=== PATIENT | female | born 2000 | race African-American/Black ===

== ENCOUNTER 2024-11-12 05:19 | Emergency (ER) | payer MEDICAID, SELFPAY ==
[2024-11-12 05:21] VITALS: BMI 46.4
[2024-11-12 05:38] VITALS: BP 119/74; PULSE 98; RESP 16; TEMP 37.2; O2SAT 100
--- NOTE | 2024-11-12 06:01 | PD.EDURI ---
Upper Respiratory Inf. RME/HPI General Chief Complaint: Flu Like Symptoms Stated Complaint: CONGESTION, SOB, MIGRAINE H/A Time Seen by Provider: 11/12/24 05:53 Source: patient Arrival date/time: 11/12/24 05:19 23-year-old obese female presents emergency department complaining of nasal congestion, headache, cough, and generalized bodyaches for 2 days. Mode of arrival: ambulatory Limitations: no limitations Related Data Previous Rx's ?Medication ?Instructions ?Recorded acetaminophen 500 mg capsule 500 mg PO Q6H PRN pain #30 caps 11/12/24 Allergies Allergy/AdvReac Type Severity Reaction Status Date / Time No Known Allergies Allergy Verified 03/01/24 20:34 Review of Systems Review of Systems Systems Reviewed: All systems reviewed, normal except as documented Constitutional Constitutional: Reports system reviewed and no additional complaints, except as documented, Reports body ache(s), Denies chills, Denies fever(s) and Reports headache(s) Eyes Eyes: Reports system reviewed and no additional complaints, except as documented and Denies change in vision ENT Ears, Nose, Mouth, and Throat: Reports system reviewed and no additional complaints, except as documented, Denies disequilibrium, Denies dizziness, Reports headache(s), Reports nasal congestion, Denies sore throat and Denies vertigo Cardiovascular Cardiovascular: Reports system reviewed and no additional complaints, except as documented, Denies chest pain and Denies dyspnea Respiratory Respiratory: Reports system reviewed and no additional complaints, except as documented, Denies chest congestion, Reports cough and Denies dyspnea Gastrointestinal Gastrointestinal: Reports system reviewed and no additional complaints, except as documented, Denies abdominal pain, Denies nausea and Denies vomiting Musculoskeletal Musculoskeletal: Reports system reviewed and no additional complaints, except as documented, Denies abnormal gait and Denies arthralgias Integumentary/Breasts Skin/Breast: Reports system reviewed and no additional complaints, except as documented, Denies erythema, Denies rash and Denies wounds Neurologic Neurologic: Reports system reviewed and no additional complaints, except as documented, Denies abnormal gait, Denies disequilibrium, Denies dizziness, Reports headache(s) and Denies vertigo Past Medical History Social History SMOKING STATUS: Never smoker ED Exam General Limitations: Present no limitations General appearance: Present alert and in no apparent distress Head Head exam: Present atraumatic Eye Eye exam: Present normal appearance, PERRL and EOMI ENT ENT exam: Present normal exam, normal oropharynx and mucous membranes moist Neck Neck exam: Present normal inspection, full ROM and trachea midline Chest Chest inspection: Present normal inspection and symmetric chest wall rise Respiratory Respiratory exam: Present normal lung sounds bilaterally Cardiovascular Cardiovascular exam: Present regular rate, normal rhythm and normal heart sounds Abdominal Exam Abdominal exam: Present soft and normal bowel sounds Extremities Exam Extremities exam: Present normal inspection and full ROM Back Exam Back exam: Present normal inspection and full ROM Neurological Exam Neurological exam: Present alert, oriented X3 and CN II-XII intact Psychiatric Psychiatric exam: Present normal affect and normal mood Skin Skin exam: Present warm, dry, intact and normal color Course Quality Measures none Orders Category Date Time Status Bedside COVID-19 Antigen Test NOW Care 11/12/24 06:01 Active Bedside Influenza A&B Antigen Test NOW Care 11/12/24 06:01 Completed Strep A Rapid Stat Lab 11/12/24 06:20 Completed Acetaminophen Tab [Tylenol ES Tab] Med 11/12/24 06:05 Discontinued 1,000 mg PO X1 ONE Vital Signs Vital signs: Vital Signs Temperature 98.9 F 11/12/24 05:38 Pulse Rate 98 11/12/24 05:38 Respiratory Rate 16 11/12/24 05:38 Blood Pressure 119/74 11/12/24 05:38 Pulse Oximetry (%) 100 11/12/24 05:38 Oxygen Delivery Method Room Air 11/12/24 05:38 100% room air within normal limits Upper Respiratory Infection MDM Narrative MDM Narrative:: 31-year-old female presents emergency department complaining of cough, headache, and right facial pain that is been ongoing for 2 weeks. Patient data External records reviewed:: [facility] previous records Clinical information provided by:: patient Social determinants that could affect healthcare access:: none Patient has the following chronic illnesses:: None How is presenting disease/condition affected by chronic disease/condition?: no chronic disease Evaluation data The following diagnostics were reviewed and interpreted by me:: lab results Lab and/or radiology exams considered but not ordered:: Ordered Interpretation Summary: Interpreted by me Medications / Prescriptions Medications or Prescriptions considered but not ordered:: ordered Medication administrations:: Medication Administration History Discontinued Medications Acetaminophen (Acetaminophen 500 Mg Tablet) 1,000 mg PO X1 ONE Stop: 11/12/24 06:06 Last Admin: 11/12/24 06:21 Dose: 1,000 mg Documented By: RC given Consultations Consultation(s) initiated? (list below): No Diagnosis Upper Respiratory Differential Diagnosis: upper respiratory infection, viral infection, bronchitis, influenza and pharyngitis Most likely diagnosis given after review of the tests above:: viral infection Admission Indicated Admission indicated?: not indicated Admission Request Was there a request for admission?: No Disposition Plan Disposition Plan: Discharge Discharge Attestation Discharge Attestation: The patient and all family members were given an opportunity to ask questions and understood the discharge instructions. Discharge instructions specifically effects, indications for sooner follow up or return to the emergency department, and the expected course of current diagnosis. Patient condition: Stable Discharge Plan Plan Patient Disposition: HOME (Self Care) Disposition Comment: stable Prescriptions/Referrals Prescriptions/Med Rec: New acetaminophen 500 mg capsule 500 mg PO Q6H PRN (Reason: pain) Qty: 30 0RF Referrals: Paul Lou MD [Primary Care Provider] - In 1 week Problem List Clinical Impression: Viral infection Patient/Caregiver Discharge Instructions Discharge Activity: activity as tolerated Education Materials: ED Viral Syndrome (Adult) Additional Instructions: take tylenol as needed for pain. Drink plenty of fluids. Follow up with primary doctor in 2-3 days. Return to ER for any worsening symptoms or as needed. Print Language: Upper Sorbian Stand Alone Forms: Tiffanie Award Info., Patient Portal Info Letter DON/SEBASTIAN Supervising Physician DON/SEBASTIAN Supervising Physician: Dr. Ayala
[2024-11-12] MEDS: ACETAMINOPHEN 500 MG TABLET 1000 MG PO (06:21)
[2024-11-12 07:01] LABS: Strep A Rapid Negative (Negative)
== END 2024-11-12 08:14 | disposition home or self-care (01) ==
PROVIDERS: Emergency Provider Emergency Medicine; PCP Family Medicine
DX: B34.9 Viral infection, unspecified (principal)
CPT/HCPCS: 87400; 87651; 87811; 99283; A9270

== ENCOUNTER 2024-11-14 03:35 | Emergency (ER) | payer MEDICAID, SELFPAY ==
[2024-11-14 03:35] VITALS: BMI 45.7
[2024-11-14 03:41] VITALS: BP 159/94; PULSE 85; RESP 18; TEMP 36.7; O2SAT 99
--- NOTE | 2024-11-14 03:52 | EDNOTE_ITS ---
ED Female Urogenital RME/HPI General Chief complaint: Urogenital-Female Stated complaint: BURNING WITH URINATION 2MONTHS PREG Time Seen by Provider: 11/14/24 03:42 Source: patient Arrival date/time: 11/14/24 03:35 23-year-old female G1 approximately 8 weeks presents emergency dep artment complaining of dysuria that started today. Patient Nu[place] any vaginal bleeding or abdominal cramping. Mode of arrival: ambulatory Limitations: no limitations Related Data Previous Rx's ?Medication ?Instructions ?Recorded acetaminophen 500 mg capsule 500 mg PO Q6H PRN pain #30 caps 11/12/24 cephalexin 500 mg capsule 500 mg PO QID 7 days #28 caps 11/14/24 Allergies Allergy/AdvReac Type Severity Reaction Status Date / Time No Known Allergies Allergy Verified 03/01/24 20:34 Review of Systems Review of Systems Systems Reviewed: All systems reviewed, normal except as documented Constitutional Constitutional: Reports system reviewed and no additional complaints, except as documented, Denies body ache(s), Denies chills and Denies fever(s) Eyes Eyes: Reports system reviewed and no additional complaints, except as documented and Denies change in vision ENT Ears, Nose, Mouth, and Throat: Reports system reviewed and no additional complaints, except as documented, Denies disequilibrium, Denies dizziness, Denies sore throat and Denies vertigo Cardiovascular Cardiovascular: Reports system reviewed and no additional complaints, except as documented, Denies chest pain and Denies dyspnea Respiratory Respiratory: Reports system reviewed and no additional complaints, except as documented, Denies chest congestion, Denies cough and Denies dyspnea Gastrointestinal Gastrointestinal: Reports system reviewed and no additional complaints, except as documented, Denies abdominal pain, Denies nausea and Denies vomiting Genitourinary Genitourinary: Reports dysuria Musculoskeletal Musculoskeletal: Reports system reviewed and no additional complaints, except as documented, Denies abnormal gait and Denies arthralgias Integumentary/Breasts Skin/Breast: Reports system reviewed and no additional complaints, except as documented, Denies erythema, Denies rash and Denies wounds Neurologic Neurologic: Reports system reviewed and no additional complaints, except as documented, Denies abnormal gait, Denies disequilibrium, Denies dizziness and Denies vertigo Past Medical History Social History SMOKING STATUS: Never smoker ED Exam General Limitations: Present no limitations General appearance: Present alert and in no apparent distress Head Head exam: Present atraumatic Eye Eye exam: Present normal appearance, PERRL and EOMI ENT ENT exam: Present normal exam, normal oropharynx and mucous membranes moist Neck Neck exam: Present normal inspection, full ROM and trachea midline Chest Chest inspection: Present normal inspection and symmetric chest wall rise Respiratory Respiratory exam: Present normal lung sounds bilaterally Cardiovascular Cardiovascular exam: Present regular rate, normal rhythm and normal heart sounds Abdominal Exam Abdominal exam: Present soft and normal bowel sounds Extremities Exam Extremities exam: Present normal inspection and full ROM Back Exam Back exam: Present normal inspection and full ROM Neurological Exam Neurological exam: Present alert, oriented X3 and CN II-XII intact Psychiatric Psychiatric exam: Present normal affect and normal mood Skin Skin exam: Present warm, dry, intact and normal color Course Quality Measures none Orders Category Date Time Status Urinalysis, C/S if Indicated Stat Lab 11/14/24 03:54 Completed Urine Culture Stat Lab 11/14/24 03:54 Received Ondansetron Odt [Zofran Odt] Med 11/14/24 04:18 Discontinued 4 mg PO X1 ONE cefTRIAXone [Rocephin] 1,000 mg Med 11/14/24 04:18 Discontinued Lidocaine 1% 20 ml [Xylocaine 1% 20 ML] 2.1 ml IM X1 Vital Signs Vital signs: Vital Signs Temperature 98.0 F 11/14/24 03:41 Pulse Rate 85 11/14/24 03:41 Respiratory Rate 18 11/14/24 03:41 Blood Pressure 159/94 H 11/14/24 03:41 Pulse Oximetry (%) 99 11/14/24 03:41 Oxygen Delivery Method Room Air 11/14/24 03:41 99% room air within normal limits Urogenital - Female MDM Narrative MDM Narrative:: 23-year-old female G1 approximately 8 weeks presents emergency department complaining of dysuria that started today. Patient denies any vaginal bleeding or abdominal cramping, fever, chills, nausea vomiting, or any other associated symptom. Urinalysis consistent with acute urinary tract infection. Patient given IM Rocephin and discharged on oral antibiotic. Instructed patient to follow-up with primary care provider and [employer]ED [employer]ASSEMBLER upon discharge and return to emergency department for any worsening symptoms or as needed. Patient data External records reviewed:: [facility] previous records Clinical information provided by:: patient Social determinants that could affect healthcare access:: none Patient has the following chronic illnesses:: N/A How is presenting disease/condition affected by chronic disease/condition?: no chronic disease Evaluation data The following diagnostics were reviewed and interpreted by me:: lab results Lab and/or radiology exams considered but not ordered:: Ordered Interpretation Summary: Interpreted by me Medications / Prescriptions Medications or Prescriptions considered but not ordered:: Ordered Medication administrations:: Medication Administration History Discontinued Medications Ceftriaxone Sodium 1,000 mg/ (Lidocaine HCl 2.1 ml) 0 mg IM X1 ONE Stop: 11/14/24 04:19 Ondansetron HCl (Ondansetron Odt 4 Mg Tabrap) 4 mg PO X1 ONE; Protocol Stop: 11/14/24 04:19 Given Consultations Consultation(s) initiated? (list below): No Diagnosis Urogenital Female Differential Diagnosis: urinary tract infection, trichomoniasis, cervicitis, vaginitis and cystitis Most likely diagnosis given after review of the tests above:: Urinary tract infection during Admission Indicated Admission indicated?: not indicated Admission Request Was there a request for admission?: No Disposition Plan Disposition Plan: Discharge Discharge Attestation Discharge Attestation: The patient and all family members were given an opportunity to ask questions and understood the discharge instructions. Discharge instructions specifically effects, indications for sooner follow up or return to the emergency department, and the expected course of current diagnosis. Patient condition: Stable Discharge Plan Plan Patient Disposition: HOME (Self Care) Disposition Comment: Stable Prescriptions/Referrals Prescriptions/Med Rec: New cephalexin 500 mg capsule 500 mg PO QID 7 Days Qty: 28 0RF No Action acetaminophen 500 mg capsule 500 mg PO Q6H PRN (Reason: pain) Qty: 30 0RF Referrals: Temporary Provider,ED [Primary Care Provider] - In 1 week Problem List Clinical Impression: Urinary tract infection during Patient/Caregiver Discharge Instructions Education Materials: ED CYSTITIS Female Adult Additional Instructions: Drink plenty of fluids and stay hydrated. Pelvic rest for 2 weeks. Take antibiotics as prescribed. Follow-up with [employer]ASSEMBLER and primary care provider in 2 to 3 days. Return immediately to emergency department for any worsening symptoms or as needed. Print Language: South Sudanese Stand Alone Forms: Tiffanie Award Info., Patient Portal Info Letter PA/SEBASTIAN Supervising Physician PA/MERCHANDISE PLANNING MANAGER Supervising Physician: Dr. Mora
[2024-11-14 04:03] LABS: Collection Type, Urine Clean Catch
[2024-11-14 04:08] LABS: Bilirubin,Urine Negative (Negative); Blood,Urine 3+ (Negative); Budding Yeast,Urine Present; Color,Urine Yellow (Lt Yel-Yel); Glucose, Urine Negative (Negative); Ketones,Urine Negative (Negative); Leukocyte Esterase,Urine Positive (Negative); Nitrite,Urine Negative (Negative); Protein,Urine 1+ (Neg - Trace); RBC,Urine 389 /hpf (0-3); Specific Gravity,Urine 1.019 (1.001-1.035); Squamous Epithelial Cell,Urine 5 /hpf (0-5); Urobilinogen,Urine Negative mg/dL (0.0-1.0); WBC,Urine 1272 /hpf (0-5)
[2024-11-14 04:09] LABS: Clarity,Urine Turbid (Clear/Hazy); Culture Indicated,Urine Yes
[2024-11-14] MEDS: ONDANSETRON ODT 4 MG TABRAP PO (04:25)
[2024-11-14] MEDS: cefTRIAXone 1,000 MG, LIDOCAINE 1% 20 ML 2.1 ML IM (04:25)
== END 2024-11-14 04:28 | disposition home or self-care (01) ==
LOC: SERX 05:11
PROVIDERS: Emergency Provider Emergency Medicine; PCP Family Medicine
DX: O23.41 Unspecified infection of urinary tract in pregnancy, first trimester (principal); N39.0 Urinary tract infection, site not specified; Z3A.08 8 weeks gestation of pregnancy
CPT/HCPCS: 81001; 87077; 87086; 87186; 96372; 99283; J0696; J3490; Q0162

== ENCOUNTER 2024-11-15 01:42 | Emergency (ER) | payer MEDICAID, SELFPAY ==
[2024-11-15 01:43] VITALS: PULSE 95; RESP 18; O2SAT 99; BMI 45.1
--- NOTE | 2024-11-15 01:45 | EKG_ITS ---
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
[2024-11-15 01:47] VITALS: BP 137/77; PULSE 97; RESP 18; TEMP 36.7; O2SAT 100
--- NOTE | 2024-11-15 02:12 | EDNOTE_ITS ---
ED Arrhythmia Palp. 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 Patient no longer has those symptoms, but just wanted to be evaluated. Patient is currently and was treated yesterday for a UTI. Patient admits she has been stressed [place] [employer], but denies alcohol/drugs. Limitations: no limitations Related Data Previous Rx's ?Medication ?Instructions ?Recorded acetaminophen 500 mg capsule 500 mg PO Q6H PRN pain #30 caps 11/12/24 cephalexin 500 mg capsule 500 mg PO QID 7 days #28 caps 11/14/24 Allergies Allergy/AdvReac Type Severity Reaction Status Date / Time No Known Allergies Allergy Verified 03/01/24 20:34 Review of Systems Review of Systems Systems Reviewed: All systems reviewed, normal except as documented Constitutional Constitutional: Reports system reviewed and no additional complaints, except as documented, Denies fever(s) and Denies headache(s) ENT Ears, Nose, Mouth, and Throat: Denies disequilibrium and Denies headache(s) Cardiovascular Cardiovascular: Reports system reviewed and no additional complaints, except as documented, Reports as per HPI, Denies chest pain, Denies dyspnea and Reports palpitations Respiratory Respiratory: Reports system reviewed and no additional complaints, except as documented, Denies cough and Denies dyspnea Gastrointestinal Gastrointestinal: Reports system reviewed and no additional complaints, except as documented, Denies abdominal pain, Denies nausea and Denies vomiting Neurologic Neurologic: Reports system reviewed and no additional complaints, except as documented, Denies confusion, Denies disequilibrium and Denies headache(s) Psychiatric Psychiatric: Denies confusion Endocrine Endocrine: Reports palpitations Past Medical History Past Medical History CARDIAC: Negative Congestive Heart Failure RESPIRATORY: Negative Chronic Obstructive Pulmonary Disease (COPD) GENITOURINARY: Negative Renal Disease ENDOCRINE: Negative Diabetes Mellitus Type 1 or Diabetes Mellitus Type 2 Social History SMOKING STATUS: Never smoker ED Exam General Limitations: Present no limitations General appearance: Present alert and in no apparent distress Head Head exam: Present atraumatic Eye Eye exam: Present normal appearance, PERRL and EOMI ENT ENT exam: Present normal exam, normal oropharynx and mucous membranes moist Neck Neck exam: Present normal inspection, full ROM and trachea midline Chest Chest inspection: Present normal inspection and symmetric chest wall rise Respiratory Respiratory exam: Present normal lung sounds bilaterally Cardiovascular Cardiovascular exam: Present regular rate, normal rhythm and normal heart sounds Abdominal Exam Abdominal exam: Present soft and normal bowel sounds Extremities Exam Extremities exam: Present normal inspection and full ROM Back Exam Back exam: Present normal inspection and full ROM Neurological Exam Neurological exam: Present alert, oriented X3 and CN II-XII intact Psychiatric Psychiatric exam: Present normal affect and normal mood Skin Skin exam: Present warm, dry, intact and normal color Course Quality Measures none Orders Category Date Time Status EKG (ED ONLY) *Do not use* NOW Care 11/15/24 01:45 Completed EKG (ED Only) Stat Exams 11/15/24 01:45 Draft Vital Signs Vital signs: Vital Signs Temperature 98.0 F 11/15/24 01:47 Pulse Rate 97 11/15/24 01:47 Respiratory Rate 18 11/15/24 01:47 Blood Pressure 137/77 H 11/15/24 01:47 Pulse Oximetry (%) 100 11/15/24 01:47 Oxygen Delivery Method Room Air 11/15/24 01:47 Arrhythmia/Palpitations MDM Narrative MDM Narrative:: 23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 Patient no longer has those symptoms, but just wanted to be evaluated. Patient is currently and was treated yesterday for a UTI. Patient admits she has been stressed at [place] today [place] [employer], but denies alcohol/drugs. Physical exam reveals clear ENT and lungs. Normal pupil response and EOM. ENT clear. RRR. Patient is afebrile, calm, and alert. EKG is NSR. Patient has pending cardiology referral for Holter monitor. Patient data External records reviewed:: [facility] previous records Clinical information provided by:: patient Social determinants that could affect healthcare access:: none Patient has the following chronic illnesses:: unknown neurological disorder How is presenting disease/condition affected by chronic disease/condition?: exacerbated by Evaluation data The following diagnostics were reviewed and interpreted by me:: EKG tracing(s) Lab and/or radiology exams considered but not ordered:: ordered Interpretation Summary: above Medications / Prescriptions Medications or Prescriptions considered but not ordered:: not ordered Medication administrations:: n/a Consultations Consultation(s) initiated? (list below): No Diagnosis Differential diagnosis arrhythmia/palpitations: palpitations, anxiety, sinus tachycardia, artial fibrillation, artial flutter, ventricular premature beats, supraventricular tachycardia, ventricular tachycardia and WPW Most likely diagnosis given after review of the tests above:: palps Admission Indicated Admission indicated?: not indicated Admission Request Was there a request for admission?: No Disposition Plan Disposition Plan: Discharge Discharge Attestation Discharge Attestation: The patient and all family members were given an opportunity to ask questions and understood the discharge instructions. Discharge instructions specifically effects, indications for sooner follow up or return to the emergency department, and the expected course of current diagnosis. Patient condition: Stable Discharge Plan Plan Patient Disposition: HOME (Self Care) Disposition Comment: Stable Prescriptions/Referrals Prescriptions/Med Rec: No Action cephalexin 500 mg capsule 500 mg PO QID 7 Days Qty: 28 0RF acetaminophen 500 mg capsule 500 mg PO Q6H PRN (Reason: pain) Qty: 30 0RF Referrals: Paul Lou MD [Primary Care Provider] - In 1 week Problem List Clinical Impression: Palpitations Patient/Caregiver Discharge Instructions Education Materials: ED Palpitations Additional Instructions: Please follow-up with PCP within 24-48 hours and return immediately if symptoms worsen. Good luck with green marketing specialist appt! Print Language: Italian Stand Alone Forms: Patient Portal Info Letter DON/SEBASTIAN Supervising Physician ANDRES Supervising Physician: Dr. Mora
== END 2024-11-15 02:24 | disposition home or self-care (01) ==
PROVIDERS: Emergency Provider Emergency Medicine; PCP Family Medicine
DX: O99.411 Diseases of the circulatory system complicating pregnancy, first trimester (principal); R00.2 Palpitations; Z3A.08 8 weeks gestation of pregnancy
CPT/HCPCS: 93005; 99283

== ENCOUNTER 2024-11-16 13:03 | Emergency (ER) | payer MEDICAID, SELFPAY ==
[2024-11-16 14:13] VITALS: BP 136/87; PULSE 98; RESP 18; TEMP 37.2; O2SAT 100; BMI 46.6
--- NOTE | 2024-11-16 14:34 | EDNOTE_ITS ---
ED OB Contraction Preg RMI/HPI General Stated complaint: SPOTTING/DIFF BREATHING x 4 DAYS, + PREB Time Seen by Provider: 11/16/24 14:20 Arrival date/time: 11/16/24 13:03 RME / HPI RME / HPI Narrative: DR. BOWEN MAIN ED EVALUATION: 23-year-old female, patient G1, P0 at 7 weeks 4 days by LMP on 09/23/2024, presents to the Emergency Department with complaint of pelvic cramping and vaginal bleeding. Symptoms are moderate. Related Data Previous Rx's ?Medication ?Instructions ?Recorded acetaminophen 500 mg capsule 500 mg PO Q6H PRN pain #30 caps 11/12/24 cephalexin 500 mg capsule 500 mg PO QID 7 days #28 caps 11/14/24 Allergies Allergy/AdvReac Type Severity Reaction Status Date / Time No Known Allergies Allergy Verified 11/16/24 13:06 Review of Systems Review of Systems Systems Reviewed: All systems reviewed, normal except as documented Narrative Review of Systems: GEN: No fever, no chills, no weight loss EYES: No discharge, no visual changes, no pain HEENT: No ear pain, no congestion, no sore throat PULM: No shortness of breath, no cough, no congestion CV: No chest pain, no dyspnea on exertion, no palpitations GI: No nausea, no vomiting, no diarrhea, + pelvic cramping, no constipation : No frequency, no urgency and no dysuria + vaginal bleeding MUSC/SKEL: No joint pain, no back pain SKIN: No rash PSYCH: No hallucinations, no depression HEME/LYMPH: No easy bleeding or bruising tendencies NEURO: No weakness, no headache Past Medical History Past Medical History CARDIAC: Negative Congestive Heart Failure RESPIRATORY: Negative Chronic Obstructive Pulmonary Disease (COPD) GENITOURINARY: Negative Renal Disease ENDOCRINE: Negative Diabetes Mellitus Type 1 or Diabetes Mellitus Type 2 Social History SMOKING STATUS: Never smoker SUBSTANCE USE: does not use ALCOHOL: Never ED Exam Narrative Physical exam: GENERAL APPEARANCE: alert and oriented x 4, well-developed, well-nourished, no acute distress VITALS: All vitals were reviewed and the pulse ox is 100% on room air, which is normal according to my interpretation. HEENT: Normocephalic, atraumatic; pupils equal, round, reactive to light; EOMI; mucous membranes pink, moist; oropharynx clear NECK: Supple LUNGS: CTABL; no wheezes, no rales, no rhonchi HEART: Regular rate, regular rhythm; normal S1, S2; no murmurs ABDOMEN: non distended; normal BS; soft, no tenderness, no guarding, no rebound; no masses, no organomegaly, no hernia BACK: no CVA tenderness EXTREMITIES: atraumatic; no edema NEUROLOGIC: awake; alert and oriented x4; cranial nerves II-XII grossly intact; no focal sensory or motor deficits PSYCHIATRIC: appropriate mood and affect SKIN: warm, dry, normal color; no rashes Course Quality Measures none Orders Category Date Time Status US OB <= 14 weeks fetus Stat Exams 11/16/24 14:35 Completed US OB transvaginal Stat Exams 11/16/24 14:35 Completed Beta HCG,Quantitative Stat Lab 11/16/24 15:06 Results CBC Stat Lab 11/16/24 15:06 Completed CMP [Comprehensive Metabolic Panel] Stat Lab 11/16/24 15:06 Results Type and Screen Stat Lab 11/16/24 15:06 Results UA, C/S IF [Urinalysis, C/S if Indicated] Stat Lab 11/16/24 14:50 Completed Urine Culture Stat Lab 11/16/24 14:50 Received Reevaluation(s) Reevaluation #1: Patient remains clinically stable throughout the emergency department visit. Re- assessment at the time of disposition demonstrates that the patient is in no acute distress. We reviewed all the results, analysis, and treatment plans. Patient is amenable to discharge. Strict return precautions were outlined. Patient was discharged in stable condition. Time: 16:15 Vital Signs Vital signs: Vital Signs Temperature 99.0 F 11/16/24 14:13 Pulse Rate 98 11/16/24 14:13 Respiratory Rate 18 11/16/24 14:13 Blood Pressure 136/87 H 11/16/24 14:13 Pulse Oximetry (%) 100 11/16/24 14:13 Oxygen Delivery Method Room Air 11/16/24 14:13 Vaginal Bleeding Patient data External records reviewed:: [facility] previous records (Reviewed last ED visit dated 11/15/24, discharged with the following: Palpitations.) Clinical information provided by:: patient Social determinants that could affect healthcare access:: none Patient has the following chronic illnesses:: Denies any PMHx, surgeries, daily medications, or known allergies. G1, P0 at 7 weeks 4 days by LMP on 09/23/2024. How is presenting disease/condition affected by chronic disease/condition?: no chronic disease Evaluation data The following diagnostics were reviewed and interpreted by me:: lab results and radiology exam(s) Lab and/or radiology exams considered but not ordered:: none Interpretation Summary: Procedure(s): US OB transvaginal Accession Number(s): [id number] cc: Paul Lou MD; Galen Burk MD; Mindi Bowen MD~ ADDENDUM ADDENDUM #1 Addendum: Impression should read Viable intrauterine gestation 6 weeks 4 days ORIGINAL REPORT Examination: OB Transvaginal ultrasound of the pelvis, complete Technique: Transvaginal sonographic images pelvis performed using victoria scale imaging Exam date and time: November 16, 2024 1522 hours INDICATIONS: Vaginal bleeding beginning 4 days ago FINDINGS: Uterus 10.0 x 5.3 x 5.7 cm pole 0.7 cm correspondences 6 weeks 4 days gestational age Cardiac motion 125 BPM Ovaries obscured by bowel gas IMPRESSION: Viable intrauterine gestation 8 weeks 4 days Negative for subchorionic hemorrhage. Addendum Dictated By: Galen Burk MD Addendum Signed By: <Electronically signed by Galen Burk MD in OV> 11/16/241602 Addendum Cosigned By: DD/ /09/1603 TD/TT: 11/16/2401/09/1603 Examination: OB Transvaginal ultrasound of the pelvis, complete Technique: Transvaginal sonographic images pelvis performed using victoria scale imaging Exam date and time: November 16, 2024 1522 hours INDICATIONS: Vaginal bleeding beginning 4 days ago FINDINGS: Uterus 10.0 x 5.3 x 5.7 cm pole 0.7 cm correspondences 6 weeks 4 days gestational age Cardiac motion 125 BPM Ovaries obscured by bowel gas IMPRESSION: Viable intrauterine gestation 8 weeks 4 days Negative for subchorionic hemorrhage. Dictated By: Galen Burk MD Procedure(s): US OB <= 14 weeks fetus Accession Number(s): [id number] cc: Paul Lou MD; Galen Burk MD; Mindi Bowen MD~ Examination: Complete OB ultrasound, less than 14 weeks, transabdominal Date and time of exam: November 16, 2024 1513 hours INDICATIONS: Pelvic pain and vaginal bleeding beginning 4 days ago Technique: Obstetrical ultrasound images less than 14 weeks performed via transabdominal imaging Findings: A normal shaped single intrauterine gestation is present in the uterus. pole 0.8 cm corresponds to 6 week 6 day gestational age Cardiac motion 121 BPM Ultrasonographic survey of visible and placental structures unremarkable. Amniotic fluid volume appears appropriate for this estimated gestational age. Right ovary 4.5 x 2.7 x 3.4 cm arterial flow 23 x 22 mm cyst Left ovary obscured by bowel gas IMPRESSION: Viable intrauterine gestation 6 weeks 6 days. Dictated By: Galen Burk MD Medications / Prescriptions Medications or Prescriptions considered but not ordered:: none Medication administrations:: none Consultations Consultation(s) initiated? (list below): No Diagnosis Vaginal Bleeding Differential Diagnosis: missed , threatened , ectopic without intrauterine , vaginal bleeding and other (Vaginal bleeding affecting early ) Most likely diagnosis given after review of the tests above:: Vaginal bleeding affecting early Admission Indicated Admission indicated?: not indicated Admission Request Was there a request for admission?: No Disposition Plan Disposition Plan: Discharge Discharge Attestation Discharge Attestation: The patient and all family members were given an opportunity to ask questions and understood the discharge instructions. Discharge instructions specifically effects, indications for sooner follow up or return to the emergency department, and the expected course of current diagnosis. Patient condition: Stable Discharge Plan Plan Patient Disposition: HOME (Self Care) Prescriptions/Referrals Prescriptions/Med Rec: No Action cephalexin 500 mg capsule 500 mg PO QID 7 Days Qty: 28 0RF acetaminophen 500 mg capsule 500 mg PO Q6H PRN (Reason: pain) Qty: 30 0RF Referrals: Paul Lou MD [Primary Care Provider] - In 1 week Problem List Clinical Impression: Vaginal bleeding affecting early Patient/Caregiver Discharge Instructions Education Materials: Bleeding During Early Print Language: Thai Stand Alone Forms: Tiffanie Award Info., Patient Portal Info Letter
[2024-11-16 15:15] LABS: Collection Type, Urine Clean Catch
[2024-11-16 15:24] LABS: Bilirubin,Urine Negative (Negative); Blood,Urine Negative (Negative); Clarity,Urine Clear (Clear/Hazy); Color,Urine Lt-Yellow (Lt Yel-Yel); Glucose, Urine Negative (Negative); Ketones,Urine Negative (Negative); Leukocyte Esterase,Urine Negative (Negative); Nitrite,Urine Negative (Negative); Protein,Urine Negative (Neg - Trace); RBC,Urine 4 /hpf (0-3); Specific Gravity,Urine 1.018 (1.001-1.035); Squamous Epithelial Cell,Urine 4 /hpf (0-5); Urobilinogen,Urine Negative mg/dL (0.0-1.0); WBC,Urine 12 /hpf (0-5)
[2024-11-16 15:25] LABS: Basophils % (Auto) 0 % (0-2.5); Eosinophils # (Auto) 0.1 Thou/mm3 (0.0-0.5); Eosinophils % (Auto) 1 % (0-10); Hematocrit 36.5 % (36.0-46.0); Hemoglobin 12.2 g/dL (12.0-16.0); Immature Granulocytes % (Auto) 0 % (0-0); Immature Granulocytes Auto 0.03 Thou/mm3 (0.00-0.00); Lymphocytes # (Auto) 2.9 Thou/mm3 (1.0-4.8); Lymphocytes % (Auto) 30 % (10-50); Mean Corpuscular HGB Conc 33.4 g/dl (31.0-37.0); Mean Corpuscular Hemoglobin 26.3 pg (25.0-35.0); Mean Corpuscular Volume 79 fL (80-100); Monocytes # (Auto) 0.4 Thou/mm3 (0.0-0.8); Monocytes % (Auto) 5 % (0-12); Neutrophils % (Auto) 63 % (37-80); Nucleated Red Blood Cell % 0 /100 WBC (0); Platelet Count 283 Thou/mm3 (140-440); RDW Standard Deviation 39.4 fL (36.4-46.3); Red Blood Count 4.64 Miln/mm3 (4.00-5.20); White Blood Count 9.5 Thou/mm3 (3.6-11.0)
[2024-11-16 15:31] LABS: Culture Indicated,Urine Yes
[2024-11-16 15:41] LABS: Alanine Aminotransferase 13 U/L (10-49); Albumin, Serum 4.3 gm/dL (3.5-5.0); Albumin/Globulin Ratio 1.4 (1.2-2.2); Alkaline Phosphatase 72 U/L (46-116); Anion Gap 10 (7-16); Aspartate Amino Transferase 10 U/L (0-34); BUN/Creatinine Ratio 11 Ratio (12-20); Bilirubin,Total 0.5 mg/dL (0.3-1.2); Blood Urea Nitrogen 8 mg/dL (9-23); Calcium 9.2 mg/dL (8.3-10.6); Calcium (Corrected) 9.2 mg/dL (8.5-10.1); Carbon Dioxide 23.9 mMol/L (20.0-31.0); Chloride 103 mMol/L (98-107); Creatinine (Component) 0.7 mg/dL (0.6-1.3); Estimated Creatinine Clearance 150.6 mL/min (>60); Globulin 3.1 gm/dL (2.3-3.5); Glucose 80 mg/dL (74-106); Osmolality,Calculated 271 (275-295); Potassium 3.4 mMol/L (3.4-5.1); Sodium 137 mMol/L (136-145); Total Protein 7.4 gm/dL (5.7-8.2); eGFR > 60 See Note
[2024-11-16 16:21] LABS: Beta HCG,Quantitative 38065 mIU/mL (<5.0)
== END 2024-11-16 16:28 | disposition home or self-care (01) ==
PROVIDERS: Emergency Provider Emergency Medicine; PCP Family Medicine
DX: O20.9 Hemorrhage in early pregnancy, unspecified (principal); Z3A.01 Less than 8 weeks gestation of pregnancy
CPT/HCPCS: 36415; 76801; 76817; 80053; 81001; 84702; 85025; 86850; 86900; 86901; 87086; 99284

== ENCOUNTER 2024-12-16 09:40 | Emergency (ER) | payer MEDICAID, SELFPAY ==
[2024-12-16 09:41] VITALS: BMI 45.7
[2024-12-16 09:48] VITALS: BP 116/77; PULSE 102; RESP 18; TEMP 37.2; O2SAT 98; BMI 45.7
--- NOTE | 2024-12-16 09:55 | XR_ITS ---
Examination: Complete OB ultrasound, less than 14 weeks, transabdominal Date and time of exam: December 16, 2024 1033 hrs. Indications: Vaginal bleeding and pelvic pain onset today Technique: Obstetrical ultrasound images less than 14 weeks performed via transabdominal imaging Findings: A normal shaped single intrauterine gestation is present in the uterus. pole 4.5 cm corresponds to 11 weeks 2 days gestational age Cardiac motion 167 BPM Ultrasonographic survey of visible and placental structures unremarkable. Amniotic fluid volume appears appropriate for this estimated gestational age. Right ovary 4.0 x 3.5 cm arterial flow 20 mm cyst Left ovary 2.8 x 2.9 cm arterial flow Impression: Viable intrauterine gestation 11 weeks 2 days.
--- NOTE | 2024-12-16 10:01 | EDNOTE_ITS ---
ED OB Contraction Preg RMI/HPI General Chief complaint: Vaginal Bleeding Stated complaint: 11 WKS BLEEDING Time Seen by Provider: 12/16/24 09:47 Arrival date/time: 12/16/24 09:40 23-year-old female approximately 11 weeks presents to the emergency department today with complaints of vaginal bleeding/spotting and cramping Limitations: no limitations Related Data Previous Rx's ?Medication ?Instructions ?Recorded acetaminophen 500 mg capsule 500 mg PO Q6H PRN pain #3 0 caps 11/12/24 Allergies Allergy/AdvReac Type Severity Reaction Status Date / Time No Known Allergies Allergy Verified 12/16/24 09:44 Review of Systems Review of Systems Systems Reviewed: All systems reviewed, normal except as documented Constitutional Constitutional: Reports system reviewed and no additional complaints, except as documented, Denies fever(s) and Denies headache(s) Eyes Eyes: Reports system reviewed and no additional complaints, except as documented and Denies blurry vision ENT Ears, Nose, Mouth, and Throat: Reports system reviewed and no additional complaints, except as documented, Denies headache(s), Denies nasal congestion and Denies nasal discharge Cardiovascular Cardiovascular: Reports system reviewed and no additional complaints, except as documented, Denies chest pain and Denies dyspnea Respiratory Respiratory: Reports system reviewed and no additional complaints, except as documented, Denies chest congestion, Denies cough and Denies dyspnea Gastrointestinal Gastrointestinal: Reports system reviewed and no additional complaints, except as documented and Denies abdominal pain Genitourinary Genitourinary: Reports system reviewed and no additional complaints, except as documented and Reports abnormal vaginal bleeding Integumentary/Breasts Skin/Breast: Reports system reviewed and no additional complaints, except as documented and Denies rash Neurologic Neurologic: Reports system reviewed and no additional complaints, except as documented, Reports as per HPI and Denies headache(s) Past Medical History Past Medical History NEUROLOGIC: Negative Neurological Disorders CARDIAC: Negative Cardiac Disorders ED Exam General Limitations: Present no limitations General appearance: Present alert and in no apparent distress Head Head exam: Present atraumatic, normocephalic and normal inspection Eye Eye exam: Present normal appearance, PERRL and EOMI ENT ENT exam: Present normal exam, normal oropharynx and mucous membranes moist Neck Neck exam: Present normal inspection, full ROM and trachea midline Chest Chest inspection: Present normal inspection and symmetric chest wall rise Respiratory Respiratory exam: Present normal lung sounds bilaterally; Absent respiratory distress, wheezes, stridor, accessory muscle use or prolonged expiratory phase Cardiovascular Cardiovascular exam: Present regular rate, normal rhythm and normal heart sounds Abdominal Exam Abdominal exam: Present soft and normal bowel sounds; Absent distention, tenderness, guarding, rebound or rigidity Extremities Exam Extremities exam: Present normal inspection and full ROM Back Exam Back exam: Present normal inspection and full ROM Neurological Exam Neurological exam: Present alert, oriented X3, CN II-XII intact, normal gait and reflexes normal; Absent motor sensory deficit Psychiatric Psychiatric exam: Present normal affect and normal mood Skin Skin exam: Present warm, dry, intact and normal color; Absent rash Course Quality Measures none Orders Category Date Time Status US OB <= 14 weeks fetus Stat Exams 12/16/24 09:55 Completed ABO/RH Type Stat Lab 12/16/24 10:14 Completed Beta HCG,Quantitative Stat Lab 12/16/24 10:14 Completed CBC Stat Lab 12/16/24 10:14 Completed Comprehensive Metabolic Panel Stat Lab 12/16/24 10:14 Completed UA, C/S IF [Urinalysis, C/S if Indicated] Stat Lab 12/16/24 10:25 Completed Vital Signs Vital signs: Vital Signs Temperature 98.9 F 12/16/24 09:48 Pulse Rate 102 H 12/16/24 09:48 Respiratory Rate 18 12/16/24 09:48 Blood Pressure 116/77 12/16/24 09:48 Pulse Oximetry (%) 98 12/16/24 09:48 Oxygen Delivery Method Room Air 12/16/24 09:48 O2 saturation 98% room air within normal limits Vaginal Bleeding MDM Narrative MDM Narrative: 23-year-old female approximately 11 weeks presents to the emergency department today with complaints of vaginal bleeding/spotting and cramping On exam patient does not appear ill or toxic in no acute distress Lab work and ultrasound obtained No acute emergent findings noted Patient appears to have viable at this time Patient instructed to follow-up with TRANSLATIONAL SPECIALIST soon as possible for worsening symptoms return immediately Patient data External records reviewed:: [facility] previous records Clinical information provided by:: patient Social determinants that could affect healthcare access:: none Patient has the following chronic illnesses:: None How is presenting disease/condition affected by chronic disease/condition?: no chronic disease Evaluation data The following diagnostics were reviewed and interpreted by me:: lab results and radiology exam(s) Lab and/or radiology exams considered but not ordered:: Labs and radiology obtained Interpretation Summary: Reviewed by me Medications / Prescriptions Medications or Prescriptions considered but not ordered:: Given no meds Medication administrations:: Given no meds Consultations Consultation(s) initiated? (list below): No Diagnosis Vaginal Bleeding Differential Diagnosis: missed and threatened Most likely diagnosis given after review of the tests above:: Threatened Admission Indicated Admission indicated?: not indicated Admission Request Was there a request for admission?: No Disposition Plan Disposition Plan: Discharge Discharge Attestation Discharge Attestation: The patient and all family members were given an opportunity to ask questions and understood the discharge instructions. Discharge instructions specifically effects, indications for sooner follow up or return to the emergency department, and the expected course of current diagnosis. Patient condition: Stable Discharge Plan Plan Patient Disposition: HOME (Self Care) Disposition Comment: Stable Prescriptions/Referrals Prescriptions/Med Rec: No Action acetaminophen 500 mg capsule 500 mg PO Q6H PRN (Reason: pain) Qty: 30 0RF Referrals: Paul Lou MD [Primary Care Provider] - In 1 week Problem List Clinical Impression: Vaginal bleeding affecting early Patient/Caregiver Discharge Instructions Education Materials: Bleeding During Early Additional Instructions: Please follow up with your TRANSLATIONAL SPECIALIST in the next 24-48hrs for any worsening symptoms return here immediately Print Language: [place]erratian Stand Alone Forms: Tiffanie Award Info., Patient Portal Info Letter DON/SEBASTIAN Supervising Physician DON/SEBASTIAN Supervising Physician: Dr. Ayala
[2024-12-16 10:25] LABS: Basophils % (Auto) 0 % (0-2.5); Eosinophils # (Auto) 0.1 Thou/mm3 (0.0-0.5); Eosinophils % (Auto) 1 % (0-10); Hemoglobin 12.7 g/dL (12.0-16.0); Immature Granulocytes % (Auto) 0 % (0-0); Immature Granulocytes Auto 0.01 Thou/mm3 (0.00-0.00); Lymphocytes # (Auto) 2.4 Thou/mm3 (1.0-4.8); Lymphocytes % (Auto) 27 % (10-50); Mean Corpuscular HGB Conc 34.3 g/dl (31.0-37.0); Mean Corpuscular Volume 79 fL (80-100); Monocytes # (Auto) 0.4 Thou/mm3 (0.0-0.8); Monocytes % (Auto) 4 % (0-12); Neutrophils % (Auto) 68 % (37-80); Nucleated Red Blood Cell % 0 /100 WBC (0); Platelet Count 293 Thou/mm3 (140-440); RDW Standard Deviation 38.6 fL (36.4-46.3); White Blood Count 8.8 Thou/mm3 (3.6-11.0)
[2024-12-16 10:48] LABS: Collection Type, Urine Clean Catch
[2024-12-16 10:50] LABS: Alanine Aminotransferase 11 U/L (10-49); Albumin, Serum 4.1 gm/dL (3.5-5.0); Albumin/Globulin Ratio 1.2 (1.2-2.2); Alkaline Phosphatase 64 U/L (46-116); Anion Gap 10 (7-16); Aspartate Amino Transferase 11 U/L (0-34); BUN/Creatinine Ratio 8 Ratio (12-20); Bilirubin,Total 0.4 mg/dL (0.3-1.2); Blood Urea Nitrogen 5 mg/dL (9-23); Calcium 9.6 mg/dL (8.3-10.6); Calcium (Corrected) 9.6 mg/dL (8.5-10.1); Carbon Dioxide 21.6 mMol/L (20.0-31.0); Chloride 104 mMol/L (98-107); Creatinine (Component) 0.6 mg/dL (0.6-1.3); Estimated Creatinine Clearance 180.1 mL/min (>60); Globulin 3.3 gm/dL (2.3-3.5); Glucose 93 mg/dL (74-106); Osmolality,Calculated 269 (275-295); Potassium 3.8 mMol/L (3.4-5.1); Sodium 136 mMol/L (136-145); Total Protein 7.4 gm/dL (5.7-8.2); eGFR > 60 See Note
[2024-12-16 11:10] LABS: Bacteria,Urine Rare; Bilirubin,Urine Negative (Negative); Blood,Urine 3+ (Negative); Clarity,Urine Turbid (Clear/Hazy); Color,Urine Yellow (Lt Yel-Yel); Culture Indicated,Urine Not Indicated; Glucose, Urine Negative (Negative); Ketones,Urine Negative (Negative); Leukocyte Esterase,Urine Negative (Negative); Nitrite,Urine Negative (Negative); PH,Urine 7.5 (5.0-7.0); Protein,Urine Trace (Neg - Trace); RBC,Urine 1 /hpf (0-3); Specific Gravity,Urine 1.015 (1.001-1.035); Squamous Epithelial Cell,Urine 50 /hpf (0-5); Urobilinogen,Urine Negative mg/dL (0.0-1.0); WBC,Urine 2 /hpf (0-5)
[2024-12-16 11:21] LABS: Beta HCG,Quantitative 62859 mIU/mL (<5.0)
[2024-12-16 12:29] VITALS: BP 131/83; PULSE 94; RESP 18; TEMP 36.7; O2SAT 97
== END 2024-12-16 12:33 | disposition home or self-care (01) ==
PROVIDERS: Nurse Practitioner Primary Care; Emergency Provider Emergency Medicine; PCP Family Medicine
DX: O20.9 Hemorrhage in early pregnancy, unspecified (principal); Z3A.11 11 weeks gestation of pregnancy
CPT/HCPCS: 36415; 76801; 80053; 81001; 84702; 85025; 86900; 86901; 99284

== ENCOUNTER 2025-01-16 16:40 | Emergency (ER) | payer MEDICAID, SELFPAY ==
--- NOTE | 2025-01-16 17:21 | XR_ITS ---
Examination: Complete OB ultrasound greater than 14 weeks Exam date and time: January 16, 2025 1748 hrs. Indications: Pelvic pain and vaginal cramping beginning 3 days ago Findings: Viable intrauterine single fetus with single amniotic sac presentation cephalic Cardiac motion 152 BPM Placenta anterior fundal grade 1 Umbilical cord insertion seen Amniotic fluid index adequate spine maternal right Cervix 4.0 cm Right ovary 4.0 cm arterial flow Left ovary 3.2 cm arterial flow, 18 mm follicular cyst. Composite estimated gestational age based on BPD, head circumference, abdominal circumference, femur length is 15 weeks 6 days Estimated weight 132 g. Survey of intracranial anatomy, spinal anatomy, abdominal anatomy, four-chamber heart performed with no abnormalities identified. Impression: Viable intrauterine gestation 15 weeks 6 days.
--- NOTE | 2025-01-16 17:22 | EDRME_ITS ---
Rapid Medical Screening Exam RME Arrival date/time: 01/16/25 16:40 24-year-old female with no known medical history presents to the emergency room with a chief complaint of bilateral pelvic cramping, patient spoke to her [employer]ACH[employer] SEWER over the phone and was instructed to come to the emergency room for further workup. Patient denies any dysuria or vaginal bleeding. I have greeted and performed a focused initial assessment of this patient. A comprehensive ED assessment and evaluation of the patient, analysis of all test results, and completion of the medical decision making process will be conducted by additional ED providers. Chief Complaint: OB/Uterine Contractions Time Seen by Provider: 01/16/25 16:50 Vital signs reviewed by provider: Yes
[2025-01-16 17:23] VITALS: BP 122/72; PULSE 102; RESP 20; TEMP 37.1; O2SAT 98; BMI 47.7
[2025-01-16 17:43] LABS: Basophils % (Auto) 0 % (0-2.5); Eosinophils # (Auto) 0.1 Thou/mm3 (0.0-0.5); Eosinophils % (Auto) 1 % (0-10); Hematocrit 34.1 % (36.0-46.0); Hemoglobin 11.7 g/dL (12.0-16.0); Immature Granulocytes % (Auto) 0 % (0-0); Immature Granulocytes Auto 0.03 Thou/mm3 (0.00-0.00); Lymphocytes % (Auto) 28 % (10-50); Mean Corpuscular HGB Conc 34.3 g/dl (31.0-37.0); Mean Corpuscular Hemoglobin 26.9 pg (25.0-35.0); Mean Corpuscular Volume 78 fL (80-100); Monocytes # (Auto) 0.5 Thou/mm3 (0.0-0.8); Monocytes % (Auto) 5 % (0-12); Neutrophils # (Auto) 6.9 Thou/mm3 (1.8-7.7); Neutrophils % (Auto) 66 % (37-80); Nucleated Red Blood Cell % 0 /100 WBC (0); Platelet Count 257 Thou/mm3 (140-440); RDW Standard Deviation 39.5 fL (36.4-46.3); Red Blood Count 4.35 Miln/mm3 (4.00-5.20); White Blood Count 10.5 Thou/mm3 (3.6-11.0)
[2025-01-16 18:09] LABS: Alanine Aminotransferase 23 U/L (10-49); Albumin, Serum 3.9 gm/dL (3.5-5.0); Albumin/Globulin Ratio 1.3 (1.2-2.2); Alkaline Phosphatase 57 U/L (46-116); Anion Gap 10 (7-16); Aspartate Amino Transferase 19 U/L (0-34); BUN/Creatinine Ratio 10 Ratio (12-20); Bilirubin,Total 0.4 mg/dL (0.3-1.2); Blood Urea Nitrogen 6 mg/dL (9-23); Calcium 9.4 mg/dL (8.3-10.6); Calcium (Corrected) 9.5 mg/dL (8.5-10.1); Carbon Dioxide 23.4 mMol/L (20.0-31.0); Chloride 106 mMol/L (98-107); Creatinine (Component) 0.6 mg/dL (0.6-1.3); Estimated Creatinine Clearance 170.2 mL/min (>60); Globulin 2.9 gm/dL (2.3-3.5); Glucose 72 mg/dL (74-106); Osmolality,Calculated 274 (275-295); Potassium 3.6 mMol/L (3.4-5.1); Sodium 139 mMol/L (136-145); Total Protein 6.8 gm/dL (5.7-8.2); eGFR > 60 See Note
[2025-01-16 18:39] LABS: Collection Type, Urine Clean Catch
[2025-01-16 18:50] LABS: Bilirubin,Urine Negative (Negative); Blood,Urine Negative (Negative); Clarity,Urine Clear (Clear/Hazy); Color,Urine Lt-Yellow (Lt Yel-Yel); Glucose, Urine Negative (Negative); Ketones,Urine Negative (Negative); Leukocyte Esterase,Urine Negative (Negative); Nitrite,Urine Negative (Negative); PH,Urine 6.5 (5.0-7.0); Protein,Urine Negative (Neg - Trace); RBC,Urine 1 /hpf (0-3); Specific Gravity,Urine 1.017 (1.001-1.035); Squamous Epithelial Cell,Urine 10 /hpf (0-5); Urobilinogen,Urine Negative mg/dL (0.0-1.0); WBC,Urine 1 /hpf (0-5)
[2025-01-16 18:56] LABS: Beta HCG,Quantitative 18771 mIU/mL (<5.0)
--- NOTE | 2025-01-16 20:42 | PD.EDPREG ---
ED OB Contraction Preg RMI/HPI General Chief complaint: OB/Uterine Contractions Stated complaint: 15WKS , CRAMPING & DISCOMFORT X 2-3 DAYS Time Seen by Provider: 01/16/25 16:50 Arrival date/time: 01/16/25 16:40 RME / HPI RME / HPI Narrative: 24-year-old female with no known medical history presents to the emergency room with a chief complaint of bilateral pelvic cramping, patient spoke to her ELECTRONIC PUBLISHER over the phone and was instructed to come to the emergency room for further workup. Patient denies any dysuria or vaginal bleeding. Related Data Previous Rx's ?Medication ?Instructions ?Recorded acetaminophen 500 mg capsule 500 mg PO Q6H PRN pain #30 caps 11/12/24 Allergies Allergy/AdvReac Type Severity Reaction Status Date / Time No Known Allergies Allergy Verified 01/16/25 16:44 Review of Systems Review of Systems Systems Reviewed: All systems reviewed, normal except as documented Past Medical History Past Medical History NEUROLOGIC: Negative Neurological Disorders CARDIAC: Negative Cardiac Disorders ED Exam Narrative Physical exam: Constitutional: no acute distress, age appropriate, non-toxic Eyes: PERRL, conjunctivae w/o pallor, EOMI HENT: normocephalic, atraumatic. Oral mucosa moist Respiratory Effort: no stridor, effort normal, no retractions Breath sounds: Clear bilaterally; No rales, No rhonchi, No wheezing Cardiovascular: regular rhythm, S1 and S2 normal, no murmur Abdominal: soft; non-distended, non-tender Musculoskeletal: no deformities, no swelling, no LE edema Skin: warm, dry; No rash Neurology: alert, oriented X 4. Normal gait. Moves all extremities spontaneously. Psychology: cooperative, normal mood Course Quality Measures none Orders Category Date Time Status US OB >= 14 weeks Fetus Stat Exams 01/16/25 17:21 Completed ABO/RH Type Stat Lab 01/16/25 17:36 Completed Beta HCG,Quantitative Stat Lab 01/16/25 17:36 Completed CBC Stat Lab 01/16/25 17:36 Completed CMP [Comprehensive Metabolic Panel] Stat Lab 01/16/25 17:36 Completed UA [Urinalysis] Stat Lab 01/16/25 18:00 Completed Vital Signs Vital signs: Vital Signs Temperature 98.8 F 01/16/25 17:23 Pulse Rate 102 H 01/16/25 17:23 Respiratory Rate 20 03/04/25 17:23 Blood Pressure 122/72 01/16/25 17:23 Pulse Oximetry (%) 98 01/16/25 17:23 Oxygen Delivery Method Room Air 01/16/25 17:23 OB/Uterine Contractions MDM Narrative MDM Narrative:: Patient with history as above presented with pelvic pain during . History obtained from patient. Patient was nontoxic, stable. Ambulatory. Exam as above. Blood pressure was not elevated. Labs reviewed. Hemoglobin stable. Rh positive. Reviewed external records. Differential diagnosis considered. Overall presentation is consistent with round ligament pain. Low suspicion for septic , ovarian torsion, ectopic . Consideration was given for admission, but the patient was stable for outpatient management. Disposition: Discussed need to follow up diagnostics, including incidental findings. Discharged with instructions to obtain outpatient OB follow up of patient?s symptoms and findings, with strict return precautions if patient develops new or worsening symptoms. Patient data External records reviewed:: [facility] previous records Clinical information provided by:: patient Social determinants that could affect healthcare access:: none Patient has the following chronic illnesses:: N/A How is presenting disease/condition affected by chronic disease/condition?: no chronic disease Evaluation data The following diagnostics were reviewed and interpreted by me:: lab results and radiology exam(s) Lab and/or radiology exams considered but not ordered:: None Interpretation Summary: Examination: Complete OB ultrasound greater than 14 weeks Exam date and time: January 16, 2025 1748 hrs. Indications: Pelvic pain and vaginal cramping beginning 3 days ago Findings: Viable intrauterine single fetus with single amniotic sac presentation cephalic Cardiac motion 152 BPM Placenta anterior fundal grade 1 Umbilical cord insertion seen Amniotic fluid index adequate spine maternal right Cervix 4.0 cm Right ovary 4.0 cm arterial flow Left ovary 3.2 cm arterial flow, 18 mm follicular cyst. Composite estimated gestational age based on BPD, head circumference, abdominal circumference, femur length is 15 weeks 6 days Estimated weight 132 g. Survey of intracranial anatomy, spinal anatomy, abdominal anatomy, four-chamber heart performed with no abnormalities identified. Impression: Viable intrauterine gestation 15 weeks 6 days. Medications / Prescriptions Medications or Prescriptions considered but not ordered:: N/A Medication administrations:: N/A Consultations Consultation(s) initiated? (list below): No Diagnosis OB Contractions Differential Diagnosis: other (See MDM) Most likely diagnosis given after review of the tests above:: Round ligament pain Admission Indicated Admission indicated?: not indicated Explain why admission is indicated or not indicated:: Stable for outpatient management Admission Request Was there a request for admission?: No Disposition Plan Disposition Plan: Discharge Discharge Attestation Discharge Attestation: The patient and all family members were given an opportunity to ask questions and understood the discharge instructions. Discharge instructions specifically effects, indications for sooner follow up or return to the emergency department, and the expected course of current diagnosis. Patient condition: Stable Discharge Plan Plan Patient Disposition: HOME (Self Care) Prescriptions/Referrals Prescriptions/Med Rec: No Action acetaminophen 500 mg capsule 500 mg PO Q6H PRN (Reason: pain) Qty: 30 0RF Referrals: Paul Lou MD [Primary Care Provider] - In 1 week Problem List Clinical Impression: Pain of round ligament Patient/Caregiver Discharge Instructions Education Materials: ED Abdominal Pain, Early Additional Instructions: Follow-up with your ELECTRONIC PUBLISHER. Return to the ED for any new or worsening symptoms. Print Language: Citizen Of [place] Stand Alone Forms: Tiffanie Award Info., Patient Portal Info Letter
== END 2025-01-16 20:55 | disposition home or self-care (01) ==
PROVIDERS: Nurse Practitioner Family; Emergency Provider Emergency Medicine; PCP Family Medicine
DX: O26.892 Other specified pregnancy related conditions, second trimester (principal); R10.2 Pelvic and perineal pain; Z3A.15 15 weeks gestation of pregnancy
CPT/HCPCS: 36415; 76805; 80053; 81001; 84702; 85025; 86900; 86901; 99284

== ENCOUNTER 2025-04-15 06:00 | Observation (INO) | payer MEDICAID, SELFPAY ==
[2025-04-15] VITALS (56 sets, daily range): BP systolic 113–160; BP diastolic 58–91; PULSE 100–124; RESP 24–99; TEMP 36.8; O2SAT 90–100; BMI 49.8
--- NOTE | 2025-04-15 06:50 | XR_ITS ---
Examination: Complete OB ultrasound greater than 14 weeks Date and time of exam: April 15, 2025 0755 hours INDICATIONS: Labor evaluation with onset of vaginal bleeding today Findings: Viable intrauterine single fetus with single amniotic sac presentation Vertex, variable Cardiac motion 162 BPM Placenta anterior fundal grade 2 Umbilical cord insertion seen Amniotic fluid index 6.9 cm Cervix ovaries obscured by the fetus and bowel gas. Composite estimated gestational age based on BPD, head circumference, abdominal circumference, femur length is 29 weeks 0 days Estimated weight 1291 g. Survey of intracranial anatomy, spinal anatomy, abdominal anatomy, four-chamber heart performed with no abnormalities identified. Impression: Viable intrauterine gestation vertex presentation No placental abruption.
[2025-04-15 08:48] LABS: Collection Type, Urine Clean Catch
[2025-04-15 08:56] LABS: Basophils % (Auto) 0 % (0-2.5); Eosinophils # (Auto) 0.1 Thou/mm3 (0.0-0.5); Eosinophils % (Auto) 1 % (0-10); Hematocrit 31.8 % (36.0-46.0); Hemoglobin 11.2 g/dL (12.0-16.0); Immature Granulocytes % (Auto) 1 % (0-0); Immature Granulocytes Auto 0.06 Thou/mm3 (0.00-0.00); Lymphocytes # (Auto) 2.4 Thou/mm3 (1.0-4.8); Lymphocytes % (Auto) 20 % (10-50); Mean Corpuscular HGB Conc 35.2 g/dl (31.0-37.0); Mean Corpuscular Hemoglobin 28.3 pg (25.0-35.0); Mean Corpuscular Volume 80 fL (80-100); Monocytes # (Auto) 0.5 Thou/mm3 (0.0-0.8); Monocytes % (Auto) 4 % (0-12); Neutrophils # (Auto) 8.9 Thou/mm3 (1.8-7.7); Neutrophils % (Auto) 74 % (37-80); Nucleated Red Blood Cell % 0 /100 WBC (0); Platelet Count 241 Thou/mm3 (140-440); RDW Standard Deviation 41.1 fL (36.4-46.3); Red Blood Count 3.96 Miln/mm3 (4.00-5.20)
[2025-04-15 09:08] LABS: Alanine Aminotransferase 11 U/L (10-49); Albumin, Serum 3.8 gm/dL (3.5-5.0); Albumin/Globulin Ratio 1.4 (1.2-2.2); Alkaline Phosphatase 95 U/L (46-116); Anion Gap 13 (7-16); Aspartate Amino Transferase 15 U/L (0-34); BUN/Creatinine Ratio 10 Ratio (12-20); Bilirubin,Total 0.6 mg/dL (0.3-1.2); Blood Urea Nitrogen < 5 mg/dL (9-23); Calcium 8.8 mg/dL (8.3-10.6); Carbon Dioxide 22.3 mMol/L (20.0-31.0); Chloride 106 mMol/L (98-107); Creatinine (Component) 0.5 mg/dL (0.6-1.3); Estimated Creatinine Clearance 217.7 mL/min (>60); Globulin 2.7 gm/dL (2.3-3.5); Glucose 95 mg/dL (74-106); Osmolality,Calculated 278 (275-295); Potassium 3.7 mMol/L (3.4-5.1); Sodium 141 mMol/L (136-145); Total Protein 6.5 gm/dL (5.7-8.2); Uric Acid 4.2 mg/dL (3.1-7.8); eGFR > 60 See Note
[2025-04-15 09:08] LABS: Creatinine,Random Urine 99 mg/dL (30-125); Protein Total, Random Urine 19 mg/dL (1-14)
[2025-04-15 09:09] LABS: Fibrinogen 383 mg/dL (175-375); INR 0.9 (0.9-1.3); Partial Thromboplastin Time 24.2 Seconds (22.0-36.0); Prothrombin Time 10.3 Seconds (9.0-12.2)
[2025-04-15 09:58] LABS: Bacteria,Urine Rare; Bilirubin,Urine Negative (Negative); Blood,Urine 2+ (Negative); Color,Urine Lt-Yellow (Lt Yel-Yel); Glucose, Urine Negative (Negative); Ketones,Urine Negative (Negative); Leukocyte Esterase,Urine Positive (Negative); Nitrite,Urine Negative (Negative); Protein,Urine Negative (Neg - Trace); RBC,Urine 5 /hpf (0-3); Specific Gravity,Urine 1.013 (1.001-1.035); Squamous Epithelial Cell,Urine 27 /hpf (0-5); Urobilinogen,Urine Negative mg/dL (0.0-1.0); WBC,Urine 12 /hpf (0-5)
[2025-04-15 09:59] LABS: Clarity,Urine Hazy (Clear/Hazy); Sperm,Urine Present
== END 2025-04-15 09:50 | disposition home or self-care (01) ==
PROVIDERS: Admitting Provider Obstetrics & Gynecology; Visit Provider Obstetrics & Gynecology
DX: O36.8130 Decreased fetal movements, third trimester, not applicable or unspecified (principal); O46.93 Antepartum hemorrhage, unspecified, third trimester; O26.893 Other specified pregnancy related conditions, third trimester; R10.30 Lower abdominal pain, unspecified; Z3A.29 29 weeks gestation of pregnancy
CPT/HCPCS: 36415; 59899; 76805; 80053; 81001; 82570; 84156; 84550; 85025; 85384; 85610; 85730

== ENCOUNTER 2025-05-06 14:18 | Observation (INO) | payer MEDICAID, SELFPAY ==
[2025-05-06] VITALS (31 sets, daily range): BP systolic 121–122; BP diastolic 59–67; PULSE 104–145; RESP 18–98; TEMP 36.7; O2SAT 91–100; BMI 50.7
--- NOTE | 2025-05-06 16:31 | ESPR_ITS ---
Documentation for date of: 05/06/25 OB Labor Progress Note Pelvic Exam Amniotic membrane status: Intact Contractions Monitor mode: External Contraction frequency: None Status status: Category l Assessment and Plan Comments: Triage Note Rosmery is a 24yo with SIUP at 30&6wk presenting to L&D for concern regarding an area on her abdomen. She notes that sometimes it is softer, sometimes firmer. No redness or lesion. She asked her CNM regarding the finding and didn't get a specific answer, so felt even more concern regarding it. Hasn't been bothering her in particular today. Just concerned. No ctx, lof, no vaginal bleeding. Normal movement. Current : complicated by current BMI 50, anemia (taking iron as best she can since it causes her constipation), she has had regular OB care with NICA Burgess ROS negative other than what was described above. Normotensive, mild tachycardia, afebrile General: well developed, well nourished, no acute distress, conversant Cardiac: normal heart rate Lungs: breathing without distress Abdomen: soft, gravid, non-tender, no rebound or guarding. Area of concern has no color change, no focal lesion. Slight firmness consistent with physiologic e caitlyn of pannus. NST: Reactive, +accels, no decels, mod digna [place]: irregular ctx Labs: Hgb: 10.7 Assessment: Rosmery is a 24yo with SIUP at 30&6wk with no concerning skin findings of abdomen- area of patient's concern is consistent with physiologic edema of pannus. Normotensive, but mild tachycardia. CBC ordered to rule out worsening anemia: Hgb is 10.7 (from 11.2 on 04/15). Benign exam. Reassuring status. Plan: -Discussed findings and diagnosis with patient and support person, provided reassurance, answered all questions to their apparent satisfaction -Continue routine follow up with NICA Burgess as scheduled -Encouraged to take iron every day and eat iron rich foods. Drink plenty of water and eat sufficient fiber as well. Rx iron and colace to her pharmacy on file. -Discussed return precautions -Safe for discharge home at this time Heather Casas MD
[2025-05-06 16:45] LABS: Basophils % (Auto) 0 % (0-2.5); Eosinophils # (Auto) 0.1 Thou/mm3 (0.0-0.5); Eosinophils % (Auto) 1 % (0-10); Hematocrit 30.3 % (36.0-46.0); Hemoglobin 10.7 g/dL (12.0-16.0); Immature Granulocytes % (Auto) 1 % (0-0); Immature Granulocytes Auto 0.07 Thou/mm3 (0.00-0.00); Lymphocytes # (Auto) 2.3 Thou/mm3 (1.0-4.8); Lymphocytes % (Auto) 22 % (10-50); Mean Corpuscular HGB Conc 35.3 g/dl (31.0-37.0); Mean Corpuscular Hemoglobin 28.3 pg (25.0-35.0); Mean Corpuscular Volume 80 fL (80-100); Monocytes # (Auto) 0.6 Thou/mm3 (0.0-0.8); Monocytes % (Auto) 6 % (0-12); Neutrophils # (Auto) 7.6 Thou/mm3 (1.8-7.7); Neutrophils % (Auto) 71 % (37-80); Nucleated Red Blood Cell % 0 /100 WBC (0); Platelet Count 197 Thou/mm3 (140-440); RDW Standard Deviation 42.1 fL (36.4-46.3); Red Blood Count 3.78 Miln/mm3 (4.00-5.20); White Blood Count 10.6 Thou/mm3 (3.6-11.0)
== END 2025-05-06 17:09 | disposition home or self-care (01) ==
PROVIDERS: Admitting Provider Obstetrics & Gynecology; Visit Provider Obstetrics & Gynecology
DX: O99.891 Other specified diseases and conditions complicating pregnancy (principal); O99.013 Anemia complicating pregnancy, third trimester; D64.9 Anemia, unspecified; R00.0 Tachycardia, unspecified; Z3A.30 30 weeks gestation of pregnancy
CPT/HCPCS: 36415; 59899; 85025

== ENCOUNTER 2025-05-25 23:47 | Observation (INO) | payer MEDICAID, SELFPAY ==
[2025-05-25 23:51] VITALS: BMI 51.0
[2025-05-26] VITALS (19 sets, daily range): BP systolic 93–121; BP diastolic 55–94; PULSE 110–129; RESP 19–98; TEMP 37.1; O2SAT 96–99
--- NOTE | 2025-05-26 01:14 | XR_ITS ---
Examination: Complete OB ultrasound greater than 14 weeks Date and time of exam: May 26, 2025, 0157 hours INDICATIONS: Pelvic pressure and pain today, labor evaluation Findings: Viable intrauterine single fetus with single amniotic sac presentation cephalic Cardiac motion 140 BPM Placenta anterior grade 3 Umbilical cord insertion seen Amniotic fluid index 11.5 cm spine anterior Cervix ovaries obscured by the fetus and bowel gas. Composite estimated gestational age based on BPD, head circumference, abdominal circumference, femur length is 36 weeks 5 days Estimated weight 2963.5 g. Survey of intracranial anatomy, spinal anatomy, abdominal anatomy, four-chamber heart performed with no abnormalities identified. Impression: Viable intrauterine gestation cephalic presentation.
--- NOTE | 2025-05-26 01:15 | XR_ITS ---
Examination: Biophysical profile, ultrasound Date and time of exam: May 26, 2025, 0151 hours INDICATIONS: Back and pelvic pressure beginning several hours ago, labor evaluation Technique: Multiple transabdominal sonographic images of the pelvis abdomen obtained. Attention is directed to the breathing movement, gross body movement, amniotic fluid volume and tone. Findings: Amniotic fluid index 11.5 cm Total biophysical profile is 8 of 8. breathing movement is 2. Gross body movement is 2. tone is 2. Qualitative amniotic fluid volume is 2 Impression: Biophysical profile is 8 of 8.
[2025-05-26 01:42] LABS: Collection Type, Urine Clean Catch
[2025-05-26 01:48] LABS: Bilirubin,Urine Negative (Negative); Blood,Urine 1+ (Negative); Clarity,Urine Clear (Clear/Hazy); Color,Urine Lt-Yellow (Lt Yel-Yel); Glucose, Urine Negative (Negative); Ketones,Urine Negative (Negative); Leukocyte Esterase,Urine Negative (Negative); Nitrite,Urine Negative (Negative); PH,Urine 6.5 (5.0-7.0); Protein,Urine Negative (Neg - Trace); RBC,Urine 2 /hpf (0-3); Specific Gravity,Urine 1.014 (1.001-1.035); Squamous Epithelial Cell,Urine 3 /hpf (0-5); Urobilinogen,Urine Negative mg/dL (0.0-1.0); WBC,Urine 4 /hpf (0-5)
[2025-05-26 01:54] LABS: Basophils # (Auto) 0.0 Thou/mm3 (0.0-0.2); Basophils % (Auto) 0 % (0-2.5); Eosinophils # (Auto) 0.1 Thou/mm3 (0.0-0.5); Eosinophils % (Auto) 1 % (0-10); Hematocrit 29.6 % (36.0-46.0); Hemoglobin 10.5 g/dL (12.0-16.0); Immature Granulocytes Auto 0.09 Thou/mm3 (0.00-0.00); Lymphocytes # (Auto) 2.9 Thou/mm3 (1.0-4.8); Lymphocytes % (Auto) 27 % (10-50); Mean Corpuscular HGB Conc 35.5 g/dl (31.0-37.0); Mean Corpuscular Hemoglobin 28.5 pg (25.0-35.0); Mean Corpuscular Volume 80 fL (80-100); Monocytes # (Auto) 0.7 Thou/mm3 (0.0-0.8); Monocytes % (Auto) 6 % (0-12); Neutrophils # (Auto) 6.9 Thou/mm3 (1.8-7.7); Neutrophils % (Auto) 65 % (37-80); Nucleated Red Blood Cell # 0.00 Thou/mm3 (0.00-0.00); Nucleated Red Blood Cell % 0 /100 WBC (0); Platelet Count 200 Thou/mm3 (140-440); RDW Standard Deviation 42.8 fL (36.4-46.3); Red Blood Count 3.68 Miln/mm3 (4.00-5.20); White Blood Count 10.7 Thou/mm3 (3.6-11.0)
[2025-05-26 02:35] LABS: Alanine Aminotransferase 8 U/L (10-49); Albumin, Serum 3.6 gm/dL (3.5-5.0); Albumin/Globulin Ratio 1.3 (1.2-2.2); Alkaline Phosphatase 128 U/L (46-116); Anion Gap 10 (7-16); Aspartate Amino Transferase 12 U/L (0-34); BUN/Creatinine Ratio 8 Ratio (12-20); Bilirubin,Total 0.7 mg/dL (0.3-1.2); Blood Urea Nitrogen < 5 mg/dL (9-23); Calcium 9.5 mg/dL (8.3-10.6); Calcium (Corrected) 9.8 mg/dL (8.5-10.1); Carbon Dioxide 24.5 mMol/L (20.0-31.0); Chloride 105 mMol/L (98-107); Creatinine (Component) 0.6 mg/dL (0.6-1.3); Estimated Creatinine Clearance 184.1 mL/min (>60); Globulin 2.7 gm/dL (2.3-3.5); Glucose 127 mg/dL (74-106); Osmolality,Calculated 276 (275-295); Potassium 3.8 mMol/L (3.4-5.1); Sodium 139 mMol/L (136-145); Total Protein 6.3 gm/dL (5.7-8.2); eGFR > 60 See Note
--- NOTE | 2025-05-26 03:11 | PRELIM_ITS ---
Obstetric ultrasound. May 26, 2025 0157 hours Clinical history: ABDOMINAL/LOW BACK PAIN, DETERMINE CERVICALL LENGTH Findings: There is a gravid uterus with a live fetus in cephalicpresentation of mean gestational age 36weeks and 5 days (by biometry). cardiac activity is present at a heart rate of 140beats per minute. The placenta is anteriorin location, maturity grade 3. There is no evidence of placenta previa or retroplacental hemorrhage. Amniotic fluid is adequate (EDUARDO = 11.5cm). Estimated weight is 2963.5grams+/- 439grams. Estimated due date by ultrasound is 06/18/2025. Cervical length obscured by head. umbilical cord, bladder, kidneys, stomach, spine are seen. Bilateral ovaries are obscured by bowel gas. Impression: Gravid uterus with a single live fetus in cephalicpresentation of mean gestational age 36weeks 5days. Cervical length obscured by head. Report Electronically Signed By: Markus Bernabe 05/26/2025 3:10:23 AM [EST]
--- NOTE | 2025-05-26 03:11 | PRELIM_ITS ---
Obstetric ultrasound (limited). May 26, 2025 0151 hours Clinical history: ABDOMINAL/LOW BACK PAIN Findings: cardiac activity is present at a heart rate of 145beats per minute. Amniotic fluid is adequate (EDUARDO = 11.5cm). Please refer to the report on the OB US submitted separately. Biophysical Profile: Breathing : 2 Tone : 2 Amniotic fluid : 2 Movement : 2 BPP Score : 8/8 Impression: Normal biophysical profile as recorded by the space technologist. Report Electronically Signed By: Markus Bernabe 05/26/2025 3:10:44 AM [EST]
== END 2025-05-26 04:54 | disposition home or self-care (01) ==
PROVIDERS: Admitting Provider Student in an Organized Health Care Education/Training Program; Visit Provider Student in an Organized Health Care Education/Training Program
DX: O26.893 Other specified pregnancy related conditions, third trimester (principal); Z3A.36 36 weeks gestation of pregnancy; M54.50 Low back pain, unspecified; R10.2 Pelvic and perineal pain
CPT/HCPCS: 36415; 59025; 59899; 76805; 76819; 80053; 81001; 85025

== ENCOUNTER 2025-06-01 08:39 | Outpatient (CLI) | payer MEDICAID, SELFPAY ==
[2025-06-01 08:50] VITALS: BP 119/54; PULSE 122; PULSE 124; O2SAT 98
[2025-06-01 08:54] VITALS: BMI 51.7
[2025-06-01 08:55] VITALS: BP 119/54; PULSE 120; PULSE 128; RESP 18; RESP 98; TEMP 36.8; O2SAT 98
[2025-06-01 09:00] VITALS: PULSE 123; O2SAT 99
[2025-06-01 09:05] VITALS: PULSE 120; O2SAT 99
--- NOTE | 2025-06-01 09:05 | PC.NURSE ---
858 dr heller in dept sbar pt presented to ob triage for repeat nst and maximilian, per pt states was told fluid was low on nst and told to return today for repeat. pt states had appt with MFM yest 05/31/2025 and told maximilian was 13.3 all normal. 34.4wsk, orders rec to only do nst and dc home once reactive no maximilian today
[2025-06-01 09:10] VITALS: PULSE 127; O2SAT 99
[2025-06-01 09:15] VITALS: PULSE 124; O2SAT 98
--- NOTE | 2025-06-01 09:22 | PC.NURSE ---
0922 discharge instructions reviewed labor precautions, kick counts, copies given, pt agrees/understands.
== END 2025-06-01 09:25 | disposition home or self-care (01) ==
LOC: S4S1 08:41 → S4SX 08:42
PROVIDERS: Referring Provider Obstetrics & Gynecology; Visit Provider Obstetrics & Gynecology
DX: Z34.03 Encounter for supervision of normal first pregnancy, third trimester (principal); Z36.9 Encounter for antenatal screening, unspecified; Z3A.34 34 weeks gestation of pregnancy
CPT/HCPCS: 59025

== ENCOUNTER 2025-06-16 12:09 | Emergency (ER) | payer MEDICAID, SELFPAY ==
[2025-06-16 12:26] VITALS: BP 139/85; PULSE 117; RESP 19; TEMP 36.7; O2SAT 98; BMI 42.6
--- NOTE | 2025-06-16 12:30 | EKG_ITS ---
[facility] Test Date: 2025-06-16 Pat Name: VITALY HENRIQUEZ Department: Room: - Gender: Female Line Locator: : [id number] Requested By: Ashvin Mac (KALEIGH) Order Number: [id number] Reading MD: sAhvin Mac (MATERIALS AND CORROSION ENGINEER) Measurements Intervals [place]oval Rate: 112 P: 49 MT: 148 QRS: 27 QRSD: 73 T: 5 QT: 301 QTc: 412 Interpretive Statements SINUS TACHYCARDIA POSSIBLE LEFT ATRIAL ENLARGEMENT [-0.1mV P-WAVE IN V1/V2] ABNORMAL RHYTHM ECG Compared to ECG 11/15/2024 01:53:32 Sinus rhythm no longer present /store/S0/[id number]/[id number].pdf
--- NOTE | 2025-06-16 12:30 | XR_ITS ---
Examination: Complete OB ultrasound greater than 14 weeks Date and time of exam: June 16, 2025 1259 hours INDICATIONS: Chest pain beginning yesterday Findings: Viable intrauterine single fetus with single amniotic sac Viable intrauterine gestation cephalic presentation spine posterior Cardiac motion 150 BPM Placenta anterior grade 3 Umbilical cord insertion seen Amniotic fluid index 11.9 cm spine posterior Ovaries obscured by bowel gas . Composite estimated gestational age based on BPD, head circumference, abdominal circumference, femur length is 35 degrees 5 days Estimated weight 2656 g. Survey of intracranial anatomy, spinal anatomy, abdominal anatomy, four-chamber heart performed with no abnormalities identified. Impression: Viable intrauterine gestation cephalic presentation.
--- NOTE | 2025-06-16 12:31 | PD.EDRME ---
Rapid Medical Screening Exam RME Arrival date/time: 06/16/25 12:09 24-year-old female presents to the emergency department today stating she is approximate 36 weeks presents with complaints of shortness of breath and chest pain Chief Complaint: Chest Pain Vital signs: Vital Signs Temperature 98.0 F 06/16/25 12:26 Pulse Rate 117 H 06/16/25 12:26 Respiratory Rate 19 06/16/25 12:26 Blood Pressure 139/85 H 06/16/25 12:26 Pulse Oximetry (%) 98 06/16/25 12:26 Oxygen Delivery Method Room Air 06/16/25 12:26
--- NOTE | 2025-06-16 13:15 | PD.EDCHEST ---
ED Chest Pain RME/HPI General Chief Complaint: Chest Pain Stated Complaint: CP & SOB 36WKS PREG Time Seen by Provider: 06/16/25 13:15 Arrival date/time: 06/16/25 12:09 RME / HPI RME / HPI narrative: 24-year-old female patient with history of acid reflux in the past, 1 para 0 about 36 weeks , came in for evaluation regarding bilateral chest pain. Described as burning-like sensation severity moderate. Severity moderate. Onset of symptoms since last night. Patient was taking Prilosec. Denies any vaginal bleeding denies any abdominal pain denies any other complaints. Related Data Home Medications ?Medication ?Instructions ?Recorded ?Confirmed aspirin 81 mg chewable tablet 1 tab PO BID 04/15/25 05/26/25 folic acid 1 mg tablet 1 mg PO DAILY 04/15/25 05/26/25 vits no.130-ferrous fum 1 tab PO DAILY 04/15/25 05/26/25 27 mg iron-folic acid 800 mcg tablet ( Vitamin) Previous Rx's ?Medication ?Instructions ?Recorded ferrous sulfate 325 mg (65 mg 325 mg PO QDAY #60 tabs 05/06/25 iron) tablet Allergies Allergy/AdvReac Type Severity Reaction Status Date / Time No Known Allergies Allergy Verified 06/16/25 12:13 Review of Systems Review of Systems Narrative Review of Systems: Review of system reviewed and within normal limits except mentioned in HPI ED Exam Narrative Physical exam: VITAL SIGNS: Reviewed. GENERAL APPEARANCE: Alert and interactive, follows commands, no acute distress, HEAD AND FACE: Non-traumatic. ENT: PERRL, pink conjunctivitis, eyelid no trauma, Mucous membrane moist. NECK: Supple, nontender, no nuchal rigidity. CHEST: No tenderness, no crepitus, no paradoxical movement, no retractions. LUNGS: Clear, well ventilated, symmetric, no rales, no wheezing, no ronchi, no stridor, good breath sounds bilaterally. HEART: Regular rate, regular rhythm, no murmur, no gallops. ABDOMEN: Soft, positive bowel sounds, gravid abdomen, nontender,, no rebound, no masses, RECTAL: Deferred. GENITAL: Deferred. NEUROLOGICAL: Gross motor function intact sensory function intact, Appropriate for age. MUSCULOSKELETAL: low back nontender, full range of motion. EXTREMITIES: Nontender, full range of motion. SKIN: Color pink, dry, no rash, no lacerations, no abrasions, no contusions. LYMPHATICS: Deferred. Course Quality Measures none Orders Category Date Time Status EKG (ED ONLY) *Do not use* NOW Care 06/16/25 12:30 Completed EKG (ED Only) Stat Exams 06/16/25 12:30 Draft US OB >= 14 weeks Fetus Stat Exams 06/16/25 12:30 Completed B-Type Natriuretic Peptide Stat Lab 06/16/25 12:58 Completed Beta HCG,Quantitative Stat Lab 06/16/25 12:58 Completed CBC Stat Lab 06/16/25 12:58 Completed Comprehensive Metabolic Panel Stat Lab 06/16/25 12:58 Completed Mag [Magnesium] Stat Lab 06/16/25 12:58 Completed Troponin I Stat Lab 06/16/25 12:58 Completed Type and Screen Stat Lab 06/16/25 12:58 Completed UA, C/S IF [Urinalysis, C/S if Indicated] Stat Lab 06/16/25 15:34 Completed Vital Signs Vital signs: Vital Signs Temperature 98.0 F 06/16/25 12:26 Pulse Rate 117 H 06/16/25 12:26 Respiratory Rate 19 06/16/25 12:26 Blood Pressure 139/85 H 06/16/25 12:26 Pulse Oximetry (%) 98 06/16/25 12:26 Oxygen Delivery Method Room Air 06/16/25 12:26 Chest Pain MDM Narrative MDM Narrative:: 24-year-old female patient with history of acid reflux in the past, 1 para 0 about 36 weeks , came in for evaluation regarding bilateral chest pain. Described as burning-like sensation severity moderate. Severity moderate. Onset of symptoms since last night. Patient was taking Prilosec. Denies any vaginal bleeding denies any abdominal pain denies any other complaints. EKG showed sinus tachycardia, ventricular to 112 bpm, No ST segment elevation depression noted. Patient's cardiac workup today all came back unremarkable urinalysis no UTI. Ultrasound of the showed single live into uterine gestation about 36 weeks. Prior to discharge patient told me that her epigastric pain is totally gone. Patient is cleared in the emergency room, and need to go to labor and delivery also for OB clearance also. Prior to discharge home Patient data External records reviewed:: None Clinical information provided by:: patient and family Social determinants that could affect healthcare access:: none Patient has the following chronic illnesses:: None How is presenting disease/condition affected by chronic disease/condition?: no chronic disease Evaluation data The following diagnostics were reviewed and interpreted by me:: lab results, radiology exam(s) and EKG tracing(s) Lab and/or radiology exams considered but not ordered:: None Interpretation Summary: See results MDM Medications / Prescriptions Medications or Prescriptions considered but not ordered:: None Medication administrations:: None Consultations Consultation(s) initiated? (list below): No Diagnosis Chest Pain Differential Diagnosis: chest pain and other Most likely diagnosis given after review of the tests above:: Epigastric abdominal pain, , 36 weeks Admission Indicated Admission indicated?: not indicated Admission Request Was there a request for admission?: No Disposition Plan Disposition Plan: Discharge Discharge Attestation Discharge Attestation: The patient and all family members were given an opportunity to ask questions and understood the discharge instructions. Discharge instructions specifically effects, indications for sooner follow up or return to the emergency department, and the expected course of current diagnosis. Patient condition: Stable Discharge Plan Plan Patient Disposition: HOME (Self Care) Discharge Disposition comment: Stable Prescriptions/Referrals Prescriptions/Med Rec: No Action aspirin 81 mg tablet,chewable 1 tab PO BID Patient Comments: CHEW AND SWALLOW 1 TABLET BY MOUTH TWICE DAILY folic acid 1 mg tablet 1 mg PO DAILY Patient Comments: TAKE 1 TABLET BY MOUTH ONCE DAILY Vitamin 27 mg iron- 800 mcg tablet 1 tab PO DAILY Patient Comments: TAKE 1 TABLET BY MOUTH ONCE DAILY ferrous sulfate 325 mg (65 mg iron) tablet 325 mg PO QDAY Qty: 60 0RF Referrals: Paul Lou MD [Primary Care Provider] - In 1 week Problem List Clinical Impression: Epigastric abdominal pain during Patient/Caregiver Discharge Instructions Discharge Activity: activity as tolerated Education Materials: ED Epigastric Pain (Uncertain Cause) Additional Instructions: Thank you for the opportunity for serving you today. You are stable for discharged . You are advised to: Follow-up with your PCP in 1 to 2 days Return to ED for worsening of symptoms Print Language: Georgian Stand Alone Forms: Tiffanie Award Info., Work/School Release, Patient Portal Info Letter DON/SEBASTIAN Supervising Physician DON/SEBASTIAN Supervising Physician: MD Courtney
[2025-06-16 13:27] LABS: Basophils # (Auto) 0.0 Thou/mm3 (0.0-0.2); Basophils % (Auto) 0 % (0-2.5); Eosinophils # (Auto) 0.1 Thou/mm3 (0.0-0.5); Eosinophils % (Auto) 1 % (0-10); Hematocrit 34.9 % (36.0-46.0); Hemoglobin 11.6 g/dL (12.0-16.0); Immature Granulocytes Auto 0.03 Thou/mm3 (0.00-0.00); Lymphocytes # (Auto) 2.0 Thou/mm3 (1.0-4.8); Lymphocytes % (Auto) 25 % (10-50); Mean Corpuscular HGB Conc 33.2 g/dl (31.0-37.0); Mean Corpuscular Hemoglobin 28.4 pg (25.0-35.0); Mean Corpuscular Volume 86 fL (80-100); Monocytes # (Auto) 0.5 Thou/mm3 (0.0-0.8); Monocytes % (Auto) 6 % (0-12); Neutrophils # (Auto) 5.5 Thou/mm3 (1.8-7.7); Neutrophils % (Auto) 68 % (37-80); Nucleated Red Blood Cell # 0.00 Thou/mm3 (0.00-0.00); Nucleated Red Blood Cell % 0 /100 WBC (0); Platelet Count 189 Thou/mm3 (140-440); RDW Standard Deviation 45.2 fL (36.4-46.3); Red Blood Count 4.08 Miln/mm3 (4.00-5.20); White Blood Count 8.0 Thou/mm3 (3.6-11.0)
[2025-06-16 13:28] LABS: B-Type Natriuretic Peptide < 20 pg/mL (0-100)
[2025-06-16 13:40] LABS: Alanine Aminotransferase < 7 U/L (10-49); Albumin, Serum 3.7 gm/dL (3.5-5.0); Albumin/Globulin Ratio 1.4 (1.2-2.2); Alkaline Phosphatase 150 U/L (46-116); Anion Gap 11 (7-16); Aspartate Amino Transferase 13 U/L (0-34); BUN/Creatinine Ratio 8 Ratio (12-20); Beta HCG,Quantitative > 1000 mIU/mL (<5.0); Bilirubin,Total 1.0 mg/dL (0.3-1.2); Blood Urea Nitrogen < 5 mg/dL (9-23); Calcium 9.3 mg/dL (8.3-10.6); Calcium (Corrected) 9.5 mg/dL (8.5-10.1); Carbon Dioxide 20.9 mMol/L (20.0-31.0); Chloride 107 mMol/L (98-107); Creatinine (Component) 0.6 mg/dL (0.6-1.3); Estimated Creatinine Clearance 197.1 mL/min (>60); Globulin 2.6 gm/dL (2.3-3.5); Glucose 134 mg/dL (74-106); Magnesium 1.2 mg/dL (1.6-2.6); Osmolality,Calculated 276 (275-295); Potassium 4.1 mMol/L (3.4-5.1); Sodium 139 mMol/L (136-145); Total Protein 6.3 gm/dL (5.7-8.2); Troponin I < 0.020 ng/mL (0.0-0.045); eGFR > 60 See Note
[2025-06-16 15:52] LABS: Collection Type, Urine Clean Catch; RBC,Urine 0 /hpf (0-3)
[2025-06-16 16:01] VITALS: BP 134/78; PULSE 105; RESP 18; TEMP 36.9; O2SAT 97
[2025-06-16 16:16] LABS: Bacteria,Urine Rare; Bilirubin,Urine Negative (Negative); Blood,Urine Negative (Negative); Clarity,Urine Turbid (Clear/Hazy); Color,Urine Lt-Yellow (Lt Yel-Yel); Culture Indicated,Urine Not Indicated; Glucose, Urine Negative (Negative); Ketones,Urine Negative (Negative); Leukocyte Esterase,Urine Negative (Negative); Nitrite,Urine Negative (Negative); PH,Urine 8.0 (5.0-7.0); Protein,Urine Negative (Neg - Trace); Specific Gravity,Urine 1.014 (1.001-1.035); Squamous Epithelial Cell,Urine 39 /hpf (0-5); Transitional Epi Cells,Urine 1 /hpf (0-5); Urobilinogen,Urine Negative mg/dL (0.0-1.0); WBC,Urine 4 /hpf (0-5)
[2025-06-16 17:04] VITALS: PULSE 99; RESP 20; TEMP 37.1
== END 2025-06-16 17:11 | disposition home or self-care (01) ==
PROVIDERS: Nurse Practitioner Family; Nurse Practitioner Primary Care; Emergency Provider Family Medicine; PCP Family Medicine
DX: O99.891 Other specified diseases and conditions complicating pregnancy (principal); R07.9 Chest pain, unspecified; R10.13 Epigastric pain; R00.0 Tachycardia, unspecified; Z3A.36 36 weeks gestation of pregnancy
CPT/HCPCS: 36415; 76805; 80053; 81001; 83735; 83880; 84484; 84702; 85025; 86850; 86900; 86901; 93005; 99283

== ENCOUNTER 2025-06-16 17:05 | Observation (INO) | payer SELFPAY ==
[2025-06-16] VITALS (8 sets, daily range): BP systolic 119–123; BP diastolic 64–71; PULSE 107–120; RESP 18–98; TEMP 36.8; O2SAT 98–99; BMI 51.5
== END 2025-06-16 17:50 | disposition home or self-care (01) ==
PROVIDERS: Admitting Provider Obstetrics & Gynecology; Visit Provider Obstetrics & Gynecology
DX: O26.893 Other specified pregnancy related conditions, third trimester (principal); R07.9 Chest pain, unspecified; Z3A.36 36 weeks gestation of pregnancy
CPT/HCPCS: 59899

== ENCOUNTER 2025-06-18 15:45 | Observation (INO) | payer MEDICAID, SELFPAY ==
[2025-06-18] VITALS (34 sets, daily range): BP systolic 122; BP diastolic 58; PULSE 98–128; RESP 20–99; TEMP 36.6–36.7; O2SAT 93–100; BMI 50.8
[2025-06-18] MEDS: ACETAMINOPHEN 500 MG TABLET 1000 MG PO (17:10)
== END 2025-06-18 21:10 | disposition home or self-care (01) ==
PROVIDERS: Admitting Provider Specialist; Visit Provider Specialist
DX: O26.893 Other specified pregnancy related conditions, third trimester (principal); Z3A.37 37 weeks gestation of pregnancy; R10.30 Lower abdominal pain, unspecified
CPT/HCPCS: 59025; 59899; A9270

== ENCOUNTER 2025-06-27 08:14 | Outpatient (RCR) | payer MEDICAID, SELFPAY ==
--- NOTE | 2025-05-16 08:07 | XR_ITS ---
Examination: Biophysical profile, ultrasound Date and time of exam: May 16, 2025 0819 hours INDICATIONS: Diagnosis maternal obesity complicating Technique: Multiple transabdominal sonographic images of the pelvis abdomen obtained. Attention is directed to the breathing movement, gross body movement, amniotic fluid volume and tone. Findings: Amniotic fluid index 18.1 cm Total biophysical profile is 8 of 8. breathing movement is 2. Gross body movement is 2. tone is 2. Qualitative amniotic fluid volume is 2 Impression: Biophysical profile is 8 of 8.
[2025-05-16 09:00] VITALS: BP 118/75; PULSE 99; RESP 16; TEMP 36.8
--- NOTE | 2025-05-23 08:05 | XR_ITS ---
Examination: Biophysical profile, ultrasound Date and time of exam: May 23, 2025 0810 hours INDICATIONS: Maternal obesity complicating Technique: Multiple transabdominal sonographic images of the pelvis abdomen obtained. Attention is directed to the breathing movement, gross body movement, amniotic fluid volume and tone. Findings: Amniotic fluid index 14.6 cm Total biophysical profile is 8 of 8. breathing movement is 2. Gross body movement is 2. tone is 2. Qualitative amniotic fluid volume is 2 Impression: Biophysical profile is 8 of 8.
[2025-05-23 08:31] VITALS: BP 94/56; PULSE 98; RESP 16; TEMP 36.7
--- NOTE | 2025-05-30 08:10 | XR_ITS ---
Examination: Biophysical profile, ultrasound Date and time of exam: May 30, 2025 0820 hours INDICATIONS: Maternal obesity complicating Technique: Multiple transabdominal sonographic images of the pelvis abdomen obtained. Attention is directed to the breathing movement, gross body movement, amniotic fluid volume and tone. Findings: Amniotic fluid index 7.8 cm Total biophysical profile is 8 of 8. breathing movement is 2. Gross body movement is 2. tone is 2. Qualitative amniotic fluid volume is 2 Impression: Biophysical profile is 8 of 8.
[2025-05-30 09:06] VITALS: BP 108/62; PULSE 111; RESP 16; TEMP 36.8
--- NOTE | 2025-06-01 08:15 | XR_ITS ---
Examination: Biophysical profile, ultrasound Date and time of exam: June 01, 2025 0824 hours INDICATIONS: Maternal obesity complicating Technique: Multiple transabdominal sonographic images of the pelvis abdomen obtained. Attention is directed to the breathing movement, gross body movement, amniotic fluid volume and tone. Findings: Amniotic fluid index 19.1 cm Total biophysical profile is 8 of 8. breathing movement is 2. Gross body movement is 2. tone is 2. Qualitative amniotic fluid volume is 2 Impression: Biophysical profile is 8 of 8.
--- NOTE | 2025-06-13 08:23 | XR_ITS ---
Examination: Biophysical profile, ultrasound Date and time of exam: June 13, 2025 0827 hours INDICATIONS: Diagnosis maternal obesity Technique: Multiple transabdominal sonographic images of the pelvis abdomen obtained. Attention is directed to the breathing movement, gross body movement, amniotic fluid volume and tone. Findings: Amniotic fluid index 13.4 cm Total biophysical profile is 8 of 8. breathing movement is 2. Gross body movement is 2. tone is 2. Qualitative amniotic fluid volume is 2 Impression: Biophysical profile is 8 of 8.
[2025-06-13 08:59] VITALS: BP 107/51; PULSE 114; RESP 20; TEMP 36.7
--- NOTE | 2025-06-27 08:33 | XR_ITS ---
Examination: Biophysical profile, ultrasound Date and time of exam: June 27, 2025 0842 hours INDICATIONS: Diagnosis maternal obesity Technique: Multiple transabdominal sonographic images of the pelvis abdomen obtained. Attention is directed to the breathing movement, gross body movement, amniotic fluid volume and tone. Findings: Amniotic fluid index 7.7 cm Total biophysical profile is 8 of 8. breathing movement is 2. Gross body movement is 2. tone is 2. Qualitative amniotic fluid volume is 2 Impression: Biophysical profile is 8 of 8.
[2025-06-27 09:02] VITALS: BP 119/59; PULSE 116; RESP 16; TEMP 36.8
== END 2025-06-27 23:59 | disposition home or self-care (01) ==
LOC: S4S1 08:14
PROVIDERS: Referring Provider Nurse Practitioner Women's Health; Visit Provider Nurse Practitioner Women's Health
DX: O99.213 Obesity complicating pregnancy, third trimester (principal); E66.9 Obesity, unspecified; Z3A.38 38 weeks gestation of pregnancy
CPT/HCPCS: 59025; 76819

== ENCOUNTER 2025-06-29 03:36 | Observation (INO) | payer MEDICAID, SELFPAY ==
[2025-06-29] VITALS (12 sets, daily range): BP systolic 124; BP diastolic 70; PULSE 105–117; RESP 16–96; TEMP 36.9; O2SAT 96–99; BMI 51.9
== END 2025-06-29 04:45 | disposition home or self-care (01) ==
PROVIDERS: Admitting Provider Obstetrics & Gynecology; Visit Provider Obstetrics & Gynecology
DX: O36.8130 Decreased fetal movements, third trimester, not applicable or unspecified (principal); Z3A.38 38 weeks gestation of pregnancy
CPT/HCPCS: 59025; 59899

== ENCOUNTER 2025-07-02 07:45 | Inpatient (IN) | payer MEDICAID, SELFPAY ==
[2025-07-02] VITALS (60 sets, daily range): BP systolic 121–198; BP diastolic 66–101; PULSE 22–122; RESP 18–20; TEMP 36.8–37.1; O2SAT 89–100; BMI 52.3
[2025-07-02 10:07] LABS: Basophils # (Auto) 0.0 Thou/mm3 (0.0-0.2); Basophils % (Auto) 0 % (0-2.5); Eosinophils # (Auto) 0.1 Thou/mm3 (0.0-0.5); Eosinophils % (Auto) 1 % (0-10); Hematocrit 33.0 % (36.0-46.0); Hemoglobin 11.3 g/dL (12.0-16.0); Immature Granulocytes Auto 0.05 Thou/mm3 (0.00-0.00); Lymphocytes # (Auto) 2.2 Thou/mm3 (1.0-4.8); Lymphocytes % (Auto) 24 % (10-50); Mean Corpuscular HGB Conc 34.2 g/dl (31.0-37.0); Mean Corpuscular Hemoglobin 29.5 pg (25.0-35.0); Mean Corpuscular Volume 86 fL (80-100); Monocytes # (Auto) 0.4 Thou/mm3 (0.0-0.8); Monocytes % (Auto) 5 % (0-12); Neutrophils # (Auto) 6.2 Thou/mm3 (1.8-7.7); Neutrophils % (Auto) 69 % (37-80); Nucleated Red Blood Cell # 0.00 Thou/mm3 (0.00-0.00); Nucleated Red Blood Cell % 0 /100 WBC (0); Platelet Count 196 Thou/mm3 (140-440); RDW Standard Deviation 44.1 fL (36.4-46.3); Red Blood Count 3.83 Miln/mm3 (4.00-5.20); White Blood Count 9.0 Thou/mm3 (3.6-11.0)
[2025-07-02 11:01] LABS: Syphilis Nonreactive (Nonreactive)
--- NOTE | 2025-07-02 11:36 | PD.LDHP ---
Documentation for date of: 07/02/25 OB Labor/Induct. HPI History of Present Illness Chief complaint: scheduled IOL : 1 Para: 0 Term pregnancies: 0 pregnancies: 0 Living children: 0 History of Abortions: Spontaneous and Elective: 0 History of Vaginal deliveries: 0 History of sections: No History of : No Date of last menstrual period: 10/02/24 SHA: 07/09/25 Gestational Age (weeks): 39 Gestational Age (days): 0 Gestational age based on last menstrual period: 39 Indication for induction: medical complication (obesity, current BMI 52.3) History of present illness: Patient presents for scheduled induction of labor. Indication: BMI 52.3. No regular/painful ctx. No LOF. No vaginal bleeding. Normal movement. History of Present Dating criteria: LMP confirmed by 1st trimester US Adequate Care: Yes Abnormal ultrasound findings: Growth scan 05/31 with [facility]: 91%ile 6lb6oz (AC 99%ile) Growth scan 06/16 at [facility]: 2656g (21%ile) Dilated bowel noted on ultrasound, but anal dimple seen so no further follow up recommended Normal echo Narrative: [facility] with [facility] Current BMI 52.3. ASA 81mg QD. HgbA1c 5.2, normal glucola. Palpitations- unable to complete holter monitor 2/2 adhesive reaction. Patient states she hasn't been able to establish with cardiology since coming to [place] from [place]. Family hx of VSD, normal echo Rubella non-immune GBS positive Labs Maternal Blood Type: B Pos Labs: Positive: Group Beta Strep and Negative: RPR, Hepatitis B, Rubella Titre, HIV, Chlamydia and Gonorrhea Review of Systems Review of Systems Narrative Review of Systems: Review of Systems Systems Reviewed: All systems reviewed, normal except as documented Constitutional Constitutional: Denies body ache(s), Denies chills, Denies fever(s) and Denies headache(s) ENT Ears, Nose, Mouth, and Throat: Denies headache(s) and Denies vertigo Cardiovascular Cardiovascular: Denies chest pain, Denies palpitations, Denies dyspnea and Denies syncope Respiratory Respiratory: Denies cough, Denies dyspnea Gastrointestinal Gastrointestinal: Denies nausea and Denies vomiting Neurologic Neurologic: Denies convulsions, Denies headache(s), Denies other visual disturbances, Denies syncope and Denies vertigo Past Medical History Family History OTHER FAMILY HX: Hx of VSD Surgical History SURGICAL: Negative Section Social History SOCIAL: No tobacco/ETOH/illicit drug use. Supportive partner. Past Medical History Comments PMH COMMENT: Current BMI 52.3 Palpitations- unable to complete holter monitor 2/2 adhesive reaction Meds Home Medications and Allergies Home Medications ?Medication ?Instructions ?Recorded ?Confirmed ?Type aspirin 81 mg chewable tablet 1 tab PO BID 04/15/25 06/18/25 History folic acid 1 mg tablet 1 mg PO DAILY 04/15/25 06/18/25 History vits no.130-ferrous fum 1 tab PO DAILY 04/15/25 06/18/25 History 27 mg iron-folic acid 800 mcg tablet ( Vitamin) Allergies Allergy/AdvReac Type Severity Reaction Status Date / Time No Known Allergies Allergy Verified 06/18/25 16:06 OB Exam Physical Exam Vital signs: Temp Pulse Resp BP Pulse Ox O2 Del Method 98.6 F 114 H 20 129/70 99 Room Air 07/02/25 08:24 07/02/25 08:24 07/02/25 08:24 07/02/25 08:24 07/02/25 11:33 07/02/25 08:24 Narrative: General: well developed, well nourished, no acute distress, conversant Cardiac: normal heart rate Lungs: breathing without distress Abdomen: soft, gravid, obese, non-tender, no rebound or guarding Extremities: trace edema BLE Detailed Labor and Delivery Exam Dilation (cm): closed Effacement (%): thick Cervix position: posterior station: -4 Consistency: firm Membranes: intact monitor accelerations: 15x15 monitor decelerations: None terminal computer operator variability: Moderate (11-25) Contraction frequency (min): no ctx pattern OB Results Labs 07/02/25 08:45 Labs: Short CBC 07/02/25 Range/Units 08:45 WBC 9.0 (3.6-11.0) Thou/mm3 Hgb 11.3 L (12.0-16.0) g/dL Hct 33.0 L (36.0-46.0) % Plt Count 196 (140-440) Thou/mm3 OB Assessment & Plan Assessment and Plan (1) Encounter for induction of labor: Status: Acute Assessment and plan: Rosmery is a 24yo with SIUP at 39&0wk presenting for scheduled IOL. SCE: closed/thick/high. Vitals wnl, benign exam. Reassuring assessment. PMhx/ significant for: P[facility] with [facility] Current BMI 52.3. ASA 81mg QD. HgbA1c 5.2, normal glucola. Palpitations- unable to complete holter monitor 2/2 adhesive reaction. Patient states she hasn't been able to establish with cardiology since coming to [place] from [place]. Family hx of VSD, normal echo Rubella non-immune GBS positive Plan: -Admit to L&D -Establish IV, routine labs -CEFM -Regular diet then [id number] -Fortune Teller/consent re: -GBS status: positive. Ampicillin per protocol. -Will initiate IOL with cervidil -Anticipate -Safe to proceed (2) Obesity affecting in third trimester: Status: Acute (3) Positive GBS test: Status: Acute (4) Rubella non-immune status, antepartum: Status: Acute (2) Obesity affecting in third trimester Qualifiers: Obesity type affecting : severe obesity due to excess calories Qualified Code(s): O99.213 - Obesity complicating , third trimester; E66.01 - Morbid (severe) obesity due to excess calories
--- NOTE | 2025-07-02 12:17 | XR_ITS ---
Examination: Complete OB ultrasound greater than 14 weeks Date and time of exam: July 02, 2025 1247 hours INDICATIONS: Supervision of otherwise normal , unknown size and dates Findings: Viable intrauterine single fetus with single amniotic sac presentation cephalic Cardiac motion 123 BPM Placenta fundal anterior grade 3 Umbilical cord insertion seen Amniotic fluid index 6.1 cm spine maternal right Cervix 3.5 cm Right ovary obscured by bowel gas Left ovary 5.7 cm arterial flow. Composite estimated gestational age based on BPD, head circumference, abdominal circumference, femur length is 39 weeks 5 days Estimated weight 3848.5 g. Survey of intracranial anatomy, spinal anatomy, abdominal anatomy, four-chamber heart performed with no abnormalities identified. Impression: Viable intrauterine gestation cephalic presentation Estimated gestational age 39 weeks 5 days Estimated weight 3848.5 g Prominent left ovary, advise follow-up.
--- NOTE | 2025-07-02 14:32 | PD.LDPN ---
Documentation for date of: 07/02/25 OB Labor Progress Note Pelvic Exam Dilation (cm): closed Effacement (%): 25 station: -4 Amniotic membrane status: Intact Contractions Monitor mode: External Contraction frequency: irregular Contraction intensity: Mild Status status: Category l Assessment and Plan Comments: Intrapartum Note Patient was feeling vaginal burning. Exam revealed that the cervidil was very low in the vagina, so it was removed. BP wnl, mild tachycardia, afebrile Cat I FHRT No ctx pattern SCE: closed//-4. Cytotec 25mcg PV placed. Will continue with cytotec PV Q4hr until able to place cervical roblero balloon Continue to closely monitor Safe to proceed Heather Casas MD
--- NOTE | 2025-07-02 21:56 | PD.LDPN ---
Documentation for date of: 07/02/25 OB Labor Progress Note Pelvic Exam Dilation (cm): 1 Effacement (%): 0 station: -3 Amniotic membrane status: Intact Contractions Monitor mode: External Contraction frequency: 3-4 Contraction intensity: Mild Status status: Category l Assessment and Plan Comments: Intrapartum Note Patient has received 2 doses of PV cytotec so far. Comfortable. Normotensive, mild tachycardia, afebrile Cat I FHRT SCE: 1/very thick/high. Gamez cervical balloon placed with 50cc NS in the uterine balloon only. Will continue cytotec 25mcg PV Q4hr Will continue to closely observe Gamez bulb taped to leg for traction Safe to proceed Heather Casas MD
[2025-07-02] MEDS: fentaNYL CIT INJ 50 mCg/ML AMP 2ML 100 MCG IVP (22:07)
[2025-07-03] VITALS (370 sets, daily range): BP systolic 118–171; BP diastolic 60–101; PULSE 76–128; RESP 18–19; TEMP 36.4–37.3; O2SAT 80–100
[2025-07-03] MEDS: fentaNYL CIT INJ 50 mCg/ML AMP 2ML 100 MCG IVP (00:15)
[2025-07-03] MEDS: RINGERS LACTATED 1000 ML 1,000 ML 100 ML IV ×3 (02:10→15:38)
--- NOTE | 2025-07-03 10:21 | PD.LDPN ---
Documentation for date of: 07/03/25 OB Labor Progress Note Pelvic Exam Dilation (cm): 4 Effacement (%): 80 station: -2 Amniotic membrane status: Ruptured (AROM, clear) Contractions Monitor mode: External Contraction frequency: 1-4 Contraction pattern: Coupling Contraction intensity: Mild Status status: Category l Assessment and Plan Comments: Intrapartum Note Patient has epidural in place, some mild low back discomfort. Normotensive, mild tachycardia, afebrile Gamez bulb was in the vagina, easily pulled out. SCE: 4/80/-2. AROM performed with clear fluid noted. Plan to initiate IV pitocin and titrate per protocol. Ampicillin per protocol CEFM Safe to proceed Heather Casas MD
[2025-07-03] MEDS: Ampicillin Inj 2,000 MG in SODIUM CHLORIDE 0.9% (POP) 100 ML 100 MG IV (10:50)
[2025-07-03] MEDS: OXYTOCIN in NS 30 units 30 UNIT/500 ML BAG IV (12:01)
[2025-07-03] MEDS: Ampicillin Inj 1,000 MG in SODIUM CHLORIDE 0.9% (Popper) 50 ML 50 MG IV ×2 (14:50→19:08)
--- NOTE | 2025-07-03 21:59 | ESPR_ITS ---
Documentation for date of: 07/03/25 OB Labor Progress Note Pelvic Exam Dilation (cm): 5 Effacement (%): 80 station: -2 Amniotic membrane status: Ruptured Contractions Monitor mode: Internal Contraction frequency: 2-3 Contraction pattern: Coupling Contraction intensity: Moderate Status status: Category l Assessment and Plan Comments: Decision for section SCE is unchanged from my exam this morning when I performed AROM. Arrest of dilation is diagnosed. I discussed with patient and her partner the diagnosis and recommendation for section and they are amenable. -Counseled/consented re: section. Discussed all r/b/a to include: bleeding (possible need for blood transfusion), infection (subcutaneous, deeper layers or uterine with possible need for prolonged admission or re-admission for IV antibiotics, I&D with wound packing, etc), injury to nearby structures such as bladder, bowel, ureters, blood vessels, nerves with possible need for re- operation, pain, injury to baby, hysterectomy, DVT/PE, . Answered all questions to patient and their support person's satisfaction. -IV abx ppx: ancef 3g IV x1 and azithromycin 500mg IV x1 -Nursing and anesthesia team aware of plan for section. Will proceed to OR when team is ready Heather Casas MD
[2025-07-04] VITALS (31 sets, daily range): BP systolic 98–155; BP diastolic 55–96; PULSE 90–122; RESP 16–22; TEMP 36–37; O2SAT 96–127
[2025-07-04] MEDS: Ampicillin Inj 1,000 MG in SODIUM CHLORIDE 0.9% (Popper) 50 ML 50 MG IV (00:13)
[2025-07-04] MEDS: RINGERS LACTATED 1000 ML 1,000 ML 100 ML IV (00:15)
[2025-07-04] MEDS: ceFAZolin/D5W 1 GM IVPB 1 GM/50 ML BAG IV (01:40)
[2025-07-04] MEDS: ceFAZolin/D5W 2 GM IV 2 GM/100 ML BAG IV (01:50)
--- NOTE | 2025-07-04 02:49 | PD.GYNPROC ---
Operative Note - DEVELOPMENT SYSTEM EFFICIENCY MANAGER Procedure Date of procedure: 07/04/25 Procedure Performed: Primary Low Transverse Section Indication: Rosmery is a 24yo with SIUP at 39w2d undergoing IOL for maternal obesity, BMI 52.3. Pre-Op diagnosis: SIUP at 39w2d Arrest of dilation BMI 52.3 GBS positive Post-Op diagnosis: SIUP at 39w2d Arrest of dilation BMI 52.3 GBS positive Anesthesia type: General (epidural not fully effective so General with LMA administered) Fluids: crystalloid Fluid amount (mL): 1,100 Urine output (mL): 75 Specimen: other (placenta and cord not sent to path) Estimated blood loss (ml): 850 Findings: Female in OT presentation. Apgars 7/8. Weight 3840g. TOB 01:45. Normal appearing uterus and fallopian tubes, polycystic appearing ovaries. Complications: none Narrative: After obtaining informed consent, the patient was taken to the operating room. There was reassuring heart rate tracing prior. Epidural was in place. A roblero catheter was in place. Bilateral sequential compression devices were placed. She was then prepped and draped in the normal sterile fashion in the dorsal supine position with left lateral tilt. A timeout was performed to confirm patient name, date of , procedure and indication. The team was in agreement. Spinal anesthesia was found to be adequate using an Allis clamp. Anceph 3g IV x1 and Azithromycin 500mg IV x1 were given for prophylaxis. A Pfannenstiel skin incision was then made with the scalpel and carried through to the underlying layer of fascia. The fascia was incised in the midine and the incision was extended laterally with the Manuel scissors. The superior and inferior aspects of the fascial incision were then grasped with the Elisha clamps, elevated and the underlying rectus muscles were dissected off bluntly and sharply. The peritoneum was entered digitally and the rectus muscles were then in the midline. At this point, the patient began feeling pain and thus was given general anesthesia and LMA placed. The peritoneal incision was then extended superiorly and inferiorly with good visualization of the bladder. An Dane retractor was placed and the vesicouterine peritoneum was then identified, grasped with the pickups, and entered sharply with the Metzenbaum scissors. The incision was extended laterally and the bladder flap created digitally. The lower uterine segment was scored in a transverse fashion with the scalpel. The uterus was then entered bluntly and the incision was extended with traction with clear amniotic fluid noted. The 's head was elevated to the level of the incision. Fundal pressure was applied, but head could not quite be delivered, so a mightyvac was placed at the flexion point of the head and suction pumped to the green zone. One pull was performed with no pop offs and the head then delivered atraumatically in the OT position. The anterior shoulder, posterior shoulder and corpus were delivered without difficulty. The nose and mouth were suctioned with bulb suction and cord was clamped x2 and cut. Infant was vigorous. The infant was handed off to the awaiting nursing team. Cord blood obtained for typing. The placenta was then removed with uterine massage and cord traction. The uterus was exteriorized and cleared of all clot and debris. The uterine incision was repaired with 0-vicryl suture in a running locking fashion. A second layer of O-monocryl was used to closed the hysterotomy incision in an imbricating fashion. The uterine incision was inspected and hemostasis was noted. In addition to standard IV pitocin, patient received TXA 1g IV x1 and methergine 0.2mg IM x1 with good tone achieved. The posterior cul-de-sac was suctioned and the uterus returned to the abdomen. The gutters were cleared of all clot. Dane retractor was removed. The peritoneum was closed using a 3-0 vicryl suture in running fashion. The rectus muscles were inspected and small areas of oozing were cauterized. The fascia was reapproximated with 0-Vicryl suture in a running fashion. The subcutaneous tissue was then irrigated. Pippa's fascia was reapproximated using 3-0 vicryl suture in a running fashion in 2 layers. Skin was reapproximated with 4-0 monocryl suture in running subcuticular fashion. The incision was cleaned with a wet lap and dried with a dry lap. Jgojgrexg-rpukccpupqh-tcon bandage was applied overlying the incision and activated according to ocean export account manager instructions. Fundus was firm at the umbilicus. Sponge, lap and needle counts were correct x2. Cytotec 800mcg MI was placed for continued prophylaxis against bleeding. The procedure was without complications and the patient tolerated the procedure well. She was taken to recover further on Labor and Delivery, in stable condition. Diagnosis Discharge Diagnosis (1) Arrest of dilation, delivered, current hospitalization: Status: Acute (2) Delivery by section: Status: Acute (3) Obesity affecting in third trimester: Status: Acute (4) Positive GBS test: Status: Acute Problem List Completed Was Problem List Reviewed/Reconciled?: Yes (3) Obesity affecting in third trimester Qualifiers: Obesity type affecting : severe obesity due to excess calories Qualified Code(s): O99.213 - Obesity complicating , third trimester; E66.01 - Morbid (severe) obesity due to excess calories
[2025-07-04] MEDS: OXYTOCIN in NS 20 units 20 UNIT/1,000 ML BAG 125 UNIT IV ×2 (05:36→05:38)
[2025-07-04] MEDS: ACETAMINOPHEN IVPB 1,000 MG/100 ML VIAL 250 MG IV (07:41)
[2025-07-04 10:36] LABS: Basophils # (Auto) 0.0 Thou/mm3 (0.0-0.2); Basophils % (Auto) 0 % (0-2.5); Eosinophils # (Auto) 0.0 Thou/mm3 (0.0-0.5); Eosinophils % (Auto) 0 % (0-10); Hematocrit 30.3 % (36.0-46.0); Hemoglobin 10.2 g/dL (12.0-16.0); Immature Granulocytes Auto 0.05 Thou/mm3 (0.00-0.00); Lymphocytes # (Auto) 2.3 Thou/mm3 (1.0-4.8); Lymphocytes % (Auto) 17 % (10-50); Mean Corpuscular HGB Conc 33.7 g/dl (31.0-37.0); Mean Corpuscular Hemoglobin 28.4 pg (25.0-35.0); Mean Corpuscular Volume 84 fL (80-100); Monocytes # (Auto) 0.8 Thou/mm3 (0.0-0.8); Monocytes % (Auto) 5 % (0-12); Neutrophils # (Auto) 10.9 Thou/mm3 (1.8-7.7); Neutrophils % (Auto) 77 % (37-80); Nucleated Red Blood Cell # 0.00 Thou/mm3 (0.00-0.00); Nucleated Red Blood Cell % 0 /100 WBC (0); Platelet Count 188 Thou/mm3 (140-440); RDW Standard Deviation 44.3 fL (36.4-46.3); Red Blood Count 3.59 Miln/mm3 (4.00-5.20); White Blood Count 14.1 Thou/mm3 (3.6-11.0)
--- NOTE | 2025-07-04 11:26 | PC.SS ---
PSYCHOMETRIST and student conducted bedside contact with the patient to address nursing referral indicating patient possessed history of anxiety/depression.? PSYCHOMETRIST and student introduced self and role.? At bedside with patient was JEY, Greg Ferrari. ?Patient gave permission for FOB to be present during discussion.? Patient confirmed past history of depression and Anxiety as adolescent.? Patient stated no current position of either Anxiety or Depression. FOB confirmed no concerns with patient?s current emotional status.? Patient is not prescribed medication to address anxiety or depression. Jena is the patient?s first child.? Infant delivered .? Patient interacting appropriate with .? OB services provided by Dr. Burgess.? Patient reports compliance with OB appointments.? Patient plans on combo feeding the infant Patient is aligned with WIC, SNAP. Patient is not receiving TANF.? Patient denies history of alcohol/drug abuse.? Patient denies episodes of domestic violence.? Patient has access to appropriate supplies and equipment.? FOB will provide transportation upon discharge.? Patient describes possessing support system consisting of FOB and extended family.? PSYCHOMETRIST and student provided community resources to include [employer] and [employer].? No further intervention required at this time, dialysis social worker will be available to address any further concerns.? PSYCHOMETRIST updated bedside nurse.?
[2025-07-04] MEDS: KETOROLAC INJ 30 MG/ML VIAL IVP ×2 (11:50→18:03)
[2025-07-04] MEDS: DOCUSATE SOD 100 MG CAPSULE PO ×2 (11:50→21:25)
[2025-07-04] MEDS: ENOXAPARIN SOD INJ 40 MG/0.4 ML SYRINGE SC (14:13)
--- NOTE | 2025-07-04 20:03 | EKG_ITS ---
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
--- NOTE | 2025-07-04 20:04 | XR_ITS ---
Examination: AP chest single view TECHNIQUE: AP portable upright chest single view Date and time: July 04, 2025, 2041 hours INDICATIONS: Maternal sepsis alert protocol FINDINGS: Mild prominence left ventricle. No lobar pneumonia or pulmonary edema. The osseous structures are intact IMPRESSION: No pneumonia identified
--- NOTE | 2025-07-04 20:26 | EVENTNT_ITS ---
Documentation for date of: 07/04/25 Event Note Event Note: Rapid Response called for abdominal pain that radiates up to chest pain in the setting of pulse 100's, RR 20. Afebrile. Normotensive. I ordered EKG over the phone, and I came to bedside. EKG read: ATRIAL FLUTTER/TACHYCARDIA WITH RAPID VENTRICULAR RESPONSE NONSPECIFIC T-WAVE ABNORMALITY ABNORMAL RHYTHM ECG Notably patient has hx of palpitations that she attempted workup for in [place] a few years ago with Holter monitor, but didn't complete the Holter monitor due to skin reaction. She states she had an echo in the past that showed enlarged heart. She was instructed to establish with cardiology during her , but she was never able to due to transportation issues. At bedside, patient is sitting up, breathing comfortably. She notes she has incisional pain and pain to the sides of the incision. Last received toradol 2 hours ago, hasn't had norco yet. She does not endorse chest pain or shortness of breath, but rather palpitations ( racing heart ) that is similar to what she has had in the past. Abdomen is soft, no rebound/guarding, incision has prineo overlying and is clean/dry/intact. I ordered troponin x2, BNP, BMP (for creatinine in the event that CTPA is warranted in the future). Her Hgb after surgery this morning was 10.2. CXR is being done as part of Maternal Sepsis Protocol (though again, patient is afebrile) I requested for norco to be given to treat patient's abdominal pain. I requested for IM Hospitalist consult regarding the abnormal EKG finding and appreciate their recommendations. Workup ongoing. Heather Casas MD
--- NOTE | 2025-07-04 20:29 | EKG_ITS ---
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
[2025-07-04] MEDS: HYDROcodone/APAP 5/325 TABLET 2 TAB PO (20:31)
[2025-07-04 20:37] LABS: Lactate (Lactic Acid) 1.4 mMol/L (0.4-2.0)
[2025-07-04 20:39] LABS: Basophils # (Auto) 0.0 Thou/mm3 (0.0-0.2); Basophils % (Auto) 0 % (0-2.5); Eosinophils # (Auto) 0.1 Thou/mm3 (0.0-0.5); Eosinophils % (Auto) 1 % (0-10); Hematocrit 26.3 % (36.0-46.0); Hemoglobin 8.9 g/dL (12.0-16.0); Immature Granulocytes Auto 0.07 Thou/mm3 (0.00-0.00); Lymphocytes # (Auto) 3.0 Thou/mm3 (1.0-4.8); Lymphocytes % (Auto) 22 % (10-50); Mean Corpuscular HGB Conc 33.8 g/dl (31.0-37.0); Mean Corpuscular Hemoglobin 28.9 pg (25.0-35.0); Mean Corpuscular Volume 85 fL (80-100); Monocytes # (Auto) 0.8 Thou/mm3 (0.0-0.8); Monocytes % (Auto) 5 % (0-12); Neutrophils # (Auto) 10.0 Thou/mm3 (1.8-7.7); Neutrophils % (Auto) 72 % (37-80); Nucleated Red Blood Cell # 0.00 Thou/mm3 (0.00-0.00); Nucleated Red Blood Cell % 0 /100 WBC (0); Platelet Count 189 Thou/mm3 (140-440); RDW Standard Deviation 44.9 fL (36.4-46.3); Red Blood Count 3.08 Miln/mm3 (4.00-5.20); White Blood Count 13.9 Thou/mm3 (3.6-11.0)
[2025-07-04 20:56] LABS: B-Type Natriuretic Peptide 22 pg/mL (0-100)
[2025-07-04 20:58] LABS: Alanine Aminotransferase < 7 U/L (10-49); Albumin, Serum 3.0 gm/dL (3.5-5.0); Albumin/Globulin Ratio 1.5 (1.2-2.2); Alkaline Phosphatase 134 U/L (46-116); Anion Gap 11 (7-16); Aspartate Amino Transferase 19 U/L (0-34); BUN/Creatinine Ratio 7 Ratio (12-20); Bilirubin,Total 0.5 mg/dL (0.3-1.2); Blood Urea Nitrogen < 5 mg/dL (9-23); Calcium 9.1 mg/dL (8.3-10.6); Calcium (Corrected) 9.9 mg/dL (8.5-10.1); Carbon Dioxide 22.5 mMol/L (20.0-31.0); Chloride 107 mMol/L (98-107); Creatinine (Component) 0.7 mg/dL (0.6-1.3); Estimated Creatinine Clearance 160.3 mL/min (>60); Globulin 2.0 gm/dL (2.3-3.5); Glucose 101 mg/dL (74-106); Osmolality,Calculated 276 (275-295); Potassium 3.9 mMol/L (3.4-5.1); Sodium 140 mMol/L (136-145); Total Protein 5.0 gm/dL (5.7-8.2); Troponin I < 0.020 ng/mL (0.0-0.045); eGFR > 60 See Note
--- NOTE | 2025-07-04 20:59 | PD.RESCONSUL ---
HPI Data of Consult Requesting Physician: Heather Casas MD Admitting Provider: Heather Casas MD Attending Provider: Dr. Cummings Primary Care Provider: Physician No Primary/Family Consult Narrative Reason for consult: Abnormal EKG (sinus tachycardia) in patient History of present illness: Patient is a 24-year-old with history of palpitations and obesity (BMI 52.3) who underwent primary LTCS earlier today for arrest of dilation. Rapid Response was called for complaint of abdominal pain radiating to chest with tachycardia (HR 100s) and RR 20. Patient was afebrile and normotensive. At bedside, patient reported incisional abdominal pain, similar to post-op pain, and palpitations described as ?racing heart? consistent with prior episodes. She denied acute chest pain, pressure, shortness of breath, dizziness, or syncope. Notably, she had a prior incomplete cardiac workup in [place] (Holter monitor discontinued due to adhesive reaction, prior echo reportedly showed ?enlarged heart?). She was instructed to follow with cardiology in but was unable to due to transportation barriers. ROS: Cardiovascular: Positive palpitations, denies chest pain, syncope, or edema Respiratory: Denies dyspnea or cough GI: Incisional abdominal pain, no N/V Constitutional: No fever, chills Pertinent Data: EKG: Sinus tachycardia (initially machine read as atrial flutter with RVR, but reviewed and confirmed sinus tachycardia). Hgb post-op: 10.2 cc:: cc: Heather Casas MD Exam Vital Signs Temp Pulse Resp BP Pulse Ox O2 Del Method 98.3 F 112 H 20 118/61 98 Room Air 07/04/25 15:24 07/04/25 15:24 07/04/25 15:24 07/04/25 15:24 07/04/25 15:24 07/04/25 15:24 Narrative Exam General: Sitting upright, breathing comfortably Vitals: Afebrile, normotensive, HR 100s, RR 20, sat stable CV: Sinus tachycardia, regular rhythm, no murmurs documented Pulm: Breathing unlabored Abdomen: Soft, nondistended, no rebound/guarding. Incision with prineo intact, C/D/I Results Labs 07/04/25 20:24 07/04/25 20:24 Labs: Short CBC 07/04/25 07/04/25 Range/Units 10:24 20:24 WBC 14.1 H D 13.9 H (3.6-11.0) Thou/mm3 Hgb 10.2 L 8.9 L (12.0-16.0) g/dL Hct 30.3 L 26.3 L (36.0-46.0) % Plt Count 188 189 (140-440) Thou/mm3 BMP 07/04/25 20:24 Sodium 140 Potassium 3.9 Chloride 107 Carbon Dioxide 22.5 BUN < 5 L Creatinine 0.7 Glucose 101 Calcium 9.1 Cardiac Enzymes 07/04/25 Range/Units 20:24 Troponin I < 0.020 (0.0-0.045) ng/mL Liver Function 07/04/25 Range/Units 20:24 Total Bilirubin 0.5 (0.3-1.2) mg/dL AST 19 (0-34) U/L ALT < 7 L (10-49) U/L Alkaline Phosphatase 134 H (46-116) U/L Albumin 3.0 L (3.5-5.0) gm/dL Quality Measures Quality Measures VTE prophylaxis Medications Home Medications and Allergies Home Medications ?Medication ?Instructions ?Recorded ?Confirmed ?Type folic acid 1 mg tablet 1 mg PO DAILY 04/15/25 06/18/25 History vits no.130-ferrous fum 1 tab PO DAILY 04/15/25 06/18/25 History 27 mg iron-folic acid 800 mcg tablet ( Vitamin) Allergies Allergy/AdvReac Type Severity Reaction Status Date / Time No Known Allergies Allergy Verified 07/03/25 18:53 Visit Medications Hydrocodone Bitart/Acetaminophen (Hydrocodone/Apap 5/325 Tablet) 1 tab PO Q4HR PRN PRN Reason: Patient rated pain 7 to 8 Stop: 07/09/25 02:33 Hydrocodone Bitart/Acetaminophen (Hydrocodone/Apap 5/325 Tablet) 2 tab PO Q6HR PRN PRN Reason: Patient rated pain 9 to 10 Stop: 07/09/25 02:33 Last Admin: 07/04/25 20:31 Dose: 2 tab Diphenhydramine HCl (Diphenhydramine Inj 50 Mg/Ml Vial) 12.5 mg IVP Q2H PRN PRN Reason: ITCHING Docusate Sodium (Docusate Sod 100 Mg Capsule) 100 mg PO BID JUN Stop: 08/03/25 08:59 Last Admin: 07/04/25 11:50 Dose: 100 mg Enoxaparin Sodium (Enoxaparin Sod Inj 40 Mg/0.4 Ml Syringe) 40 mg SC Q12H [facility] Stop: 07/19/25 01:59 Tranexamic Acid (Tranexamic Acid Ivpb) 1,000 mg in 100 mls @ 200 mls/hr IV [id number] PRN PRN Reason: BLEEDING Acetaminophen (Ofirmev Inj) 1,000 mg in 100 mls @ 250 mls/hr IV Q6H PRN PRN Reason: PAIN SCALE 1-3 (mild Last Admin: 07/04/25 07:41 Dose: 250 mls/hr Ibuprofen (Ibuprofen Tab 400 Mg Tablet) 800 mg PO Q8HR [facility] Stop: 08/04/25 05:59 Ketorolac Tromethamine (Ketorolac Inj 30 Mg/Ml Vial) 30 mg IVP Q6HR [facility] Stop: 07/05/25 00:01 Last Admin: 07/04/25 18:03 Dose: 30 mg Magnesium Hydroxide (Milk Of Magnesia Susp 30 Ml Udc) 30 ml PO [id number] PRN PRN Reason: CONSTIPATION Stop: 08/03/25 02:33 Measles/Mumps/Rubella Vaccine Live (Measles, Mumps & Rubella Vacc 0.5 Ml Vial) 0.5 ml SCi X1 PRN PRN Reason: if non-immune or equivocal Methylergonovine Maleate (Methylergonovine Inj 0.2 Mg/Ml Vial) 0.2 mg IM X1 PRN PRN Reason: Excessive Bleeding Methylergonovine Maleate (Methylergonovine Inj 0.2 Mg/Ml Vial) 0.2 mg IM Q6HR PRN PRN Reason: Excessive bleeding Stop: 07/11/25 02:33 Methylergonovine Maleate (Methylergonovine 0.2 Mg Tablet) 0.2 mg PO Q6HR PRN PRN Reason: Excessive bleeding Stop: 07/11/25 02:33 Ondansetron HCl (Ondansetron Inj 2 Mg/Ml Inj 2 Ml) 4 mg IVP Q6HR PRN; Protocol PRN Reason: NAUSEA OR VOMITING Stop: 08/03/25 02:25 Simethicone (Simethicone 80 Mg Chew) 80 mg PO Q4HR PRN PRN Reason: GAS Stop: 08/03/25 02:33 Discontinued Medications Benzocaine (Benzo/Lano/Aloe (Dermoplast) 60 Gm Can) 1 spray TOP PRN PRN PRN Reason: PERINEAL DISCOMFORT Stop: 08/01/25 08:48 Dinoprostone (Dinoprostone 10 Mg Vag.Supp) 10 mg VAGINAL X1 ONE Stop: 07/02/25 08:54 Last Admin: 07/02/25 09:12 Dose: 10 mg Diphtheria/Tetanus/Acell Pertussis (Diphth,Pertuss(Acell),Tet Vac 0.5 Ml Syr- Adult) 0.5 ml IMi X1 PRN PRN Reason: SEE COMMENTS Enoxaparin Sodium (Enoxaparin Sod Inj 40 Mg/0.4 Ml Syringe) 40 mg SC BID [facility] Stop: 07/18/25 13:59 Last Admin: 07/04/25 14:13 Dose: 40 mg Fentanyl Citrate (Fentanyl Cit Inj 50 Mcg/Ml Amp 2ml) 50 mcg IVP Q1HR PRN PRN Reason: PAIN SCALE 4-6 (Moderate Stop: 07/07/25 08:48 Fentanyl Citrate (Fentanyl Cit Inj 50 Mcg/Ml Amp 2ml) 100 mcg IVP Q2HR PRN PRN Reason: PAIN SCALE 4-6 (Moderate Stop: 07/07/25 08:48 Last Admin: 07/03/25 00:15 Dose: 100 mcg Lactated Ringer's (Lactated Ringers) 1,000 mls @ 100 mls/hr IV .Q10H [facility] Stop: 08/01/25 08:59 Last Admin: 07/04/25 00:15 Dose: 100 mls/hr Lactated Ringer's (Lactated Ringers) 500 mls @ 999 mls/hr IV .Q31M PRN PRN Reason: HR tracing (Per Policy) Stop: 08/01/25 08:48 Oxytocin/Sodium Chloride (Pitocin 20 Units In Ns) 20 unit in 1,000 mls @ 125 mls/hr IV .Q8H [facility] Stop: 08/01/25 08:59 Last Admin: 07/04/25 05:38 Dose: 125 mls/hr Ampicillin Sodium 1,000 mg/ (Sodium Chloride) 50 mls @ 50 mls/hr IV Q4HR [facility] Stop: 07/09/25 08:53 Last Admin: 07/04/25 00:13 Dose: 50 mls/hr Ampicillin Sodium 2,000 mg/ (Sodium Chloride) 100 mls @ 100 mls/hr IV X1 ONE Stop: 07/02/25 09:55 Ampicillin Sodium 2,000 mg/ (Sodium Chloride) 100 mls @ 100 mls/hr IV X1 ONE Stop: 07/03/25 11:29 Last Admin: 07/03/25 10:50 Dose: 100 mls/hr Oxytocin/Sodium Chloride (Pitocin 30 Units In Ns) 30 unit in 500 mls @ 1 mls/hr IV .Q24H PRN; Protocol PRN Reason: INDUCTION Stop: 08/02/25 10:55 Last Titration: 07/03/25 17:07 Dose: 8 milliunit/min, 8 mls/hr Azithromycin 500 mg/ Sodium (Chloride) 250 mls @ 250 mls/hr IV QDAY@2100 [facility] Stop: 07/10/25 22:02 Cefazolin Sodium (Ancef 2gm Ivpb) 2 gm in 100 mls @ 100 mls/hr IV X1 ONE Stop: 07/03/25 23:02 Last Admin: 07/04/25 01:50 Dose: 100 mls/hr Cefazolin Sodium/Dextrose (Ancef Ivpb) 1 gm in 50 mls @ 100 mls/hr IV X1 ONE Stop: 07/03/25 22:32 Last Admin: 07/04/25 01:40 Dose: 100 mls/hr Lactated Ringer's (Lactated Ringers) 1,000 mls @ 100 mls/hr IV .Q10H [facility] Stop: 08/03/25 18:44 Oxytocin/Sodium Chloride (Pitocin 20 Units In Ns) 20 unit in 1,000 mls @ 125 mls/hr IV .Q8H [facility] Stop: 07/04/25 18:44 Last Admin: 07/04/25 19:03 Dose: Not Given Ferric Sodium Gluconate 125 mg (/ Sodium Chloride) 110 mls @ 110 mls/hr IV X1 ONE Stop: 07/04/25 20:48 Ibuprofen (Ibuprofen Tab 400 Mg Tablet) 800 mg PO X1 PRN PRN Reason: uterine cramping Ketorolac Tromethamine (Ketorolac Inj 30 Mg/Ml Vial) 30 mg IVP Q6H PRN PRN Reason: PAIN 1-6 (mild-mod Lidocaine HCl (Lidocaine Hcl 1% 20 Ml Vial) 20 ml INFL X1 PRN PRN Reason: EPISIOTOMY PAIN Mineral Oil (Mineral Oil 30 Ml Udc) 30 ml TOP PRN PRN PRN Reason: To perineum for delivery. Stop: 08/01/25 08:48 Misoprostol (Misoprostol 200 Mcg Tablet) 800 mcg HI X1 PRN PRN Reason: BLEEDING Last Admin: 07/04/25 02:00 Dose: 800 mcg Misoprostol (Misoprostol 50 Mcg Tablet) 25 mcg VAGINAL Q4HR PRN PRN Reason: CERVIAL RIPENING Stop: 08/01/25 14:00 Last Admin: 07/03/25 06:35 Dose: 25 mcg Naloxone HCl (Naloxone Inj 0.4 Mg/Ml Vial) 0.08 mg IVP Q1M PRN PRN Reason: RESPIRATORY DEPRESSION Stop: 07/05/25 02:25 Non-Formulary Medication (Marcaine) 30 bottle .ROUTE PRN PRN PRN Reason: LOCAL ANESTHESIA Stop: 08/03/25 02:06 Oxytocin (Oxytocin Inj 10 Unit/Ml Vial) 10 unit IM X1 PRN PRN Reason: After placenta delivers Assessment & Plan Plan 24-year-old female with history of palpitations and morbid obesity presenting after delivery, found to have sinus tachycardia on EKG. Hemodynamically stable, symptoms attributable to palpitations and incisional pain. No chest pain, dyspnea, or signs of decompensation. Differential includes post-op pain, anemia, hypovolemia, or anxiety, though underlying structural heart disease remains possible given prior reported abnormal echo. Plan: Trend troponin (x2) to exclude myocardial injury. Order transthoracic echocardiogram to evaluate cardiac structure and function. Monitor on telemetry. Follow up BNP, BMP. Continue supportive management for post-op pain per primary team. Consider cardiology consult depending on echo/troponin results and clinical course. ----- Plan discussed with attending physician Dr. Eimliano Chappell MD PGY-1 Internal Medicine Attending Provider Attestation/Addendum I have examined the patient, reviewed labs and imaging findings, discussed the case with the resident(s), and reviewed entered orders. I agree with the plan of care as outlined in this note, with these additional summaries/recommendations: Patient is a 24-year-old female with a medical history of MILI and seasonal allergies who presents to [facility] emergency department on 07/02/2025 and underwent low-transverse on 07/04/2025. This evening maternal sepsis alert was called and patient endorsed chest pain and thus hospitalist team consulted. Patient seen at bedside. She endorses intermittent chest pain. During my evaluation she had no chest pain. When present she rates it 4-5 out of 10 in severity. Pain is sharp in quality although does not change with respirations. Chest pain most likely secondary to musculoskeletal versus less likely angina. She was told she has an arrhythmia and a ? large heart? and was referred to inset cutter although has not yet made appointment. Troponin obtained which is within normal limits. EKG obtained x [address] changes indicative of acute ischemia. There was concern for atrial flutter on original EKG although P waves noted for every QRS complex and RR intervals are regular. Most likely patient has underlying sinus tachycardia from recent /pain +/- infection. Continue antibiotics and pain management. If symptoms persist we may consider inpatient cardiology consult and initiation of beta-isael or CCB. For now recommend obtaining echocardiogram given patient's history and symptoms. Patient updated on the plan and in agreement. All questions answered satisfaction. Please see residents note for additional details management. Thank you for allowing us to participate in this patient's care. We will continue to follow the patient with you. Dr. Emiliano MD
[2025-07-04 21:01] LABS: INR 0.9 (0.9-1.3); Partial Thromboplastin Time 22.0 Seconds (22.0-36.0); Prothrombin Time 9.8 Seconds (9.0-12.2)
[2025-07-04] MEDS: SIMETHICONE 80 MG CHEW PO (21:25)
[2025-07-04] MEDS: FERRIC SOD GLUC INJ 125 MG in SODIUM CHLORIDE 0.9% 100 ML 110 MG IV (21:25)
[2025-07-04 21:48] LABS: Collection Type, Urine Clean Catch
[2025-07-04 22:32] LABS: Bilirubin,Urine Negative (Negative); Blood,Urine 3+ (Negative); Clarity,Urine Turbid (Clear/Hazy); Color,Urine Brown (Lt Yel-Yel); Glucose, Urine 1+ (Negative); Ketones,Urine Trace (Negative); Leukocyte Esterase,Urine Positive (Negative); Nitrite,Urine Negative (Negative); PH,Urine 5.5 (5.0-7.0); Protein,Urine 1+ (Neg - Trace); RBC,Urine 2306 /hpf (0-3); Specific Gravity,Urine 1.018 (1.001-1.035); Squamous Epithelial Cell,Urine 8 /hpf (0-5); Urobilinogen,Urine Negative mg/dL (0.0-1.0); WBC,Urine 432 /hpf (0-5)
[2025-07-05] VITALS (9 sets, daily range): BP systolic 116–140; BP diastolic 69–88; PULSE 96–110; RESP 19–24; TEMP 36.5–36.9; O2SAT 96–100
[2025-07-05] MEDS: KETOROLAC INJ 30 MG/ML VIAL IVP (00:29)
[2025-07-05 00:49] LABS: Troponin I < 0.020 ng/mL (0.0-0.045)
[2025-07-05] MEDS: ENOXAPARIN SOD INJ 40 MG/0.4 ML SYRINGE SC ×2 (02:13→13:44)
--- NOTE | 2025-07-05 03:46 | PC.NURSE ---
07/04/2025 1950: Patient called out to nurses station with complaint of chest pain, I went to bedside to assess patient. Patient states she feels chest pain/pressure 10. vitals signs BP 139/74 HR 120. I notifed Adri CASTRO of assessment and that i will be calling RR. Rapid response called at 1954, Lilliana LEON updated. 1955:Hanny ICU charge nurse along with radio/tv technician to bedside, updated with assessment.
[2025-07-05] MEDS: Milk Of Magnesia Susp 30 ML UDC PO ×2 (04:31→16:34)
[2025-07-05] MEDS: HYDROcodone/APAP 5/325 TABLET 2 TAB PO (04:31)
[2025-07-05] MEDS: SIMETHICONE 80 MG CHEW PO ×4 (04:32→21:37)
[2025-07-05 06:08] LABS: Troponin I < 0.020 ng/mL (0.0-0.045)
[2025-07-05] MEDS: IBUPROFEN TAB 400 MG TABLET 800 MG PO ×3 (06:37→21:37)
--- NOTE | 2025-07-05 07:57 | PD.LDPPPRG ---
Subjective Subjective Interval history: Patient doing well overall. Rapid Response called last night for abdominal pain that radiates up to chest pain in the setting of pulse 100's, RR 20. She was afebrile and normotensive. Ultimately elevated pulse related to inadequately treated incision pain. EKG showed sinus tachy (per IM hospitalist) and tropinin and BNP were normal. Recommendation is for patient to have cardiac echo, which was ordered by IM. Pain today is controlled. She is ambulating well this morning around the unit, just a bit of lightheadedness toward the end of her walk. Voiding spontaneously since roblero was removed, no issues. Tolerating regular diet without nausea/vomiting. Not yet passing gas. She does endorse some blurry vision since delivery- wears glasses but they recently broke and are at home. No fevers/chills, no CP/SOB. Exam Vital Signs Temp Pulse Resp BP Pulse Ox O2 Del Method 98.0 F 109 H 21 H 133/69 H 100 Room Air 07/05/25 04:12 07/05/25 04:12 07/05/25 04:12 07/05/25 04:12 07/05/25 04:12 07/05/25 04:12 Narrative Exam General: well-developed, no acute distress, conversant Cardiac: normal heart rate Lungs: breathing without distress Abdomen: soft, post-gravid, obese, non-tender, no rebound or guarding, pfannenstiel incision covered by dry/clean/intact prineo bandage. Incision well reapproximated. No erythema, drainage or induration. Fundus firm at u-2cm. Extremities: no pain with palpation of calves, 1+ edema of BLE Objective Labs 07/04/25 20:24 07/04/25 20:24 Labs: Laboratory Results - last 24 hr 07/04/25 07/04/25 07/04/25 10:24 20:24 21:00 WBC 14.1 H D 13.9 H RBC 3.59 L 3.08 L Hgb 10.2 L 8.9 L Hct 30.3 L 26.3 L MCV 84 85 MCH 28.4 28.9 MCHC 33.7 33.8 RDW Std Deviation 44.3 44.9 Plt Count 188 189 Neut % (Auto) 77 72 Lymph % (Auto) 17 22 [place] % (Auto) 5 5 Eos % (Auto) 0 1 Baso % (Auto) 0 0 Neut # (Auto) 10.9 H 10.0 H Lymph # (Auto) 2.3 3.0 [place] # (Auto) 0.8 0.8 Eos # (Auto) 0.0 0.1 Baso # (Auto) 0.0 0.0 Immature Gran # (Auto) 0.05 H 0.07 H Absolute Nucleated RBC 0.00 0.00 Immature Gran % 0 1 H Nucleated RBC % 0 0 PT 9.8 INR 0.9 APTT 22.0 Sodium 140 Potassium 3.9 Chloride 107 Carbon Dioxide 22.5 Anion Gap 11 BUN < 5 L Creatinine 0.7 Estim Creat Clear Calc 160.3 eGFR > 60 BUN/Creatinine Ratio 7 L Glucose 101 Calculated Osmolality 276 Lactic Acid 1.4 Calcium 9.1 Corrected Calcium 9.9 Total Bilirubin 0.5 AST 19 ALT < 7 L Alkaline Phosphatase 134 H Troponin I < 0.020 B-Natriuretic Peptide 22 Total Protein 5.0 L Albumin 3.0 L Globulin 2.0 L Albumin/Globulin Ratio 1.5 Ur Collection Type Clean Catch Urine Color Brown A Urine Clarity Turbid A Urine pH 5.5 Ur Specific [place] 1.018 Urine Protein 1+ A Urine Glucose (UA) 1+ A Urine Ketones Trace Urine Blood 3+ A Urine Nitrite Negative Urine Bilirubin Negative Urine Urobilinogen (Auto) Negative Ur Leukocyte Esterase Positive Urine RBC 2306 H Urine WBC 432 H Ur Squamous Epith Cells 8 H Urine Bacteria None 07/05/25 07/05/25 00:20 05:15 WBC RBC Hgb Hct MCV MCH MCHC RDW Std Deviation Plt Count Neut % (Auto) Lymph % (Auto) [place] % (Auto) Eos % (Auto) Baso % (Auto) Neut # (Auto) Lymph # (Auto) [place] # (Auto) Eos # (Auto) Baso # (Auto) Immature Gran # (Auto) Absolute Nucleated RBC Immature Gran % Nucleated RBC % PT INR APTT Sodium Potassium Chloride Carbon Dioxide Anion Gap BUN Creatinine Estim Creat Clear Calc eGFR BUN/Creatinine Ratio Glucose Calculated Osmolality Lactic Acid Calcium Corrected Calcium Total Bilirubin AST ALT Alkaline Phosphatase Troponin I < 0.020 < 0.020 B-Natriuretic Peptide Total Protein Albumin Globulin Albumin/Globulin Ratio Ur Collection Type Urine Color Urine Clarity Urine pH Ur Specific [place] Urine Protein Urine Glucose (UA) Urine Ketones Urine Blood Urine Nitrite Urine Bilirubin Urine Urobilinogen (Auto) Ur Leukocyte Esterase Urine RBC Urine WBC Ur Squamous Epith Cells Urine Bacteria Assessment & Plan Problem List (1) Arrest of dilation, delivered, current hospitalization: Status: Acute Assessment and plan: Rosmery is a 24 yo [id number] s/p uncomplicated PLTCS for arrest of dilation when undergoing IOl for BMI > 50, doing well on POD 1. Normotensive, mild tachycardia, afebrile, benign exam. Hemodynamically stable with no evidence of infection. Hgb 8.9 from starting 11.3 Rapid Response called last night for abdominal pain that radiates up to chest pain in the setting of pulse 100's, RR 20. She was afebrile and normotensive. Ultimately elevated pulse related to inadequately treated incision pain (she has mild tachycardia at baseline related to habitus). EKG showed sinus tachy (per IM hospitalist) and tropinin and BNP were normal. Recommendation is for patient to have cardiac echo, which was ordered by IM. Patient endorses some blurry vision and a bit of lightheadedness with ambulating. She received IV iron infusion last night, but since symptomatic now will transfuse 1u pRBC. Plan: -Continue routine /post-op care -Transfuse 1u pRBCs. Pre-medicate with IV benadryl and tylenol. CBC 4hr after transfusion -Cardiac echo ordered, appreciate IM recommendations -Regular diet -Motrin 800mg PO Q8hr, norco 5/325mg PO Q6hr prn pain -Encourage ambulation and use of IS (2) Delivery by section: Status: Acute (3) Obesity affecting in third trimester: Status: Acute (4) Positive GBS test: Status: Acute Time Spent With Patient Time: Total time spent is greater than 50% in coordination of care (as documented) at patient's floor/unit and/or counseling patient:
[2025-07-05] MEDS: DOCUSATE SOD 100 MG CAPSULE PO ×2 (08:35→21:36)
[2025-07-05] MEDS: ACETAMINOPHEN IVPB 1,000 MG/100 ML VIAL 250 MG IV (08:35)
--- NOTE | 2025-07-05 14:12 | ESPR_ITS ---
<Statement entered by Nixon Cunha MD - 07/05/25 16:54> Senior Resident Attestation: I supervised/discussed management plan with internet database specialist physician Dr. Lyon, and was involved in the care of this patient. I personally saw and examined the patient and discussed the assessment and plan with the entire medicine team, including my attending. I agree with the assessment and plan as documented. Patient reports no new complaints, denies any chest pain, abdominal pain, shortness of breath nausea or vomiting. Pending echocardiogram to rule out cardiac nature of episode of chest pain. Patient's care was discussed with attending physician, Dr. Padron. Nixon Cunha MD PGY-3. Documentation for date of: 07/05/25 Subjective Subjective Interval history: , post- > 24 hours s/p C section. PMHx anxiety, depression, palpitaitons. She reports that she was previously referred to cardiology for palpitations but has not been able to follow up. HR 90-120s. Denies chest pain, shortness of breath, palpitations, headache at this time. Reports abdominal pain around C section incision, does not radiate to chest. Troponin negative x3. Lactic acid unremarkable. EKG sinus tachycardic HR 117 QTc 401. Similar findings on repeat EKG. CXR unremarkable. Exam Vital Signs Temp Pulse Resp BP Pulse Ox O2 Del Method 98.5 F 106 H 20 138/81 H 98 Room Air 07/05/25 13:25 07/05/25 13:25 07/05/25 13:25 07/05/25 13:25 07/05/25 13:25 07/05/25 11:34 Narrative Exam General: No acute distress, well nourished, obese (BMI 52) Eye: PERRL, EOMI, normal conjunctiva, no scleral icterus HENT: Normocephalic, atraumatic, normal hearing, moist oral mucosa Neck: Supple, non-tender, no JVD, no lymphadenopathy Lungs: Clear to auscultation bilaterally, non-labored respirations, symmetric chest rise, no use of accessory muscles Heart: Normal S1 and S2, no S3 or S4 appreciated. Normal rate and regular rhythm, no murmurs, rubs gallops, or edema. Peripheral pulses intact bilaterally, capillary refill brisk distally Abdomen: Soft, post-gravid, non-tender, non-distended, normal bowel sounds. No guarding or rebound tenderness. Musculoskeletal: Normal range of motion and strength, no tenderness or swelling. No TTP of chest. Skin: Skin is warm, dry, no rashes or lesions. C section incision clean and dry, no erythema, drainage, or warmth. Neurologic: Alert, awake and oriented x3. CN II-XII grossly intact. No focal neuro deficits. No signs of meningeal irritation noted. Psychiatric: Cooperative, appropriate mood and affect Objective Labs 07/04/25 20:24 07/04/25 20:24 Labs: Laboratory Results - last 24 hr 07/04/25 07/04/25 07/05/25 20: 21:00 00:20 WBC 13.9 H RBC 3.08 L Hgb 8.9 L Hct 26.3 L MCV 85 MCH 28.9 MCHC 33.8 RDW Std Deviation 44.9 Plt Count 189 Neut % (Auto) 72 Lymph % (Auto) 22 [place] % (Auto) 5 Eos % (Auto) 1 Baso % (Auto) 0 Neut # (Auto) 10.0 H Lymph # (Auto) 3.0 [place] # (Auto) 0.8 Eos # (Auto) 0.1 Baso # (Auto) 0.0 Immature Gran # (Auto) 0.07 H Absolute Nucleated RBC 0.00 Immature Gran % 1 H Nucleated RBC % 0 PT 9.8 INR 0.9 APTT 22.0 Sodium 140 Potassium 3.9 Chloride 107 Carbon Dioxide 22.5 Anion Gap 11 BUN < 5 L Creatinine 0.7 Estim Creat Clear Calc 160.3 eGFR > 60 BUN/Creatinine Ratio 7 L Glucose 101 Calculated Osmolality 276 Lactic Acid 1.4 Calcium 9.1 Corrected Calcium 9.9 Total Bilirubin 0.5 AST 19 ALT < 7 L Alkaline Phosphatase 134 H Troponin I < 0.020 < 0.020 B-Natriuretic Peptide 22 Total Protein 5.0 L Albumin 3.0 L Globulin 2.0 L Albumin/Globulin Ratio 1.5 Ur Collection Type Clean Catch Urine Color Brown A Urine Clarity Turbid A Urine pH 5.5 Ur Specific [place] 1.018 Urine Protein 1+ A Urine Glucose (UA) 1+ A Urine Ketones Trace Urine Blood 3+ A Urine Nitrite Negative Urine Bilirubin Negative Urine Urobilinogen (Auto) Negative Ur Leukocyte Esterase Positive Urine RBC 2306 H Urine WBC 432 H Ur Squamous Epith Cells 8 H Urine Bacteria None Blood Type Antibody Screen Crossmatch Blood Bank Wristband ID 07/05/25 07/05/25 05:15 08:30 WBC RBC Hgb Hct MCV MCH MCHC RDW Std Deviation Plt Count Neut % (Auto) Lymph % (Auto) [place] % (Auto) Eos % (Auto) Baso % (Auto) Neut # (Auto) Lymph # (Auto) [place] # (Auto) Eos # (Auto) Baso # (Auto) Immature Gran # (Auto) Absolute Nucleated RBC Immature Gran % Nucleated RBC % PT INR APTT Sodium Potassium Chloride Carbon Dioxide Anion Gap BUN Creatinine Estim Creat Clear Calc eGFR BUN/Creatinine Ratio Glucose Calculated Osmolality Lactic Acid Calcium Corrected Calcium Total Bilirubin AST ALT Alkaline Phosphatase Troponin I < 0.020 B-Natriuretic Peptide Total Protein Albumin Globulin Albumin/Globulin Ratio Ur Collection Type Urine Color Urine Clarity Urine pH Ur Specific [place] Urine Protein Urine Glucose (UA) Urine Ketones Urine Blood Urine Nitrite Urine Bilirubin Urine Urobilinogen (Auto) Ur Leukocyte Esterase Urine RBC Urine WBC Ur Squamous Epith Cells Urine Bacteria Blood Type B Positive Antibody Screen NEGATIVE Crossmatch See Detail Blood Bank Wristband ID Yes Quality Measures Quality Measures VTE prophylaxis Assessment & Plan Assessment Current Active Medications: Generic Name Dose Route Start Last Admin Trade Name Freq PRN Reason Stop Dose Admin Hydrocodone Bitart/Acetaminophen 1 tab 07/04/25 02:34 Hydrocodone/Apap 5/325 Tablet PO 07/09/25 02:33 Q4HR PRN Patient rated pain 7 to 8 Hydrocodone Bitart/Acetaminophen 2 tab 07/04/25 02:34 07/05/25 04:31 Hydrocodone/Apap 5/325 Tablet PO 07/09/25 02:33 2 tab Q6HR PRN Administration Patient rated pain 9 to 10 Diphenhydramine HCl 12.5 mg 07/04/25 02:26 07/05/25 08:36 Diphenhydramine Inj 50 Mg/Ml Vial IVP 12.5 mg Q2H PRN Administration ITCHING Docusate Sodium 100 mg 07/04/25 09:00 07/05/25 08:35 Docusate Sod 100 Mg Capsule PO 08/03/25 08:59 100 mg BID JUN Administration Enoxaparin Sodium 40 mg 07/05/25 02:00 07/05/25 13:44 Enoxaparin Sod Inj 40 Mg/0.4 Ml Syringe SC 07/19/25 01:59 40 mg Q12H JUN Administration Tranexamic Acid 1,000 mg in 100 mls @ 200 mls/hr 07/02/25 08:49 Tranexamic Acid Ivpb IV [id number] PRN BLEEDING Acetaminophen 1,000 mg in 100 mls @ 250 mls/hr 07/04/25 02:26 07/05/25 08:35 Ofirmev Inj IV 250 mls/hr Q6H PRN Administration PAIN SCALE 1-3 (mild Ibuprofen 800 mg 07/05/25 06:00 07/05/25 13:44 Ibuprofen Tab 400 Mg Tablet PO 08/04/25 05:59 800 mg Q8HR JUN Administration Magnesium Hydroxide 30 ml 07/04/25 02:34 07/05/25 04:31 Milk Of Magnesia Susp 30 Ml Udc PO 08/03/25 02:33 30 ml [id number] PRN Administration CONSTIPATION Measles/Mumps/Rubella Vaccine Live 0.5 ml 07/04/25 02:34 Measles, Mumps & Rubella Vacc 0.5 Ml Vial SCi X1 PRN if non-immune or equivocal Methylergonovine Maleate 0.2 mg 07/02/25 08:49 Methylergonovine Inj 0.2 Mg/Ml Vial IM X1 PRN Excessive Bleeding Methylergonovine Maleate 0.2 mg 07/04/25 02:34 Methylergonovine Inj 0.2 Mg/Ml Vial IM 07/11/25 02:33 Q6HR PRN Excessive bleeding Methylergonovine Maleate 0.2 mg 07/04/25 02:34 Methylergonovine 0.2 Mg Tablet PO 07/11/25 02:33 Q6HR PRN Excessive bleeding Ondansetron HCl 4 mg 07/04/25 02:26 Ondansetron Inj 2 Mg/Ml Inj 2 Ml IVP 08/03/25 02:25 Q6HR PRN NAUSEA OR VOMITING Protocol Simethicone 80 mg 07/04/25 02:34 07/05/25 13:44 Simethicone 80 Mg Chew PO 08/03/25 02:33 80 mg Q4HR PRN Administration GAS Plan Ms. Aaron is a 24 y/o female with PMH anxiety, depression, palpitations obesity (BMI 52) now post- s/p C section >24 hours who presented with abdominal pain that radiated to her chest. Consult for chest pain. # Chest pain - now resolved Post- s/p C section >24 hours Initially presented with abdominal pain around her C section incision that radiated to her chest. Denies radiation down arms or to jaw. Denies headache. Also reported blurry vision that has somewhat resolved. All visual lombardo in tact on exam. This morning, patient denies chest pain. No TTP of chest on exam. Denies acid reflux symptoms. EKG showed sinus tachycardia HR 117, QTc 401. Repeat EKG showed similar findings. HR on exam today 90s. Troponin negative x3. Lactic acid, BNP, CXR unremarkable UA showed 1+ glucose, 3+ blood, + LE, 2306 RBC, 432 WBC, 8 squamous epithelial cells, no bacteria Unlikely to be cardiac in nature. Most likely post-op pain. Plan: - Pending echocardiogram - CTM telemetry #Normocytic normochromic anemia i/s/o recent C section Hgb 8.9 --> given 1U pRBC Plan: - CTM with daily CBC Checklist Dispo: pending echo Diet: regular Bowel Reg: Docusate BID, milk of magnesia PRN VTE ppx: Lovenox 40 mg subQ q12h GI ppx: none Pain mgmt: Tylenol, ibuprofen, [place] 5/325, Code status: full Plan discussed with Dr. Cunha and Dr. Vito Lyon MD PGY1 Attending Provider Attestation/Addendum Gopal, Tanika Padron DO, attest that I was physically present for the valles portions of the service and evaluated the patient with the resident and I reviewed and discussed the case with the resident and agree with the resident's findings and plans of care as documented above Patient seen and evaluated this AM. She states that her mother has hx of palpitations and father wtih hx of irregular heart rhythm. Patient denies history of palpitations and denies feeling the tachycardia. She denied any shortness of breath. She has some pain in her abdomen which she thinks is due to gas pain after receiving gasx. Pending echocardiogram at this time. Suspect that episode of tachycardia may be secondary to pain. Patient is currently receiving 1 unit of pRBCs. Will f/u with echocardiogram.
[2025-07-05] MEDS: HYDROcodone/APAP 5/325 TABLET 1 TAB PO ×2 (16:32→21:37)
[2025-07-05 18:27] LABS: Basophils # (Auto) 0.0 Thou/mm3 (0.0-0.2); Basophils % (Auto) 0 % (0-2.5); Eosinophils # (Auto) 0.1 Thou/mm3 (0.0-0.5); Eosinophils % (Auto) 1 % (0-10); Hematocrit 26.6 % (36.0-46.0); Hemoglobin 9.0 g/dL (12.0-16.0); Immature Granulocytes Auto 0.03 Thou/mm3 (0.00-0.00); Lymphocytes # (Auto) 2.4 Thou/mm3 (1.0-4.8); Lymphocytes % (Auto) 24 % (10-50); Mean Corpuscular HGB Conc 33.8 g/dl (31.0-37.0); Mean Corpuscular Hemoglobin 28.4 pg (25.0-35.0); Mean Corpuscular Volume 84 fL (80-100); Monocytes # (Auto) 0.4 Thou/mm3 (0.0-0.8); Monocytes % (Auto) 4 % (0-12); Neutrophils # (Auto) 7.0 Thou/mm3 (1.8-7.7); Neutrophils % (Auto) 70 % (37-80); Nucleated Red Blood Cell # 0.00 Thou/mm3 (0.00-0.00); Nucleated Red Blood Cell % 0 /100 WBC (0); Platelet Count 180 Thou/mm3 (140-440); RDW Standard Deviation 44.4 fL (36.4-46.3); Red Blood Count 3.17 Miln/mm3 (4.00-5.20); White Blood Count 9.9 Thou/mm3 (3.6-11.0)
[2025-07-06] MEDS: ENOXAPARIN SOD INJ 40 MG/0.4 ML SYRINGE SC ×2 (02:39→14:15)
[2025-07-06 05:15] VITALS: BP 108/70; PULSE 100; RESP 20; TEMP 36.5; O2SAT 98
[2025-07-06] MEDS: IBUPROFEN TAB 400 MG TABLET 800 MG PO ×2 (07:02→14:16)
[2025-07-06 07:30] VITALS: BP 118/81; PULSE 98; RESP 17; TEMP 36.7; O2SAT 99
[2025-07-06 08:04] LABS: Basophils # (Auto) 0.0 Thou/mm3 (0.0-0.2); Basophils % (Auto) 0 % (0-2.5); Eosinophils # (Auto) 0.2 Thou/mm3 (0.0-0.5); Eosinophils % (Auto) 2 % (0-10); Hematocrit 26.8 % (36.0-46.0); Hemoglobin 9.0 g/dL (12.0-16.0); Immature Granulocytes Auto 0.03 Thou/mm3 (0.00-0.00); Lymphocytes # (Auto) 2.3 Thou/mm3 (1.0-4.8); Lymphocytes % (Auto) 25 % (10-50); Mean Corpuscular HGB Conc 33.6 g/dl (31.0-37.0); Mean Corpuscular Hemoglobin 28.9 pg (25.0-35.0); Mean Corpuscular Volume 86 fL (80-100); Monocytes # (Auto) 0.4 Thou/mm3 (0.0-0.8); Monocytes % (Auto) 5 % (0-12); Neutrophils # (Auto) 6.2 Thou/mm3 (1.8-7.7); Neutrophils % (Auto) 68 % (37-80); Nucleated Red Blood Cell # 0.00 Thou/mm3 (0.00-0.00); Nucleated Red Blood Cell % 0 /100 WBC (0); Platelet Count 175 Thou/mm3 (140-440); RDW Standard Deviation 46.5 fL (36.4-46.3); Red Blood Count 3.11 Miln/mm3 (4.00-5.20); White Blood Count 9.2 Thou/mm3 (3.6-11.0)
[2025-07-06 08:32] LABS: Thyroid Stimulating Hormone 2.28 uIU/mL (0.55-4.78)
[2025-07-06] MEDS: DOCUSATE SOD 100 MG CAPSULE PO (08:36)
[2025-07-06 11:00] VITALS: BP 121/75; PULSE 95; RESP 17; TEMP 36.8; O2SAT 99
--- NOTE | 2025-07-06 15:47 | ESPR_ITS ---
<Statement entered by Tramaine Lou MD - 07/06/25 17:40> Patient was examined and case was reviewed with team including attending physician. Note reviewed, I agree with most of its contents and agree with the patient's care as documented by Dr. Rogers Patient seen today at the bedside found awake, alert, orientedx3. No overnight events reported. Vitals and labs reviewed. No active complaints at this time. Consulted for sinus tachycardia and palpitations. Pending echocardiogram however patient has a scheduled appointment with outpatient cardiology next week. Rest of medical problems stable at this time. Patient is medically stable from an internal medicine standpoint. At this point internal medicine team will sign off from the case. Thank you for the opportunity to participate in the care of this patient. Case discussed with my attending Dr. Vito Lou MD PGY-2 Disclaimer: Despite multiple revisions, due to the dictation software being used, the document bellow may not be free of grammatical errors including phonetic/typographic errors. However, this does not deter from our commitment to providing health care in the patient's best interest in mind. Documentation for date of: 07/06/25 Subjective Subjective Interval history: Patient was seen at the bedside today. She reports no new complaints. Per nursing staff, the patient stated she has a scheduled outpatient cardiology appointment next week. Medically stable for discharge from an internal medicine standpoint. Exam Vital Signs Temp Pulse Resp BP Pulse Ox O2 Del Method 98.3 F 95 17 121/75 99 Room Air 07/06/25 11:07/06/25 11:07/06/25 11:07/06/25 11:07/06/25 11:07/06/25 11:00 Narrative Exam Physical Exam General: No acute distress, well nourished, obese (BMI 52). HEENT: Normocephalic, atraumatic, mucous membranes moist. Heart: Regular rate and rhythm, no murmurs. Normal rate and regular rhythm. Lungs: Clear to auscultation with no wheezing or crackles. Abdomen: Soft, post-gravid, nondistended, nontender. No guarding or rebound tenderness. Neurologic: Alert and oriented x3, no gross neurological deficit, and patient able to move all 4 extremities. Extremities: No edema. Skin: No rash or ecchymoses. Objective Labs 07/06/25 06:53 07/04/25 20:24 Labs: Laboratory Results - last 24 hr 07/05/25 07/06/25 18:12 06:53 WBC 9.9 9.2 RBC 3.17 L 3.11 L Hgb 9.0 L 9.0 L Hct 26.6 L 26.8 L MCV 84 86 MCH 28.4 28.9 MCHC 33.8 33.6 RDW Std Deviation 44.4 46.5 H Plt Count 180 175 Neut % (Auto) 70 68 Lymph % (Auto) 24 25 [place] % (Auto) 4 5 Eos % (Auto) 1 2 Baso % (Auto) 0 0 Neut # (Auto) 7.0 6.2 Lymph # (Auto) 2.4 2.3 [place] # (Auto) 0.4 0.4 Eos # (Auto) 0.1 0.2 Baso # (Auto) 0.0 0.0 Immature Gran # (Auto) 0.03 H 0.03 H Absolute Nucleated RBC 0.00 0.00 Immature Gran % 0 0 Nucleated RBC % 0 0 TSH 2.28 Quality Measures Quality Measures VTE prophylaxis Assessment & Plan Assessment Current Active Medications: Generic Name Dose Route Start Last Admin Trade Name Freq PRN Reason Stop Dose Admin Hydrocodone Bitart/Acetaminophen 1 tab 07/04/25 02:34 07/05/25 21:37 Hydrocodone/Apap 5/325 Tablet PO 07/09/25 02:33 1 tab Q4HR PRN Administration Patient rated pain 7 to 8 Hydrocodone Bitart/Acetaminophen 2 tab 07/04/25 02:34 07/05/25 04:31 Hydrocodone/Apap 5/325 Tablet PO 07/09/25 02:33 2 tab Q6HR PRN Administration Patient rated pain 9 to 10 Diphenhydramine HCl 12.5 mg 07/04/25 02:26 07/05/25 08:36 Diphenhydramine Inj 50 Mg/Ml Vial IVP 12.5 mg Q2H PRN Administration ITCHING Docusate Sodium 100 mg 07/04/25 09:00 07/06/25 08:36 Docusate Sod 100 Mg Capsule PO 08/03/25 08:59 100 mg BID JUN Administration Enoxaparin Sodium 40 mg 07/05/25 02:00 07/06/25 14:15 Enoxaparin Sod Inj 40 Mg/0.4 Ml Syringe SC 07/19/25 01:59 40 mg Q12H JUN Administration Tranexamic Acid 1,000 mg in 100 mls @ 200 mls/hr 07/02/25 08:49 Tranexamic Acid Ivpb IV [id number] PRN BLEEDING Acetaminophen 1,000 mg in 100 mls @ 250 mls/hr 07/04/25 02:26 07/05/25 08:35 Ofirmev Inj IV 250 mls/hr Q6H PRN Administration PAIN SCALE 1-3 (mild Ibuprofen 800 mg 07/05/25 06:00 07/06/25 14:16 Ibuprofen Tab 400 Mg Tablet PO 08/04/25 05:59 800 mg Q8HR JUN Administration Magnesium Hydroxide 30 ml 07/04/25 02:34 07/05/25 16:34 Milk Of Magnesia Susp 30 Ml Udc PO 08/03/25 02:33 30 ml [id number] PRN Administration CONSTIPATION Measles/Mumps/Rubella Vaccine Live 0.5 ml 07/04/25 02:34 Measles, Mumps & Rubella Vacc 0.5 Ml Vial SCi X1 PRN if non-immune or equivocal Methylergonovine Maleate 0.2 mg 07/02/25 08:49 Methylergonovine Inj 0.2 Mg/Ml Vial IM X1 PRN Excessive Bleeding Methylergonovine Maleate 0.2 mg 07/04/25 02:34 Methylergonovine Inj 0.2 Mg/Ml Vial IM 07/11/25 02:33 Q6HR PRN Excessive bleeding Methylergonovine Maleate 0.2 mg 07/04/25 02:34 Methylergonovine 0.2 Mg Tablet PO 07/11/25 02:33 Q6HR PRN Excessive bleeding Ondansetron HCl 4 mg 07/04/25 02:26 Ondansetron Inj 2 Mg/Ml Inj 2 Ml IVP 08/03/25 02:25 Q6HR PRN NAUSEA OR VOMITING Protocol Simethicone 80 mg 07/04/25 02:34 07/05/25 21:37 Simethicone 80 Mg Chew PO 08/03/25 02:33 80 mg Q4HR PRN Administration GAS Plan 24 year-old female with past medical history of anxiety, depression, palpitations obesity (BMI 52) now post- s/p C section >24 hours who presented with abdominal pain that radiated to her chest. Consult for chest pain. #Chest pain (resolved) Post- s/p C section >24 hours. Initially presented with abdominal pain around her C section incision that radiated to her chest. Denies radiation down arms or to jaw. Denies headache. Also reported blurry vision that has somewhat resolved. All visual lombardo in tact on exam. This morning, patient denies chest pain. No TTP of chest on exam. Denies acid reflux symptoms. EKG showed sinus tachycardia HR 117, QTc 401. Repeat EKG showed similar findings. HR on exam today 90s. Troponin negative x3. Lactic acid, BNP, CXR unremarkable. UA showed 1+ glucose, 3+ blood, + LE, 2306 RBC, 432 WBC, 8 squamous epithelial cells, no bacteria. Unlikely to be cardiac in nature. Most likely post-op pain. Plan: - Outpatient docket clerk follow-up scheduled for next week. #Normocytic normochromic anemia i/s/o recent C section. Hgb 8.9 --> given 1U pRBC. Plan: - CTM with daily CBC. Checklist Diet: regular Bowel Reg: Docusate BID, milk of magnesia PRN VTE ppx: Lovenox 40 mg subQ q12h GI ppx: none Pain mgmt: Tylenol, ibuprofen, [place] 5/325 Code status: full Thank you very much for the opportunity to participate in care of this patient. Patient is medically stable for discharge from an internal medicine standpoint. For any additional concerns or questions, please refer to primary team with Dr. Casas. Patient plan of care was discussed with the senior resident, Dr. Ayoub, and attending physician, Dr. Padron. Philippe Rogers DO PGY-1 Attending Provider Attestation/Addendum Tanika Herron DO, attest that I was physically present for the valles portions of the service and evaluated the patient with the resident and I reviewed and discussed the case with the resident and agree with the resident's findings and plans of care as documented above Patient seen and evaluated this AM. Patient had mild tachycardia overnight, but asymptomatic. Patient states that she is doing well and ready to go home. She denies any chest pain or shortness of breath. She has a scheduled cardiology outpatient next week. Patient has been afebrile otherwise. Echo was ordered, but cancelled by primary as she is already scheduled for outpatient f/u. Medicine will sign off at this time.
[2025-07-06 19:15] VITALS: BP 125/82; PULSE 106; RESP 16; TEMP 37.1; O2SAT 99
--- NOTE | 2025-07-06 19:58 | ESDS_ITS ---
DS: Providers Provider Date of admission: 07/02/25 07:45 Primary care physician: Physician No Primary/Family Admitting Provider: Heather Casas MD Attending Provider on Admission: Tanika Padron DO Consults: 07/04/25 02:35 Referral Routine Comment: 07/04/25 20:15 Consult to Adult Hospitalist Stat Comment: Consulting Provider: Anjel Cummings Attending Provider on DC: [facility] ([facility]) Discharging Provider: Rosalee [facility] MD ([facility]) Anticipated date of discharge: 07/06/25 DS: Diagnosis Discharge Diagnosis (1) Morbid obesity with BMI of 50.0-59.9, adult: Status: Acute Assessment & Plan: Lovenox x 6 to 8 weeks post op (2) Delivery by section: Status: Acute Assessment & Plan: Discharge directions given. No heavy lifting, tampons, intercourse, douching or exercise x 6 weeks. Moderate walking. (3) Arrest of dilation, delivered, current hospitalization: Status: Acute Problem List Completed Was Problem List Reviewed/Reconciled?: Yes Summary/Hosp Course Brief History: The patient is a 24-year-old G1 now P1 [address] Casas for a scheduled induction of labor secondary to morbid obesity with a BMI of 52. Please see history and physical for further details. care was with [facility]. Patient underwent a primary low-transverse section on 07/04/2025 under general anesthesia and delivered around 2:30 in the morning. Please see history and physical for further details and op report for further details. Her predelivery hemoglobin was 11.3 she dropped to 8.9 she had some shortness of breath with ambulating and did get 1 unit of blood on POD #1. Her hemoglobin has been stable since at 9. Patient had some abdominal pain radiating to her chest on postop day #1 and was seen by internal medicine she also had a rapid response called. Patient states that she has an irregular heartbeat and her EKG showed some sinus tachycardia. Internal medicine was following her every day. The patient cannot get an echocardiogram this admission as there is no tech available for 2 days. Patient already has a follow-up appointment with a merchandise manager in [place]. She is post op day #2 ambulating, passing flatus ,tolerating a general diet and her labs are stable, vital signs are stable we will discharge her home. She is tolerating oral pain medication. Peripartum Data Delivery Method: Low Transverse Procedures: Procedures Operation Date: 07/04/25 01:35 Actual Procedure Side Surgeon p primary ceseran section Heather Casas MD complications: transfusion Status at Discharge Cognitive/behavioral status at discharge: Patient is alert and oriented x 3 in no apparent distress Functional status at discharge: independent ambulation Overall status at discharge: patient is progressing back to baseline Time Spent with Patient Time attestation: Total time spent providing and/or coordinating discharge services: Time spent: Less than 30 minutes Specific discharge activities: No heavy lifting, intercourse, tampons, douching, heavy exercise x 6 weeks. Call with fevers 100.0 ?F or higher, heavy vaginal bleeding or signs of depression. Follow-up with your merchandise manager next week. Follow-up with your primary care about a suspected lipoma in the [facility] axillary region. Exam Vital Signs Temp Pulse Resp BP Pulse Ox O2 Del Method 98.3 F 95 17 121/75 99 Room Air 07/06/25 11:00 07/06/25 11:00 07/06/25 11:00 07/06/25 11:00 07/06/25 11:00 07/06/25 11:00 Narrative Exam Patient is alert and oriented x 3 in no apparent distress. Fundus is firm incision clean dry and intact. She has a large pannus. Extremities show no cyanosis clubbing or edema patient does have a mobile approximately 3 x 3 cm mass in her right axillary region that is nontender to the touch as it feels like a lipoma. Discharge Plan Plan Patient Disposition: HOME (Self Care) Disposition Comment: stable Patient condition on transfer: Stable Prescriptions/Referrals Prescriptions/Med Rec: New hydrocodone-acetaminophen 5-325 mg Tablet 1 tab PO Q6H MDD 4 tabs PRN (Reason: Patient rated pain 7 to 8) 10 Days Qty: 15 0RF docusate sodium 100 mg Capsule 100 mg PO BID 10 Days Qty: 20 0RF ibuprofen 800 mg tablet 800 mg PO Q8HR 10 Days Qty: 30 0RF enoxaparin 40 mg/0.4 mL Syringe 40 mg SCi QDAY Qty: 4 10RF Continued folic acid 1 mg tablet 1 mg PO DAILY Patient Comments: TAKE 1 TABLET BY MOUTH ONCE DAILY Vitamin 27 mg iron- 800 mcg tablet 1 tab PO DAILY Patient Comments: TAKE 1 TABLET BY MOUTH ONCE DAILY ferrous sulfate 325 mg (65 mg iron) tablet 325 mg PO QDAY Qty: 60 0RF Discontinued aspirin 81 mg tablet,chewable 1 tab PO BID Patient Comments: CHEW AND SWALLOW 1 TABLET BY MOUTH TWICE DAILY Referrals: No Primary/Family,Physician [Primary Care Provider] - Patient/Caregiver Discharge Instructions Discharge Activity: activity as tolerated and other Other Discharge Activity Instructions:: vaginal rest and no heavy lifting more than 10 pounds for [address] while taking narcotic. keep incision cl puneet and dry. Schedule an appointment with your OB doctor in one week Take daily Lovenox to prevent DVT x 6- 8 weeks Other Discharge Diet Instructions: regular diet Education Materials: Obesity and Its Impact on Health, Losing Weight for Heart Health, After a , , : Caring for Yourself, C Section Dc Print Language: Vietnamese Activity Restrictions/Additional Instructions: follow up with NICA Burgess in 2 weeks for postop incision check, call for appointment GO TO YOUR EDITORIAL WRITER APPOINTMENT IN ONE WEEK FOLLOW UP WITH YOUR PRIMARY CARE ABOUT RIGHT AXILLARY mASS, PROBABLE LIPOMA Stand Alone Forms: Tiffanie Award Info., Patient Portal Info Letter Discharge Order Discharge Orders: Discharge (Routine); Ordered 07/06/25 Ordered By: Rosalee Bennett ([facility]) Planned Discharge Date 07/06/25
--- NOTE | 2025-07-06 20:29 | PD.LDPPPRG ---
Subjective Subjective Interval history: POD #2 Tolerating a general diet, ambulating. Wants to go home. No more chest pain shortness of breath. She has an appointment with a friction saw operator in [place] next week. She is concerned because she has a lipoma under her right axillary area she wants me to look at. It is about 3 x 4 cm nontender. Mobile. She will mention this to her primary care. Exam Vital Signs Temp Pulse Resp BP Pulse Ox O2 Del Method 98.3 F 95 17 121/75 99 Room Air 07/06/25 11:00 07/06/25 11:00 07/06/25 11:00 07/06/25 11:00 07/06/25 11:00 07/06/25 11:00 Narrative Exam Alert and Orientated x 3, No Distress. Abdomen obese with a large pannus. Incision clean dry and intact. Extremities show no significant edema or erythema Routine Chest/Breast/Axilla Exam Axillae: Present mass (She has a mobile 3 x 4 cm mass in her right axillary region close to the surface. Nontender. Does not appear to be an abscess. Possible lipoma.) Objective Labs 07/06/25 06:53 07/04/25 20:24 Labs: Laboratory Results - last 24 hr 07/06/25 06:53 WBC 9.2 RBC 3.11 L Hgb 9.0 L Hct 26.8 L MCV 86 MCH 28.9 MCHC 33.6 RDW Std Deviation 46.5 H Plt Count 175 Neut % (Auto) 68 Lymph % (Auto) 25 Crawford % (Auto) 5 Eos % (Auto) 2 Baso % (Auto) 0 Neut # (Auto) 6.2 Lymph # (Auto) 2.3 Crawford # (Auto) 0.4 Eos # (Auto) 0.2 Baso # (Auto) 0.0 Immature Gran # (Auto) 0.03 H Absolute Nucleated RBC 0.00 Immature Gran % 0 Nucleated RBC % 0 TSH 2.28 Assessment & Plan Problem List (1) Morbid obesity with BMI of 50.0-59.9, adult: Problem details: Lovenox 40 daily x 6 to 8 weeks Status: Acute (2) Delivery by section: Problem details: Discharge instructions given Status: Acute (3) Arrest of dilation, delivered, current hospitalization: Status: Acute Time Spent With Patient Time: Total time spent is greater than 50% in coordination of care (as documented) at patient's floor/unit and/or counseling patient: Time with patient: less than 15 minutes
== END 2025-07-06 22:02 | disposition home or self-care (01) | DRG 540 ==
LOC: S4SX 07-03 12:01 → S4NX 07-04 02:09
PROVIDERS: Admitting Provider Obstetrics & Gynecology; Visit Provider Internal Medicine
PROC: 0UL70ZZ Occlusion of Bilateral Fallopian Tubes, Open Approach (ICD-10-PCS; CPT 59514; principal; 2025-07-04 01:30)
DX: O62.0 Primary inadequate contractions (principal); O99.214 Obesity complicating childbirth; E66.01 Morbid (severe) obesity due to excess calories; Z37.0 Single live birth; Z3A.39 39 weeks gestation of pregnancy; O99.824 Streptococcus B carrier state complicating childbirth; O99.02 Anemia complicating childbirth; D64.9 Anemia, unspecified; Z59.82 Transportation insecurity; I48.92 Unspecified atrial flutter; O99.42 Diseases of the circulatory system complicating childbirth
CPT/HCPCS: 36415; 71045; 76805; 80053; 81001; 83605; 83880; 84443; 84484; 85025; 85610; 85730; 86780; 86850; 86900; 86901; 86923; 87040; 87077; 87086; 87186; 93005; A4314; A4649; J0131; J0290; J0689; J1200; J1650; J1885; J2210; J2250; J2371; J2590; J2704; J2795; J2916; J3010; J3490; J7050; J7120; P9016; S0191; A9270

== ENCOUNTER 2025-07-07 04:02 | Emergency (ER) | payer MEDICAID, SELFPAY ==
[2025-07-07 04:04] VITALS: PULSE 107; BMI 49.4
[2025-07-07 04:06] VITALS: BP 115/84; PULSE 107; RESP 16; TEMP 36.7; O2SAT 99; BMI 49.4
[2025-07-07 04:15] VITALS: BP 125/78; PULSE 107; RESP 20; O2SAT 100
--- NOTE | 2025-07-07 04:23 | PD.EDANX ---
ED Anxiety RME/HPI General Chief Complaint: Arrhythmia/Palpitations Stated Complaint: PALPITATIONS Time Seen by Provider: 07/07/25 04:13 Arrival date/time: 07/07/25 04:02 RME / HPI RME / HPI narrative: DR. HAMMOND MAIN ED EVALUATION: 24 y/o female with Hx of Anxiety and Depression and Shx of presents to ED c/o hyperventilating and stating she, Isn't worth it , x Wednesday. Patient had her baby on 07/04/2025 via after not being able to progress naturally. She states that she has felt trapped during her stays at the hospital. Patient's [id number] called EMS.Patient also recently received a blood transfusion due to heavy vaginal bleeding following surgery and . No other concerns or complaints expressed at this time. Related Data Home Medications ?Medication ?Instructions ?Recorded ?Confirmed folic acid 1 mg tablet 1 mg PO DAILY 04/15/25 06/18/25 vits no.130-ferrous fum 1 tab PO DAILY 04/15/25 06/18/25 27 mg iron-folic acid 800 mcg tablet ( Vitamin) Previous Rx's ?Medication ?Instructions ?Recorded ferrous sulfate 325 mg (65 mg 325 mg PO QDAY #60 tabs 05/06/25 iron) tablet docusate sodium 100 mg capsule 100 mg PO BID 10 days #20 caps 07/04/25 hydrocodone 5 mg-acetaminophen 325 1 tab PO Q6H PRN Patient rated 07/04/25 mg tablet pain 7 to 8 10 days #15 tabs ibuprofen 800 mg tablet 800 mg PO Q8HR 10 days #30 tabs 07/04/25 enoxaparin 40 mg/0.4 mL 40 mg (0.4 mL) SCi QDAY #4 mL 07/06/25 subcutaneous syringe Allergies Allergy/AdvReac Type Severity Reaction Status Date / Time No Known Allergies Allergy Verified 07/03/25 18:53 Review of Systems Review of Systems Systems Reviewed: All systems reviewed, normal except as documented Past Medical History Past Medical History CARDIAC: Positive Cardiac Disorders ( ENLARGED HEART AND ARRHYTHMIA ) PSYCHO/SOCIAL: Positive Depression and Anxiety ED Exam Narrative Physical exam: Generally the patient is alert and in no obvious distress with a flat affect. Heart regular rate and rhythm, lungs clear to auscultation equal bilaterally, abdomen is obese and nontender with lower surgical wound, neurologic exam no focal motor deficits. No ataxia. Course Quality Measures none Vital Signs Vital signs: Vital Signs Temperature 98.1 F 07/07/25 04:06 Pulse Rate 107 H 07/07/25 04:06 Respiratory Rate 16 07/07/25 04:06 Blood Pressure 115/84 07/07/25 04:06 Pulse Oximetry (%) 99 07/07/25 04:06 Oxygen Delivery Method Room Air 07/07/25 04:06 Anxiety MDM Narrative MDM Narrative: Scribe Attestation: I, Vivienne Agrawal, am scribing for and in the presence of Dr. Hammond. Provider Notation: Although this document has been carefully reviewed, there may still be some phonetic and other typographical errors. These errors are purely grammatical due to imperfections in the software program and should not be construed in any way to? compromise the substance of the patient's medical care during this visit. I interpreted all labs. Patient may be suffering from depression. Patient denies suicidal ideation. She needs to discuss with her DUMB WAITER OPERATOR physician the needs to start an antidepressant. Patient is stable for discharge. Patient data External records reviewed:: [facility] previous records (Reviewed prior ED records from 06/16/25. Patient was seen for Epigastric abdominal pain during .) and EMS form Clinical information provided by:: patient, EMS and spouse Social determinants that could affect healthcare access:: mental health Patient has the following chronic illnesses:: Anxiety, Depression. How is presenting disease/condition affected by chronic disease/condition?: exacerbated by Evaluation data The following diagnostics were reviewed and interpreted by me:: lab results and EKG tracing(s) Lab and/or radiology exams considered but not ordered:: None Interpretation Summary: See MDM above. Medications / Prescriptions Medications or Prescriptions considered but not ordered:: None Medication administrations:: See above if any. Consultations Consultation(s) initiated? (list below): No Diagnosis Differential diagnosis anxiety: hyperventilation, panic disorder, acute anxiety and other (Post- depression) Most likely diagnosis given after review of the tests above:: None Admission Indicated Admission indicated?: not indicated Explain why admission is indicated or not indicated:: Patient does not meet admission criteria. Admission Request Was there a request for admission?: No Disposition Plan Disposition Plan: Discharge Discharge Attestation Discharge Attestation: The patient and all family members were given an opportunity to ask questions and understood the discharge instructions. Discharge instructions specifically effects, indications for sooner follow up or return to the emergency department, and the expected course of current diagnosis. Patient condition: Stable Discharge Plan Plan Patient Disposition: HOME (Self Care) Prescriptions/Referrals Prescriptions/Med Rec: No Action hydrocodone-acetaminophen 5-325 mg Tablet 1 tab PO Q6H MDD 4 tabs PRN (Reason: Patient rated pain 7 to 8) 10 Days Qty: 15 0RF docusate sodium 100 mg Capsule 100 mg PO BID 10 Days Qty: 20 0RF ibuprofen 800 mg tablet 800 mg PO Q8HR 10 Days Qty: 30 0RF enoxaparin 40 mg/0.4 mL Syringe 40 mg SCi QDAY Qty: 4 10RF folic acid 1 mg tablet 1 mg PO DAILY Patient Comments: TAKE 1 TABLET BY MOUTH ONCE DAILY Vitamin 27 mg iron- 800 mcg tablet 1 tab PO DAILY Patient Comments: TAKE 1 TABLET BY MOUTH ONCE DAILY ferrous sulfate 325 mg (65 mg iron) tablet 325 mg PO QDAY Qty: 60 0RF Problem List Clinical Impression: depression Patient/Caregiver Discharge Instructions Education Materials: Depression Additional Instructions: Discussed with your DUMB WAITER OPERATOR physician the need to start antidepressant medication. Return to ER for any suicidal ideation. Print Language: Romanian Stand Alone Forms: [employer] Award Info., Patient Portal Info Letter
[2025-07-07 05:26] LABS: Basophils # (Auto) 0.0 Thou/mm3 (0.0-0.2); Basophils % (Auto) 0 % (0-2.5); Eosinophils # (Auto) 0.2 Thou/mm3 (0.0-0.5); Eosinophils % (Auto) 2 % (0-10); Hematocrit 29.5 % (36.0-46.0); Hemoglobin 9.8 g/dL (12.0-16.0); Immature Granulocytes Auto 0.04 Thou/mm3 (0.00-0.00); Lymphocytes # (Auto) 2.3 Thou/mm3 (1.0-4.8); Lymphocytes % (Auto) 23 % (10-50); Mean Corpuscular HGB Conc 33.2 g/dl (31.0-37.0); Mean Corpuscular Hemoglobin 28.3 pg (25.0-35.0); Mean Corpuscular Volume 85 fL (80-100); Monocytes # (Auto) 0.6 Thou/mm3 (0.0-0.8); Monocytes % (Auto) 6 % (0-12); Neutrophils # (Auto) 7.1 Thou/mm3 (1.8-7.7); Neutrophils % (Auto) 69 % (37-80); Nucleated Red Blood Cell # 0.00 Thou/mm3 (0.00-0.00); Nucleated Red Blood Cell % 0 /100 WBC (0); Platelet Count 192 Thou/mm3 (140-440); RDW Standard Deviation 46.0 fL (36.4-46.3); Red Blood Count 3.46 Miln/mm3 (4.00-5.20); White Blood Count 10.3 Thou/mm3 (3.6-11.0)
[2025-07-07 05:49] LABS: Alanine Aminotransferase 19 U/L (10-49); Albumin, Serum 3.9 gm/dL (3.5-5.0); Albumin/Globulin Ratio 1.6 (1.2-2.2); Alkaline Phosphatase 132 U/L (46-116); Anion Gap 10 (7-16); Aspartate Amino Transferase 34 U/L (0-34); BUN/Creatinine Ratio 7 Ratio (12-20); Bilirubin,Total 0.6 mg/dL (0.3-1.2); Blood Urea Nitrogen < 5 mg/dL (9-23); Calcium 9.9 mg/dL (8.3-10.6); Calcium (Corrected) 10.0 mg/dL (8.5-10.1); Carbon Dioxide 24.5 mMol/L (20.0-31.0); Chloride 107 mMol/L (98-107); Creatinine (Component) 0.7 mg/dL (0.6-1.3); Estimated Creatinine Clearance 154.6 mL/min (>60); Globulin 2.5 gm/dL (2.3-3.5); Glucose 90 mg/dL (74-106); Osmolality,Calculated 278 (275-295); Potassium 4.5 mMol/L (3.4-5.1); Sodium 141 mMol/L (136-145); Total Protein 6.4 gm/dL (5.7-8.2); eGFR > 60 See Note
== END 2025-07-07 05:38 | disposition home or self-care (01) ==
PROVIDERS: Emergency Provider Emergency Medicine
DX: F53.0 Postpartum depression (principal)
CPT/HCPCS: 36415; 80053; 85025; 99282

== ENCOUNTER 2025-07-08 15:48 | Emergency (ER) | payer MEDICAID, SELFPAY ==
[2025-07-08 15:49] VITALS: BMI 45.5
--- NOTE | 2025-07-08 15:52 | EKG_ITS ---
[facility] Test Date: 2025-07-08 Pat Name: VITALY HENRIQUEZ Department: Room: - Gender: Female Alternative Dispute Resolution Mediator: : [id number] Requested By: ED Temporary Provider Order Number: [id number] Reading MD: ED Temporary Provider Measurements Intervals [place] Rate: 107 P: 47 TX: 156 QRS: 20 QRSD: 72 T: 7 QT: 300 QTc: 401 Interpretive Statements SINUS TACHYCARDIA MINIMAL VOLTAGE CRITERIA FOR LVH, CONSIDER NORMAL VARIANT [MEETS CRITERIA IN ONE OF: R(aVL), S(V1), R(V5), R(V5/V6)+S(V1)] ABNORMAL RHYTHM ECG Compared to ECG 07/04/2025 20:36:55 T-wave abnormality no longer present /store/S0/[id number]/[id number].pdf
[2025-07-08 15:54] VITALS: BP 124/77; PULSE 110; RESP 18; TEMP 37.1; O2SAT 97
--- NOTE | 2025-07-08 16:13 | PC.NURSE ---
PT CALLED BACK FOR RME. NO RESPONSE @[id number]. CHECKED OUTSIDE AND LOBBY
--- NOTE | 2025-07-08 16:45 | XR_ITS ---
Examination: CT brain head without contrast. 2-D sagittal coronal reconstructions Date and time of exam:July 08, 2025, 2054 hours INDICATIONS: July 04, 2025 with leg swelling CTDI: vol (mGy):55.3 DLP: (mGycm):1085 Technique: Multiple CT axial sections of the brain have been obtained, 5 mm slice thickness. Contrast has not been administered. 2-D sagittal, coronal reconstructions have been obtained Low dose protocols were performed. One or more of the following dose reduction techniques were used; automated exposure control, adjustment of the mA and/or KV according to patient size, use of iterative reconstruction technique. Findings: No significant ventricular enlargement. Intra-axial or extra-axial hemorrhage density is not seen. No mass effect or midline shift Basal cisterns are not remarkable. Fourth ventricle is midline. Cranial vault intact. Impression: Negative for acute hemorrhage, mass effect or midline shift As clinically warranted, consider brain MRI follow-up, stroke protocol
--- NOTE | 2025-07-08 16:45 | XR_ITS ---
Examination: CTA chest with intravenous contrast 2-D reconstructions 3-D reconstructions, vascular Date and time of exam: July 08, 2111 hours INDICATIONS: July 04, 2025 history shortness of breath chest pain CTDI: vol (mGy) 171 DLP: (mGycm) 725 Technique: Multiple axial sections of the thorax have been obtained. 3 mm slice thickness, from below the hemidiaphragms to above the apices of the lungs. Mediastinal and lung density settings have been obtained. 2-D sagittal and coronal reconstructions. 3-D angiographic renderings, 3-D volume renderings, 3D post processing, vascular maximum intensity projections obtained. Contrast administered is 95 cc Isovue 370. Low dose protocols were performed. One or more of the following dose reduction techniques were used; automated exposure control, adjustment of the mA and/or KV according to patient size, use of iterative reconstruction technique. Findings: Contrast opacification of the pulmonary arteries is not optimal, contrast bolus timing error No gross filling defects Mild enlargement left ventricle No lobar pneumonia or pulmonary edema Moderate vascular congestion IMPRESSION: Technically severely limited study No gross pulmonary artery emboli
--- NOTE | 2025-07-08 16:45 | XR_ITS ---
Examination: CTA carotids with intravenous contrast CTA brain, head with intravenous contrast. 2-D sagittal, coronal reconstructions. 3-D reconstructions. Exam date and time: July 08, 2025, 2103 hours INDICATION: Blurred vision leg swelling July 04, 2025 CTDI: vol (mGy) 61.1 DLP: (mGycm) 500 Technique: Multiple CTA axial brain, head carotid images post intravenous contrast injection 100 cc, Isovue-370. 2-D sagittal, coronal reconstructions. 3-D reconstructions, 3-D post processing including vascular maximum intensity projection images. Low dose protocols were performed. One or more of the following dose reduction techniques were used; automated exposure control, adjustment of the mA and/or KV according to patient size, use of iterative reconstruction technique. Findings: No common carotid gallbladder bifurcation or internal carotid artery stenoses Codominant vertebral arteries in the neck with no significant stenoses Intracranial vertebral arteries, basilar artery posterior cerebral branches do fill Juxtasellar internal carotid arteries M1 segments middle cerebral arteries and middle cerebral artery trifurcation vessels and anterior cerebral vessels fill with no large vessel occlusions IMPRESSION: No significant neck arterial stenoses No large vessel cerebral arterial corrections Consider brain MRI MRA, stroke protocol, without contrast follow-up
--- NOTE | 2025-07-08 16:53 | PD.EDRME ---
Rapid Medical Screening Exam RME Arrival date/time: 07/08/25 15:48 Chief Complaint: Chest Pain Time Seen by Provider: 07/08/25 16:32 Vital signs: Vital Signs Temperature 98.7 F 07/08/25 15:54 Pulse Rate 110 H 07/08/25 15:54 Respiratory Rate 18 07/08/25 15:54 Blood Pressure 124/77 07/08/25 15:54 Pulse Oximetry (%) 97 07/08/25 15:54 Oxygen Delivery Method Room Air 07/08/25 15:54 Vital signs reviewed by provider: Yes RME Narrative: Patient is a 24-year-old female approximately 5 days is in emergency department with concerns for persistent chest pain, lower extremity swelling as well as blurry vision since delivery. Patient states that she had a complicated approximately 5 days ago. Patient had a prior because of bradycardia. Patient required a blood transfusion during her recent hospitalization. Patient states that she had an epidural and then needed to have general anesthesia and after the delivery she went from being able to see normally to have it blurry vision requiring her to get really close to things and people in her to be able to see them. Patient is also complaining that she has had chest pain and progressive lower extremity swelling since the delivery as well. Denies fevers chills nausea vomiting abdominal pain. Patient has been taking a blood thinner at home and has been passing large clots of her vagina. Patient states that she breast-feeds and formula feeds baby and the baby is doing well at home.
[2025-07-08 17:24] VITALS: BP 129/71; PULSE 108; RESP 18; TEMP 37.8; O2SAT 99
[2025-07-08 17:28] LABS: Basophils # (Auto) 0.0 Thou/mm3 (0.0-0.2); Basophils % (Auto) 0 % (0-2.5); Eosinophils # (Auto) 0.2 Thou/mm3 (0.0-0.5); Eosinophils % (Auto) 2 % (0-10); Hematocrit 27.0 % (36.0-46.0); Hemoglobin 8.9 g/dL (12.0-16.0); Immature Granulocytes Auto 0.03 Thou/mm3 (0.00-0.00); Lymphocytes # (Auto) 2.1 Thou/mm3 (1.0-4.8); Lymphocytes % (Auto) 25 % (10-50); Mean Corpuscular HGB Conc 33.0 g/dl (31.0-37.0); Mean Corpuscular Hemoglobin 28.1 pg (25.0-35.0); Mean Corpuscular Volume 85 fL (80-100); Monocytes # (Auto) 0.4 Thou/mm3 (0.0-0.8); Monocytes % (Auto) 5 % (0-12); Neutrophils # (Auto) 5.7 Thou/mm3 (1.8-7.7); Neutrophils % (Auto) 68 % (37-80); Nucleated Red Blood Cell # 0.00 Thou/mm3 (0.00-0.00); Nucleated Red Blood Cell % 0 /100 WBC (0); Platelet Count 208 Thou/mm3 (140-440); RDW Standard Deviation 45.9 fL (36.4-46.3); Red Blood Count 3.17 Miln/mm3 (4.00-5.20); White Blood Count 8.5 Thou/mm3 (3.6-11.0)
[2025-07-08 17:30] LABS: Collection Type, Urine Clean Catch
[2025-07-08 17:30] LABS: Alanine Aminotransferase 17 U/L (10-49); Albumin, Serum 3.7 gm/dL (3.5-5.0); Albumin/Globulin Ratio 1.6 (1.2-2.2); Alkaline Phosphatase 117 U/L (46-116); Anion Gap 10 (7-16); Aspartate Amino Transferase 22 U/L (0-34); BUN/Creatinine Ratio 12 Ratio (12-20); Bilirubin,Total 0.7 mg/dL (0.3-1.2); Blood Urea Nitrogen 7 mg/dL (9-23); Calcium 9.4 mg/dL (8.3-10.6); Calcium (Corrected) 9.6 mg/dL (8.5-10.1); Carbon Dioxide 23.6 mMol/L (20.0-31.0); Chloride 108 mMol/L (98-107); Creatinine (Component) 0.6 mg/dL (0.6-1.3); Estimated Creatinine Clearance 198.0 mL/min (>60); Globulin 2.3 gm/dL (2.3-3.5); Glucose 89 mg/dL (74-106); Osmolality,Calculated 280 (275-295); Potassium 3.9 mMol/L (3.4-5.1); Sodium 142 mMol/L (136-145); Total Protein 6.0 gm/dL (5.7-8.2); eGFR > 60 See Note
[2025-07-08 17:34] LABS: INR 0.9 (0.9-1.3); Prothrombin Time 10.3 Seconds (9.0-12.2)
[2025-07-08 17:52] VITALS: TEMP 37.2
[2025-07-08 18:00] LABS: Bacteria,Urine Rare; Bilirubin,Urine Negative (Negative); Blood,Urine 3+ (Negative); Clarity,Urine Turbid (Clear/Hazy); Color,Urine Lt-Brown (Lt Yel-Yel); Culture Indicated,Urine Contaminated; Glucose, Urine Negative (Negative); Ketones,Urine Negative (Negative); Leukocyte Esterase,Urine Positive (Negative); Nitrite,Urine Negative (Negative); PH,Urine 6.5 (5.0-7.0); Protein,Urine 1+ (Neg - Trace); RBC,Urine 58 /hpf (0-3); Specific Gravity,Urine 1.012 (1.001-1.035); Squamous Epithelial Cell,Urine 11 /hpf (0-5); Urobilinogen,Urine Negative mg/dL (0.0-1.0); WBC,Urine 83 /hpf (0-5)
--- NOTE | 2025-07-08 18:04 | EDNOTE_ITS ---
ED Chest Pain RME/HPI General Chief Complaint: Chest Pain Stated Complaint: CXP/LEG SWELLING S/P CSECTION 07/04/25 Time Seen by Provider: 07/08/25 16:32 Source: patient Arrival date/time: 07/08/25 15:48 Mode of arrival: ambulatory Limitations: no limitations RME / HPI RME / HPI narrative: Patient is a 24-year-old female approximately 5 days is in e mergency department with concerns for persistent chest pain, shortness of breath, palpitations, as well as blurry vision that doubled 1 day after her C- section. Patient states that she had a complicated approximately 5 days ago. Patient had a prior because of bradycardia. Patient required a blood transfusion during her recent hospitalization. Patient states that she had an epidural and then needed to have general anesthesia and after the delivery she went from being able to see normally to have it blurry vision requiring her to get really close to things and people in her to be able to see them. Patient is also complaining that she has had chest pain and progressive lower extremity swelling that started 2 days ago. Denies fevers chills nausea vomiting abdominal pain. Patient has been taking a blood thinner at home and has been passing large clots of her vagina. Patient states that she breast- feeds and formula feeds baby and the baby is doing well at home. Related Data On Oral Contraceptives: No Home Medications ?Medication ?Instructions ?Recorded ?Confirmed folic acid 1 mg tablet 1 mg PO DAILY 04/15/2506/18 vits no.130-ferrous fum 1 tab PO DAILY 06/18/25 27 mg iron-folic acid 800 mcg tablet ( Vitamin) Previous Rx's ?Medication ?Instructions ?Recorded ferrous sulfate 325 mg (65 mg 325 mg PO QDAY #60 tabs 05/06/25 iron) tablet docusate sodium 100 mg capsule 100 mg PO BID 10 days # 20 caps 07/04/25 hydrocodone 5 mg-acetaminophen 325 1 tab PO Q6H PRN Pa niknt rated 07/04/25 mg tablet pain 7 to 8 10 days #15 tabs ibuprofen 800 mg tablet 800 mg PO Q8HR 10 days #30 t abs 07/04/25 enoxaparin 40 mg/0.4 mL 40 mg (0.4 mL) SCi QDAY #4 m L 07/06/25 subcutaneous syringe cephalexin 500 mg capsule 500 mg PO QID 7 days #28 cap s 07/08/25 Allergies Allergy/AdvReac Type Severity Reaction Status Date / Time No Known Allergies Allergy Verified 07/08/25 15:51 Review of Systems Review of Systems Systems Reviewed: All systems reviewed, normal except as documented ED Exam General Limitations: Present no limitations General appearance: Present alert and in no apparent distress Head Head exam: Present atraumatic Eye Eye exam: Present normal appearance, PERRL, EOMI and other (Intraocular pressures were checked, right side was 18, left side is 19) ENT ENT exam: Present normal exam, normal oropharynx and mucous membranes moist Neck Neck exam: Present normal inspection, full ROM and trachea midline Chest Chest inspection: Present normal inspection and symmetric chest wall rise Respiratory Respiratory exam: Present normal lung sounds bilaterally Cardiovascular Cardiovascular exam: Present regular rate, normal rhythm and normal heart sounds Abdominal Exam Abdominal exam: Present soft and normal bowel sounds Extremities Exam Extremities exam: Present normal inspection and full ROM Back Exam Back exam: Present normal inspection and full ROM Neurological Exam Neurological exam: Present alert, oriented X3 and CN II-XII intact Psychiatric Psychiatric exam: Present normal affect and normal mood Skin Skin exam: Present warm, dry, intact and normal color Course Quality Measures none Orders Category Date Time Status CT Screening NOW Care 07/08/25 16:46 Active EKG (ED ONLY) *Do not use* NOW Care 07/08/25 15:52 Completed MRI Screening NOW Care 07/08/25 16:49 Active MRI Screening NOW Care 07/08/25 16:50 Completed Visual Acuity NOW Care 07/08/25 18:[address] angio carotid w head w Stat Exams 07/08/25 16:[address] angio chest Stat Exams 07/08/25 16:[address] head/brain wo con Stat Exams 07/08/25 16:45 Completed EKG (ED Only) Stat Exams 07/08/25 15:52 Draft MR head/brain wo con Stat Exams 07/08/25 Ordered BNP [B-Type Natriuretic Peptide] Stat Lab 07/08/25 17:04 Completed CBC Stat Lab 07/08/25 17:04 Completed CMP [Comprehensive Metabolic Panel] Stat Lab 07/08/25 17:04 Completed HCG,Qualitative Serum Stat Lab 07/08/25 17:04 Completed PT [Prothrombin Time with INR] Stat Lab 07/08/25 17:04 Completed Troponin I Stat Lab 07/08/25 17:04 Completed Type and Screen Stat Lab 07/08/25 17:04 Completed UA, C/S IF [Urinalysis, C/S if Indicated] Stat Lab 07/08/25 17:26 Completed Proparacaine Op Sarai 0.5% [Alcaine Op Sarai 0.5%] Med 07/08/25 18:08 Discontinued See Dose Instructions BOTH EYES X1 ONE Vital Signs Vital signs: Vital Signs Temperature 98.7 F 07/08/25 15:54 Pulse Rate 110 H 07/08/25 15:54 Respiratory Rate 18 07/08/25 15:54 Blood Pressure 124/77 07/08/25 15:54 Pulse Oximetry (%) 97 07/08/25 15:54 Oxygen Delivery Method Room Air 07/08/25 15:54 Chest Pain MDM Narrative MDM Narrative:: Patient is a 24-year-old female approximately 5 days is in emergency department with concerns for persistent chest pain, shortness of breath, palpitations, as well as blurry vision that doubled 1 day after her C- section. Patient states that she had a complicated approximately 5 days ago. Patient had a prior because of bradycardia. Patient required a blood transfusion during her recent hospitalization. Patient states that she had an epidural and then needed to have general anesthesia and after the delivery she went from being able to see normally to have it blurry vision requiring her to get really close to things and people in her to be able to see them. Patient is also complaining that she has had chest pain and progressive lower extremity swelling that started 2 days ago. Denies fevers chills nausea vomiting abdominal pain. Patient has been taking a blood thinner at home and has been passing large clots of her vagina. Patient states that she breast- feeds and formula feeds baby and the baby is doing well at home. On exam, patient is nontoxic-appearing in no visible distress. Vital signs are stable. Her neuroexam is benign. She has no tachypnea. Lung sounds are clear bilaterally. An extensive workup was obtained and will. Patient has no leukocytosis noted anemia with a hemoglobin of 8.5 and 27.0 for her hematocrit. PT/INR unremarkable. Metabolic panel was obtained which reveals no significant metabolic derangement. Troponin is negative. BNP is slightly elevated at 133. Urinalysis from 6 leukocytes, erythrocytes, except squamous epithelial cells. Imaging studies were obtained, patient had a CTa of the head, neck, and chest. No thrombus or pneumonia was noted. EKG revealed sinus tachycardia [address] changes or dynamic T waves. We discussed her workup in detail. There is an MRI of the brain that is pending. This will not be obtained tonight. We discussed options including hospital mission for the MRI. Patient would like to leave the emergency room and states she will come back tomorrow early in the morning to obtain the MRI here in the emergency room. She does agree to return sooner at any time for changes. Will place her on antibiotics for possible urinary tract infection. Patient data External records reviewed:: [facility] previous records Clinical information provided by:: patient and spouse Social determinants that could affect healthcare access:: none Patient has the following chronic illnesses:: n/a How is presenting disease/condition affected by chronic disease/condition?: no chronic disease Evaluation data The following diagnostics were reviewed and interpreted by me:: lab results, radiology exam(s) and EKG tracing(s) Lab and/or radiology exams considered but not ordered:: n/a Interpretation Summary: Possible urinary tract infection, workup was otherwise unremarkable Medications / Prescriptions Medications or Prescriptions considered but not ordered:: n/a Medication administrations:: Medication Administration History Discontinued Medications Proparacaine HCl (Proparacaine Op Sarai 0.5% 15 Ml Btl) 0 drop BOTH EYES X1 ONE Stop: 07/08/25 18:09 Last Admin: 07/08/25 20:26 Dose: 1 drop Documented By: KEENAN Comments: Administered by PA See above Consultations Consultation(s) initiated? (list below): No Diagnosis Most likely diagnosis given after review of the tests above:: UTI, vision changes, palpitations, chest pain Admission Indicated Admission indicated?: not indicated Admission Request Was there a request for admission?: No Disposition Plan Disposition Plan: Discharge Discharge Attestation Discharge Attestation: The patient and all family members were given an opportunity to ask questions an d understood the discharge instructions. Discharge instructions specifically effects, indications for sooner follow up or return to the emergency department, and the expected course of current diagnosis. Patient condition: Stable Discharge Plan Plan Patient Disposition: HOME (Self Care) Patient condition on transfer: Stable Prescriptions/Referrals Prescriptions/Med Rec: New cephalexin 500 mg capsule 500 mg PO QID 7 Days Qty: 28 0RF No Action hydrocodone-acetaminophen 5-325 mg Tablet 1 tab PO Q6H MDD 4 tabs PRN (Reason: Patient rated pain 7 to 8) 10 Days Qty: 15 0RF docusate sodium 100 mg Capsule 100 mg PO BID 10 Days Qty: 20 0RF ibuprofen 800 mg tablet 800 mg PO Q8HR 10 Days Qty: 30 0RF enoxaparin 40 mg/0.4 mL Syringe 40 mg SCi QDAY Qty: 4 10RF folic acid 1 mg tablet 1 mg PO DAILY Patient Comments: TAKE 1 TABLET BY MOUTH ONCE DAILY Vitamin 27 mg iron- 800 mcg tablet 1 tab PO DAILY Patient Comments: TAKE 1 TABLET BY MOUTH ONCE DAILY ferrous sulfate 325 mg (65 mg iron) tablet 325 mg PO QDAY Qty: 60 0RF Referrals: Paul Lou MD [Primary Care Provider] - In 1 week Problem List Clinical Impression: Chest pain, Changes in vision Patient/Caregiver Discharge Instructions Additional Instructions: - Your workup thus far unremarkable/normal possible urinary tract infection. Will place you antibiotics for this. Please increase oral hydration and use the antibiotic every 6 hours as prescribed. - Your workup is pending, a MRI of your brain has been ordered but is not available tonight. You have opted to leave the emergency room and return tomorrow to try to obtain this. I do believe this is reasonable, however you will need to return here sooner anytime for any worsening changes overnight. Print Language: Kenyan Stand Alone Forms: Tiffanie Award Info., Patient Portal Info Letter
[2025-07-08 18:21] LABS: Troponin I < 0.020 ng/mL (0.0-0.045)
[2025-07-08 18:24] LABS: B-Type Natriuretic Peptide 133 pg/mL (0-100)
[2025-07-08 19:30] VITALS: BP 124/60; PULSE 92; RESP 20; TEMP 37.2; O2SAT 100
[2025-07-08] MEDS: PROPARACAINE OP SOL 0.5% 15 ML BTL BOTH EYES (20:26)
[2025-07-08 20:47] LABS: HCG,Qualitative Serum Positive
[2025-07-08 22:48] VITALS: BP 157/104; PULSE 98; RESP 21; TEMP 37.1; O2SAT 100
== END 2025-07-08 22:57 | disposition home or self-care (01) ==
PROVIDERS: Physician Assistant Medical; Emergency Provider Emergency Medicine; PCP Family Medicine
DX: O90.89 Other complications of the puerperium, not elsewhere classified (principal); R07.9 Chest pain, unspecified; H53.8 Other visual disturbances; R00.2 Palpitations; R06.02 Shortness of breath; M79.89 Other specified soft tissue disorders; O90.81 Anemia of the puerperium; R00.0 Tachycardia, unspecified
CPT/HCPCS: 36415; 70450; 70496; 70498; 71275; 80053; 81001; 83880; 84484; 84703; 85025; 85610; 86850; 86900; 86901; 93005; 99284; A4649; Q9967

== ENCOUNTER 2025-07-09 12:07 | Emergency (ER) | payer MEDICAID, SELFPAY ==
[2025-07-09 12:09] VITALS: BMI 52.8
--- NOTE | 2025-07-09 12:20 | PC.NURSE ---
no answer in lobby when called for room in ed
--- NOTE | 2025-07-09 12:41 | PC.NURSE ---
no answer in lobby when called for room in ed
--- NOTE | 2025-07-09 12:49 | PD.EDRME ---
Rapid Medical Screening Exam RME Arrival date/time: 07/09/25 12:07 Chief Complaint: General Adult/Misc Complain Time Seen by Provider: 07/09/25 12:48 RME Narrative: Patient is a 24-year-old female who is in the emerged ferment 6 days for follow-up assessment. Patient was seen in the emergency department yesterday, MRI was not available overnight and so stated that she would come back in the morning for an MRI. I saw the patient, states that her symptoms are unchanged. Would like to get the MRI performed today.
--- NOTE | 2025-07-09 13:19 | PC.NURSE ---
no answer in lobby when called for room in ed
== END 2025-07-09 13:20 | disposition left against medical advice (07) ==
PROVIDERS: Emergency Provider Emergency Medicine
DX: Z39.2 Encounter for routine postpartum follow-up (principal); Z53.29 Procedure and treatment not carried out because of patient's decision for other reasons
CPT/HCPCS: 99283

== ENCOUNTER 2025-07-23 18:01 | Emergency (ER) | payer MEDICAID, SELFPAY ==
[2025-07-23 18:22] VITALS: BP 117/80; PULSE 113; RESP 18; TEMP 37.1; O2SAT 99; BMI 47.5
--- NOTE | 2025-07-23 18:32 | EDNOTE_ITS ---
ED Skin Abcess FB-RME/HPI General Chief complaint: General Adult/Misc Complain Stated complaint: LUMP AT INCISION FROM C.SECTION, BACK PAIN Time Seen by Provider: 07/23/25 18:04 Arrival date/time: 07/23/25 18:01 This is a case of 24-year-old female with no medical history came in in the emergency room due to painful lump on the abdominal wall near the suprapubic area with some redness and swelling for 3 days patient had section June 2025 persistence of the symptoms this patient decided to start consult here in the emergency room Limitations: no limitations Related Data Home Medications ?Medication ?Instructions ?Recorded ?Confirmed folic acid 1 mg tablet 1 mg PO DAILY 04/15/2506/18 vits no.130-ferrous fum 1 tab PO DAILY 06/18/25 27 mg iron-folic acid 800 mcg tablet ( Vitamin) Previous Rx's ?Medication ?Instructions ?Recorded ferrous sulfate 325 mg (65 mg 325 mg PO QDAY #60 tabs 05/06/25 iron) tablet enoxaparin 40 mg/0.4 mL 40 mg (0.4 mL) SCi QDAY #4 m L 07/06/25 subcutaneous syringe cephalexin 500 mg tablet 500 mg PO QID #40 tabs 07/23 sulfamethoxazole 800 1 tab PO Q12H #20 tabs 07/23 mg-trimethoprim 160 mg tablet (Bactrim DS) Allergies Allergy/AdvReac Type Severity Reaction Status Date / Time No Known Allergies Allergy Verified 07/23/25 18:05 Review of Systems Review of Systems Systems Reviewed: All systems reviewed, normal except as documented Constitutional Constitutional: Reports system reviewed and no additional complaints, except as documented and Reports as per HPI Cardiovascular Cardiovascular: Reports system reviewed and no additional complaints, except as documented and Reports as per HPI Respiratory Respiratory: Reports system reviewed and no additional complaints, except as documented and Reports as per HPI Gastrointestinal Gastrointestinal: Reports system reviewed and no additional complaints, except as documented and Reports as per HPI Neurologic Neurologic: Reports system reviewed and no additional complaints, except as documented and Reports as per HPI Past Medical History Past Medical History NEUROLOGIC: Negative Neurological Disorders or Seizures CARDIAC: Negative Cardiac Disorders, Angina, Aneurysm or Congestive Heart Failure RESPIRATORY: Negative Chronic Obstructive Pulmonary Disease (COPD) or Asthma GASTROINTESTINAL: Negative Gastrointestinal Disorders GENITOURINARY: Negative Genitourinary Disorders or Renal Disease REPRODUCTIVE: Negative Pelvic Inflammatory Disease MUSCULOSKELETAL: Negative Musculoskeletal Disorders ENDOCRINE: Negative Endocrine Disorders, Diabetes Mellitus Type 1 or Diabetes Mellitus Type 2 HEMATOLOGIC: Negative Blood Disorders or Sickle Cell Disease PSYCHO/SOCIAL: Positive Depression and Anxiety OTHER HISTORY: Negative Autoimmune Disease, Blood Transfusions, Blood Transfusion Reaction, Anesthesia Reactions, Organ Transplant, MRSA, VRSA or Cancer Family History FAMILY HISTORY: Negative Family Psychiatric Problems, Family Respiratory Disorders, Family Cardiac Disorders, Family Gastrointestinal Problems, Family Cancer, Family Surgery or Family Anesthesia Reaction Surgical History SURGICAL: Negative Cardiac Surgery, Endocrine Surgery, Ear Surgery, Abdominal Surgery, Nephrectomy, Joint Replacement, Neurologic Surgery, Section or Organ Transplant Social History SMOKING STATUS: Never smoker SUBSTANCE USE: does not use ED Exam Narrative Physical exam: Patient is awake alert oriented not in distress nontoxic looking well-hydrated well-nourished General Limitations: Present no limitations General appearance: Present alert and in no apparent distress Head Head exam: Present atraumatic, normocephalic and normal inspection Eye Eye exam: Present normal appearance, PERRL and EOMI ENT ENT exam: Present normal exam, normal oropharynx and mucous membranes moist Neck Neck exam: Present normal inspection, full ROM and trachea midline; Absent tenderness, meningismus, lymphadenopathy or thyromegaly Chest Chest inspection: Present normal inspection and symmetric chest wall rise; Absent tenderness, rash or abscess Respiratory Respiratory exam: Present normal lung sounds bilaterally; Absent respiratory distress, wheezes, stridor, accessory muscle use or prolonged expiratory phase Cardiovascular Cardiovascular exam: Present regular rate, normal rhythm and normal heart sounds; Absent bradycardia, tachycardia, irregular rhythm, systolic murmur or diastolic murmur Abdominal Exam Abdominal exam: Present soft and normal bowel sounds; Absent distention, tenderness, guarding, rebound, rigidity, diminished bowel sounds, hyperactive bowel sounds, hypoactive bowel sounds or organomegaly Extremities Exam Extremities exam: Present normal inspection and full ROM Back Exam Back exam: Present normal inspection and full ROM Neurological Exam Neurological exam: Present alert, oriented X3, CN II-XII intact, normal gait and reflexes normal; Absent motor sensory deficit Psychiatric Psychiatric exam: Present normal affect and normal mood Skin Skin exam: Present warm, dry, intact, normal color and other (Noted 2 cm lump on the abdominal wall suprapubic area no discharge with mild to moderate redness and mild swelling tender and hard to touch no streak redness to suggest cellulitis) Course Quality Measures none Orders Category Date Time Status cefTRIAXone [Rocephin] 1,000 mg Med 07/23/25 18:30 Discontinued Lidocaine 1% 20 ml [Xylocaine 1% 20 ML] 2.1 ml IM X1 Vital Signs Vital signs: Vital Signs Temperature 98.8 F 07/23/25 18:22 Pulse Rate 113 H 07/23/25 18:22 Respiratory Rate 18 07/23/25 18:22 Blood Pressure 117/80 07/23/25 18:22 Pulse Oximetry (%) 99 07/23/25 18:22 Oxygen Delivery Method Room Air 07/23/25 18:22 Oxygen saturation is 99% in room air Skin / Abscess / Foreign Body MDM Narrative MDM Narrative:: This is a case of 24-year-old female with no medical history came in in the emergency room due to painful lump on the abdominal wall near the suprapubic area with some redness and swelling for 3 days patient had section June 2025 persistence of the symptoms this patient decided to start consult here in the emergency room physical examination patient is awake alert oriented not in distress nontoxic looking well-hydrated well-nourished noted painful lump approximately 2 cm on the suprapubic area abdominal wall tender to touch hard to touch mild swelling and redness no fluctuance not indurated no cellulitis the rest of the physical examination and neurological exam is normal the incision were intact and clean no signs and symptoms of infection patient was given ceftriaxone IM here in the emergency room and was discharged with cephalexin and Bactrim patient states that her child can switch it to a bottle- fed formula. She will follow-up with PCP in 2 days for evaluation for any worsening symptoms or return to the emergency room immediately or call 911 Patient was discharged with comfortable condition walking with stable gait. Patient verbalized no further complains explained diagnosis and answered patient question. Patient is comfortable with the proposed management plan including the need to follow up with his/her primary care physician and any specialist if applicable Discussed patient for any urgent condition or worsening sx, He/She needed to go to emergency room immediately or call 911. Patient acknowledge the responsibility to follow up as instructed and to monitor her/his symptoms. For any persistence of the symptoms for more than 3-5 days return precaution advised. Discussed the result of the test and was given printed discharge instruction Patient data External records reviewed:: [facility] previous records Clinical information provided by:: patient Social determinants that could affect healthcare access:: none Patient has the following chronic illnesses:: None How is presenting disease/condition affected by chronic disease/condition?: no chronic disease Evaluation data The following diagnostics were reviewed and interpreted by me:: other (specify) Lab and/or radiology exams considered but not ordered:: None Interpretation Summary: None Medications / Prescriptions Medications or Prescriptions considered but not ordered:: Given Medication administrations:: Medication Administration History Discontinued Medications Ceftriaxone Sodium 1,000 mg/ (Lidocaine HCl 2.1 ml) 0 mg IM X1 ONE Stop: 07/23/25 18:31 Last Admin: 07/23/25 18:41 Dose: 1,000 mg Documented By: CN Given Consultations Consultation(s) initiated? (list below): No Diagnosis Skin/Abscess Differential Diagnosis: abscess of skin or subcutaneous tissue and cellulitis Most likely diagnosis given after review of the tests above:: Abscess Admission Indicated Admission indicated?: not indicated Explain why admission is indicated or not indicated:: Not indicated Admission Request Was there a request for admission?: No Disposition Plan Disposition Plan: Discharge Discharge Attestation Discharge Attestation: The patient and all family members were given an opportunity to ask questions and understood the discharge instructions. Discharge instructions specifically effects, indications for sooner follow up or return to the emergency department, and the expected course of current diagnosis. Patient condition: Stable Discharge Plan Plan Patient Disposition: HOME (Self Care) Patient condition on transfer: Stable Prescriptions/Referrals Prescriptions/Med Rec: New cephalexin 500 mg tablet 500 mg PO QID Qty: 40 0RF sulfamethoxazole-trimethoprim [Bactrim DS] 800-160 mg tablet 1 tab PO Q12H Qty: 20 0RF No Action enoxaparin 40 mg/0.4 mL Syringe 40 mg SCi QDAY Qty: 4 10RF folic acid 1 mg tablet 1 mg PO DAILY Patient Comments: TAKE 1 TABLET BY MOUTH ONCE DAILY Vitamin 27 mg iron- 800 mcg tablet 1 tab PO DAILY Patient Comments: TAKE 1 TABLET BY MOUTH ONCE DAILY ferrous sulfate 325 mg (65 mg iron) tablet 325 mg PO QDAY Qty: 60 0RF Problem List Clinical Impression: Abdominal wall abscess Patient/Caregiver Discharge Instructions Education Materials: ED Abscess Antibiotic ... Additional Instructions: Follow-up with your primary care physician in 2 days for reevaluation recurrence persistent worsening symptoms or any emergent concern call 911 or go to the nearest emergency room return to the emergency room in 2 days for reevaluation and possible incision and drainage keep the wound clean and dry finish the course of antibiotic Print Language: Colombian Stand Alone Forms: Tiffanie Award Info., Patient Portal Info Letter PA/TABLET MAKING MACHINE OPERATOR HELPER Supervising Physician PA/TABLET MAKING MACHINE OPERATOR HELPER Supervising Physician: Dr. Mora
[2025-07-23] MEDS: cefTRIAXone 1,000 MG, LIDOCAINE 1% 20 ML 2.1 ML IM (18:41)
[2025-07-23 19:02] VITALS: PULSE 80; RESP 18; O2SAT 100
== END 2025-07-23 19:02 | disposition home or self-care (01) ==
LOC: SERX 18:48
PROVIDERS: Emergency Provider Emergency Medicine; PCP Family Medicine
DX: O86.01 Infection of obstetric surgical wound, superficial incisional site (principal); L02.211 Cutaneous abscess of abdominal wall
CPT/HCPCS: 96372; 99282; J0696; J3490

== ENCOUNTER 2025-09-01 16:24 | Emergency (ER) | payer MEDICAID, SELFPAY ==
[2025-09-01 16:25] VITALS: BMI 44.9
[2025-09-01 17:27] VITALS: BP 146/89; PULSE 87; RESP 19; TEMP 36.8; O2SAT 96
--- NOTE | 2025-09-01 17:36 | XR_ITS ---
Examination: Foot, left, 3 views Technique: AP, oblique, lateral views foot, 3 views Date and time of exam: September 01, 2025, 1735 hours INDICATIONS: Left foot pain beginning 2 weeks ago FINDINGS: No fracture or dislocation. No foreign body. No cortical bone destruction. Bony spur off the dorsal surface of the talus IMPRESSION: 8 mm bony spur off the dorsal surface of the talus
--- NOTE | 2025-09-01 17:36 | XR_ITS ---
EXAMINATION: Ankle, left 2 views. Examination: Left ankle 3 views AP and lateral Date and time: September 01, 2025, 1740 hours INDICATIONS: Twisting injury to the ankle 2 weeks ago with ankle pain. FINDINGS: 8 mm bony spur off the dorsal surface of the talus No ankle fracture or dislocation IMPRESSION: 8 mm bony spur off the dorsal surface of the talus
--- NOTE | 2025-09-01 17:37 | PD.EDRME ---
Rapid Medical Screening Exam RME Arrival date/time: 09/01/25 16:24 This is a 24-year-old female that comes into the emergency room with complaints of left ankle pain. Patient states she sprained her ankle last year and she was given crutches at the time and pain medications and felt better. Patient states for the last week she has been having a lot of pain to her left ankle she does not know if she reinjured it. I have greeted and performed a focused initial assessment of this patient. Initial appropriate labs ordered at this time. A comprehensive ED assessment and evaluation of the patient and analysis of all test and completion of medical decision making process will be conducted by additional ED provider. Chief Complaint: Ankle/Foot Injury Time Seen by Provider: 09/01/25 17:30 Vital signs: Vital Signs Temperature 98.3 F 09/01/25 17:27 Pulse Rate 87 09/01/25 17:27 Respiratory Rate 19 09/01/25 17:27 Blood Pressure 146/89 H 09/01/25 17:27 Pulse Oximetry (%) 96 09/01/25 17:27 Oxygen Delivery Method Room Air 09/01/25 17:27
--- NOTE | 2025-09-01 18:20 | PD.EDANKLE ---
Lower Extremity Injury RME/HPI General Chief Complaint: Ankle/Foot Injury Stated Complaint: L ANKLE PAIN X2 WEEKS Time Seen by Provider: 09/01/25 17:30 Arrival date/time: 09/01/25 16:24 RME / HPI RME / HPI Narrative: 09/01/25 16:24 This is a 24-year-old female that comes into the emergency room with complaints of left ankle pain. Patient states she sprained her ankle last year and she was given crutches at the time and pain medications and felt better. Patient states for the last week she has been having a lot of pain to her left ankle she does not know if she reinjured it. I have greeted and performed a focused initial assessment of this patient. Initial appropriate labs ordered at this time. A comprehensive ED assessment and evaluation of the patient and analysis of all test and completion of medical decision making process will be conducted by additional ED provider. See [facility] for Dr. Mitchell's HPI Documentation. Related Data Home Medications ?Medication ?Instructions ?Recorded ?Confirmed folic acid 1 mg tablet 1 mg PO DAILY 04/15/25 06/18/25 vits no.130-ferrous fum 1 tab PO DAILY 04/15/25 06/18/25 27 mg iron-folic acid 800 mcg tablet ( Vitamin) Previous Rx's ?Medication ?Instructions ?Recorded ferrous sulfate 325 mg (65 mg 325 mg PO QDAY #60 tabs 05/06/25 iron) tablet enoxaparin 40 mg/0.4 mL 40 mg (0.4 mL) SCi QDAY #4 mL 07/06/25 subcutaneous syringe cephalexin 500 mg tablet 500 mg PO QID #40 tabs 07/23/25 sulfamethoxazole 800 1 tab PO Q12H #20 tabs 07/23/25 mg-trimethoprim 160 mg tablet (Bactrim DS) acetaminophen 300 mg-codeine 30 mg 2 tab PO Q8H PRN pain #20 tabs 09/01/25 tablet ibuprofen 800 mg tablet 800 mg PO Q8H PRN pain #30 tabs 09/01/25 Allergies Allergy/AdvReac Type Severity Reaction Status Date / Time No Known Allergies Allergy Verified 09/01/25 16:28 Review of Systems Review of Systems Systems Reviewed: All systems reviewed, normal except as documented Past Medical History Past Medical History PSYCHO/SOCIAL: Positive Depression and Anxiety ED Exam Narrative Physical exam: See [facility] for Dr. Mitchell's Physical Exam Documentation. Course Quality Measures none Orders Category Date Time Status Crutches .NOW Care 09/01/25 18:56 Completed XR ankle LT 2V Stat Exams 09/01/25 17:36 Completed XR foot comp LT min 3V Stat Exams 09/01/25 17:36 Completed ACETAMINOPHEN w/COD 300-30 [Tylenol w/Cod #3] Med 09/01/25 18:38 Discontinued 2 tab PO X1 ONE Vital Signs Vital signs: Vital Signs Temperature 98.3 F 09/01/25 17:27 Pulse Rate 87 09/01/25 17:27 Respiratory Rate 19 09/01/25 17:27 Blood Pressure 146/89 H 09/01/25 17:27 Pulse Oximetry (%) 96 09/01/25 17:27 Oxygen Delivery Method Room Air 09/01/25 17:27 Extremity Injury, Lower [facility] Narrative [facility] Narrative:: This section includes all my notes and documentations, including HPI, PE, and ED course. Braeden Mitchell MD HPI: 24 y/o female presents with left ankle/foot pain. Believes the pain is due to an injury about a year ago when she did not seek medical attention. Reports pain on and off since the injury. May be worse in the past week or so. Has trouble describing the quality and quantity of the pain and describing exacerbating/relieving factors. No other complaints. ROS: All negative except as documented in HPI. Physical Exam: General: Alert and oriented. No acute distress remaining still. Eyes: Conjunctivae and lids clear. ENT: No nasal congestion. Neck: Supple. Lungs: No respiratory distress. Skin: Warm and dry. Neuro: Alert and oriented X 3. Left Ankle/Foot: Equivocal tenderness, difficult to localize. No significant edema. No erythema/calor. No limited range of motion. I reviewed all diagnostic test results: My interpretation of the left foot/ankle x-rays is 8 mm bony spur off the dorsal surface of the talus. At this point, diagnoses include: Ankle Bone Spur Treatment here included: Two Tylenol #3 She started to feel better. Recommended more outpatient care. Based on my best medical judgment, made decision no further evaluation or treatment indicated at this time. Patient understands and agrees to the discharge instructions customized and printed, see below. Discharge Instructions from Dr. Mitchell printed for you: 1. After evaluation, your pain is due to heel spur. See attached handout. 2. Weightbearing as tolerated. 3. Apply ice or heat if helpful. 4. Ibuprofen 800 mg every 6-8 hours today and tomorrow to decrease inflammation then as needed. Tylenol with codeine for severe pain. 5. See a private doctor on 09/03/2025 for recheck. Ask for a referral to see a central communications specialist for further care. Some people choose to have surgery to remove the spur. 5. Seek immediate medical care with worsening or with any concerns. Braeden Mitchell MD Patient data External records reviewed:: [facility] previous records (Reviewed prior ED records from 07/23/25. Patient was seen for Abdominal wall abscess.) Clinical information provided by:: patient Social determinants that could affect healthcare access:: none Patient has the following chronic illnesses:: Anxiety, Depression How is presenting disease/condition affected by chronic disease/condition?: uneffected by Evaluation data The following diagnostics were reviewed and interpreted by me:: radiology exam(s) Lab and/or radiology exams considered but not ordered:: None Interpretation Summary: I reviewed all diagnostic test results: My interpretation of the left foot/ankle x-rays is 8 mm bony spur off the dorsal surface of the talus. Medications / Prescriptions Medications or Prescriptions considered but not ordered:: None Medication administrations:: Medication Administration History Discontinued Medications Acetaminophen/Codeine Phosphate (Acetaminophen W/Cod 300-30 Tablet) 2 tab PO X1 ONE Stop: 09/01/25 18:39 Last Admin: 09/01/25 18:47 Dose: 2 tab Documented By: OA Treatment here included: Two Tylenol #3 Consultations Consultation(s) initiated? (list below): No Diagnosis Extremity Injury, Lower Differential Diagnosis: ankle sprain and strain, puncture wound of foot, fracture of toe and ankle fracture Most likely diagnosis given after review of the tests above:: Ankle Bone Spur Admission Indicated Admission indicated?: not indicated Explain why admission is indicated or not indicated:: With no condition needing emergent intervention, there was no indication for admission. Admission Request Was there a request for admission?: No Disposition Plan Disposition Plan: Discharge Discharge Attestation Discharge Attestation: The patient and all family members were given an opportunity to ask questions and understood the discharge instructions. Discharge instructions specifically effects, indications for sooner follow up or return to the emergency department, and the expected course of current diagnosis. Patient condition: Stable Discharge Plan Plan Patient Disposition: HOME (Self Care) Prescriptions/Referrals Prescriptions/Med Rec: New ibuprofen 800 mg tablet 800 mg PO Q8H PRN (Reason: pain) Qty: 30 0RF acetaminophen-codeine 300-30 mg tablet 2 tab PO Q8H MDD 6 PRN (Reason: pain) Qty: 20 0RF No Action enoxaparin 40 mg/0.4 mL Syringe 40 mg SCi QDAY Qty: 4 10RF cephalexin 500 mg tablet 500 mg PO QID Qty: 40 0RF sulfamethoxazole-trimethoprim [Bactrim DS] 800-160 mg tablet 1 tab PO Q12H Qty: 20 0RF folic acid 1 mg tablet 1 mg PO DAILY Patient Comments: TAKE 1 TABLET BY MOUTH ONCE DAILY Vitamin 27 mg iron- 800 mcg tablet 1 tab PO DAILY Patient Comments: TAKE 1 TABLET BY MOUTH ONCE DAILY ferrous sulfate 325 mg (65 mg iron) tablet 325 mg PO QDAY Qty: 60 0RF Referrals: Paul Lou MD [Primary Care Provider, Family Practice] - In 1 week Problem List Clinical Impression: Ankle bone spur Patient/Caregiver Discharge Instructions Discharge Activity: activity as tolerated Education Materials: ED Heel Spur Additional Instructions: Discharge Instructions from Dr. Mitchell printed for you: 1. After evaluation, your pain is due to heel spur. See attached handout. 2. Weightbearing as tolerated. 3. Apply ice or heat if helpful. 4. Ibuprofen 800 mg every 6-8 hours today and tomorrow to decrease inflammation then as needed. Tylenol with codeine for severe pain. 5. See a private doctor on 09/03/2025 for recheck. Ask for a referral to see a central communications specialist for further care. Some people choose to have surgery to remove the spur. 5. Seek immediate medical care with worsening or with any concerns. Print Language: Cymraes Stand Alone Forms: [employer] Award Info., Patient Portal Info Letter
[2025-09-01] MEDS: ACETAMINOPHEN w/COD 300-30 TABLET 2 TAB PO (18:47)
== END 2025-09-01 19:20 | disposition home or self-care (01) ==
PROVIDERS: Emergency Provider Emergency Medicine; PCP Family Medicine
DX: S99.912A Unspecified injury of left ankle, initial encounter (principal); X50.0XXA Overexertion from strenuous movement or load, initial encounter
CPT/HCPCS: 73600; 73630; 99283; A9270

== ENCOUNTER 2025-09-14 18:57 | Emergency (ER) | payer MEDICAID, SELFPAY ==
[2025-09-14 19:27] VITALS: BP 113/80; BP 72/41; PULSE 94; RESP 18; TEMP 36.6; O2SAT 98
[2025-09-14 19:29] VITALS: BMI 44.8
[2025-09-14] MEDS: DEXAMETHASONE SOD PHOS INJ 10 MG/ML VIAL IM (19:51)
[2025-09-14] MEDS: KETOROLAC INJ 60 MG/2 ML VIAL 30 MG IM (19:52)
--- NOTE | 2025-09-14 23:53 | PD.EDANKLE ---
Lower Extremity Injury RME/HPI General Chief Complaint: Ankle/Foot Injury Stated Complaint: Left foot pain, bone spur Time Seen by Provider: 09/14/25 18:59 Arrival date/time: 09/14/25 18:57 This is a case of 24-year-old female with no medical history came into the emergency room due to a left ankle pain with swelling there is no injury there is no trauma noted pain was on and off for 1 year patient was here September 01, 2025 where x-rays were performed and noted to have a bone spur in the talus patient was given pain medication with codeine but since his breast-feeding on and off wanted a medication without codeine Limitations: no limitations Related Data Home Medications ?Medication ?Instructions ?Recorded ?Confirmed folic acid 1 mg tablet 1 mg PO DAILY 04/15/25 06/18/25 vits no.130-ferrous fum 1 tab PO DAILY 04/15/25 06/18/25 27 mg iron-folic acid 800 mcg tablet ( Vitamin) Previous Rx's ?Medication ?Instructions ?Recorded ferrous sulfate 325 mg (65 mg 325 mg PO QDAY #60 tabs 05/06/25 iron) tablet enoxaparin 40 mg/0.4 mL 40 mg (0.4 mL) SCi QDAY #4 mL 07/06/25 subcutaneous syringe cephalexin 500 mg tablet 500 mg PO QID #40 tabs 07/23/25 sulfamethoxazole 800 1 tab PO Q12H #20 tabs 07/23/25 mg-trimethoprim 160 mg tablet (Bactrim DS) acetaminophen 300 mg-codeine 30 mg 2 tab PO Q8H PRN pain #20 tabs 09/01/25 tablet ibuprofen 800 mg tablet 800 mg PO Q8H PRN pain #30 tabs 09/01/25 ketorolac 10 mg tablet 10 mg PO Q8H PRN pain #10 tabs 09/14/25 Allergies Allergy/AdvReac Type Severity Reaction Status Date / Time No Known Allergies Allergy Verified 09/14/25 19:03 Review of Systems Review of Systems Systems Reviewed: All systems reviewed, normal except as documented Constitutional Constitutional: Reports system reviewed and no additional complaints, except as documented and Reports as per HPI Cardiovascular Cardiovascular: Reports system reviewed and no additional complaints, except as documented and Reports as per HPI Respiratory Respiratory: Reports system reviewed and no additional complaints, except as documented and Reports as per HPI Gastrointestinal Gastrointestinal: Reports system reviewed and no additional complaints, except as documented and Reports as per HPI Musculoskeletal Musculoskeletal: Reports system reviewed and no additional complaints, except as documented and Reports as per HPI Neurologic Neurologic: Reports system reviewed and no additional complaints, except as documented Past Medical History Past Medical History NEUROLOGIC: Negative Neurological Disorders or Seizures CARDIAC: Negative Cardiac Disorders, Angina, Aneurysm or Congestive Heart Failure RESPIRATORY: Negative Chronic Obstructive Pulmonary Disease (COPD) or Asthma GASTROINTESTINAL: Negative Gastrointestinal Disorders GENITOURINARY: Negative Genitourinary Disorders or Renal Disease REPRODUCTIVE: Negative Pelvic Inflammatory Disease MUSCULOSKELETAL: Negative Musculoskeletal Disorders ENDOCRINE: Negative Endocrine Disorders, Diabetes Mellitus Type 1 or Diabetes Mellitus Type 2 HEMATOLOGIC: Negative Blood Disorders or Sickle Cell Disease PSYCHO/SOCIAL: Positive Depression and Anxiety OTHER HISTORY: Negative Autoimmune Disease, Blood Transfusions, Blood Transfusion Reaction, Anesthesia Reactions, Organ Transplant, MRSA, VRSA or Cancer Family History FAMILY HISTORY: Negative Family Psychiatric Problems, Family Respiratory Disorders, Family Cardiac Disorders, Family Gastrointestinal Problems, Family Cancer, Family Surgery or Family Anesthesia Reaction Surgical History SURGICAL: Negative Cardiac Surgery, Endocrine Surgery, Ear Surgery, Abdominal Surgery, Nephrectomy, Joint Replacement, Neurologic Surgery, Section or Organ Transplant Social History SMOKING STATUS: Never smoker SUBSTANCE USE: does not use ED Exam General Limitations: Present no limitations General appearance: Present alert, in no apparent distress and other (Patient is awake alert oriented not in distress nontoxic looking well-hydrated well-nourished) Head Head exam: Present atraumatic, normocephalic and normal inspection Eye Eye exam: Present normal appearance, PERRL and EOMI ENT ENT exam: Present normal exam, normal oropharynx and mucous membranes moist Neck Neck exam: Present normal inspection, full ROM and trachea midline; Absent tenderness, meningismus, lymphadenopathy or thyromegaly Chest Chest inspection: Present normal inspection and symmetric chest wall rise; Absent tenderness Respiratory Respiratory exam: Present normal lung sounds bilaterally; Absent respiratory distress, wheezes, stridor, accessory muscle use or prolonged expiratory phase Cardiovascular Cardiovascular exam: Present regular rate, normal rhythm and normal heart sounds; Absent bradycardia, tachycardia, irregular rhythm, systolic murmur or diastolic murmur Abdominal Exam Abdominal exam: Present soft and normal bowel sounds; Absent distention, tenderness, guarding, rebound, rigidity, diminished bowel sounds, hyperactive bowel sounds, hypoactive bowel sounds or organomegaly Extremities Exam Extremities exam: Present normal inspection and full ROM Expanded Lower Extremity Exam Ankle exam: Present tenderness, swelling and other (Mild tenderness on the lateral side of the left ankle with mild swelling no crepitation no deformity no redness Achilles tendon intact no calf tenderness negative Hwang signs negative Homans signs ROM intact neurovascular); Absent abrasion, laceration, ecchymosis, deformity, crepitus, dislocation, erythema, tenderness over talofibular lig or anterior draw sign Back Exam Back exam: Present normal inspection and full ROM Neurological Exam Neurological exam: Present alert, oriented X3, CN II-XII intact and normal gait; Absent motor sensory deficit or reflexes normal Psychiatric Psychiatric exam: Present normal affect and normal mood Skin Skin exam: Present warm, dry, intact and normal color Course Quality Measures none Orders Category Date Time Status Dexamethasone Inj [Decadron Inj] Med 09/14/25 19:41 Discontinued 10 mg IM X1 ONE Ketorolac Inj [Toradol Inj] Med 09/14/25 19:41 Discontinued 30 mg IM X1 ONE Vital Signs Vital signs: Vital Signs Temperature 97.9 F 09/14/25 19:27 Pulse Rate 94 09/14/25 19:27 Respiratory Rate 18 09/14/25 19:27 Blood Pressure 72/41 L 09/14/25 19:27 Pulse Oximetry (%) 98 09/14/25 19:27 Oxygen Delivery Method Room Air 09/14/25 19:27 Oxygen saturation is 98% normal Extremity Injury, Lower MDM Narrative MDM Narrative:: This is a case of 24-year-old female with no medical history came into the emergency room due to a left ankle pain with swelling there is no injury there is no trauma noted pain was on and off for 1 year patient was here September 01, 2025 where x-rays were performed and noted to have a bone spur in the talus patient was given pain medication with codeine but since his breast-feeding on and off wanted a medication without codeine physical examination showed Mild tenderness on the lateral side of the left ankle with mild swelling no crepitation no deformity no redness Achilles tendon intact no calf tenderness negative Hwang signs negative Homans signs ROM intact neurovascular intact patient was given dexamethasone and the Toradol which improved the pain patient was advised to see an orthopedic surgeon for possible MRI to rule out ligament injury and for further evaluation and treatment of bone spur patient was given Toradol as needed for pain patient was advised for any worsening symptoms or any emergent concern return precaution in the ER was advised patient states that at this time she is not breast-feeding and cannot take Toradol as needed for pain Patient was discharged with comfortable condition walking with stable gait. Patient verbalized no further complains explained diagnosis and answered patient question. Patient is comfortable with the proposed management plan including the need to follow up with his/her primary care physician and any specialist if applicable Discussed patient for any urgent condition or worsening sx, He/She needed to go to emergency room immediately or call 911. Patient acknowledge the responsibility to follow up as instructed and to monitor her/his symptoms. For any persistence of the symptoms for more than 3-5 days return precaution advised. Discussed the result of the test and was given printed discharge instruction Patient data External records reviewed:: [facility] previous records Clinical information provided by:: patient Social determinants that could affect healthcare access:: none (None) Patient has the following chronic illnesses:: None How is presenting disease/condition affected by chronic disease/condition?: no chronic disease Evaluation data The following diagnostics were reviewed and interpreted by me:: radiology exam(s) Lab and/or radiology exams considered but not ordered:: Reviewed Interpretation Summary: Reviewed Medications / Prescriptions Medications or Prescriptions considered but not ordered:: Given Medication administrations:: Medication Administration History Discontinued Medications Dexamethasone Sodium Phosphate (Dexamethasone Sod Phos Inj 10 Mg/Ml Vial) 10 mg IM X1 ONE Stop: 09/14/25 19:42 Last Admin: 09/14/25 19:51 Dose: 10 mg Documented By: JOSE ALBERTO Ketorolac Tromethamine (Ketorolac Inj 60 Mg/2 Ml Vial) 30 mg IM X1 ONE Stop: 09/14/25 19:42 Last Admin: 09/14/25 19:52 Dose: 30 mg Documented By: JOSE ALBERTO Given Consultations Consultation(s) initiated? (list below): No Diagnosis Extremity Injury, Lower Differential Diagnosis: ankle sprain and strain and ankle fracture Most likely diagnosis given after review of the tests above:: Bones for chronic pain Admission Indicated Admission indicated?: not indicated Explain why admission is indicated or not indicated:: Not indicated Admission Request Was there a request for admission?: No Admission Attestation Admission request attestation: Not indicated Disposition Plan Disposition Plan: Discharge Discharge Attestation Discharge Attestation: The patient and all family members were given an opportunity to ask questions and understood the discharge instructions. Discharge instructions specifically effects, indications for sooner follow up or return to the emergency department, and the expected course of current diagnosis. Patient condition: Stable Discharge Plan Plan Patient Disposition: HOME (Self Care) Patient condition on transfer: Stable Prescriptions/Referrals Prescriptions/Med Rec: New ketorolac 10 mg tablet 10 mg PO Q8H PRN (Reason: pain) Qty: 10 0RF Rx Instructions: maximum total duration of 5 days from all oral, intranasal, or parenteral formulations No Action enoxaparin 40 mg/0.4 mL Syringe 40 mg SCi QDAY Qty: 4 10RF cephalexin 500 mg tablet 500 mg PO QID Qty: 40 0RF sulfamethoxazole-trimethoprim [Bactrim DS] 800-160 mg tablet 1 tab PO Q12H Qty: 20 0RF ibuprofen 800 mg tablet 800 mg PO Q8H PRN (Reason: pain) Qty: 30 0RF acetaminophen-codeine 300-30 mg tablet 2 tab PO Q8H MDD 6 PRN (Reason: pain) Qty: 20 0RF folic acid 1 mg tablet 1 mg PO DAILY Patient Comments: TAKE 1 TABLET BY MOUTH ONCE DAILY Vitamin 27 mg iron- 800 mcg tablet 1 tab PO DAILY Patient Comments: TAKE 1 TABLET BY MOUTH ONCE DAILY ferrous sulfate 325 mg (65 mg iron) tablet 325 mg PO QDAY Qty: 60 0RF Problem List Clinical Impression: Chronic pain of left ankle, Bone spur of left ankle Patient/Caregiver Discharge Instructions Education Materials: Understanding Bone Spurs, Understanding Chronic Pain, ED Chronic Pain, ED RICE Additional Instructions: Follow-up with your primary care physician in 2 days for reevaluation and to be referred to orthopedic surgeon for further evaluation and treatment of chronic left ankle pain and bone spur for possible MRI to rule out ligament injury worsening symptoms or any emergent concern call 911 or go to the nearest emergency room ice pack every 2 hours for 20 minutes for 24 hours then alternate with warm compress elevate to decrease swelling keep the ankle brace in place until cleared by your primary care physician Print Language: Spanish Stand Alone Forms: [employer] Award Info., Work/School Release, Patient Portal Info Letter PA/ROOF TECHNICIAN Supervising Physician PA/ROOF TECHNICIAN Supervising Physician: Dr. Bryant
== END 2025-09-14 20:57 | disposition home or self-care (01) ==
LOC: SERX 20:11
PROVIDERS: Emergency Provider Emergency Medicine; PCP Family Medicine
DX: G89.29 Other chronic pain (principal); M77.52 Other enthesopathy of left foot and ankle
CPT/HCPCS: 96372; 99282; J1100; J1885

== ENCOUNTER 2025-09-17 19:49 | Emergency (ER) | payer MEDICAID, SELFPAY ==
[2025-09-17 19:49] VITALS: BMI 44.6
[2025-09-17 20:17] VITALS: BP 126/83; PULSE 82; RESP 18; TEMP 36.8; O2SAT 97
--- NOTE | 2025-09-17 20:30 | XR_ITS ---
EXAMINATION: PA chest single view TECHNIQUE: Upright PA chest single view Date and time: September 17, 2025, 2039 hours, comparison July 04, 2025 INDICATIONS: Chest heaviness weakness beginning 2 days ago. FINDINGS: Mild to moderate enlargement left ventricle No lobar pneumonia or pulmonary edema Intact osseous structures IMPRESSION: Mild to moderate enlargement left ventricle No lobar pneumonia or pulmonary edema
--- NOTE | 2025-09-17 20:31 | PD.EDWEAK ---
ED Weakness RME/HPI General Chief complaint: Nausea/Vomiting/Diarrhea Stated complaint: GENERAL WEAKNESS/ NAUSEA X 2DAYS Time Seen by Provider: 09/17/25 20:05 Source: patient, RN notes reviewed and old records reviewed Arrival date/time: 09/17/25 19:49 Mode of arrival: ambulatory Limitations: no limitations RME / HPI RME / HPI Narrative: 24yof presents to ED for 2-day history of fatigue and intermittent dizziness. Patient reports chest heaviness, generalized body aches and mild nausea. No fever, cough, shortness of breath, vomiting/diarrhea, abdominal pain, headache or syncope reported. No medications or treatment since symptom onset. Related Data Home Medications ?Medication ?Instructions ?Recorded ?Confirmed folic acid 1 mg tablet 1 mg PO DAILY 04/15/25 06/18/25 vits no.130-ferrous fum 1 tab PO DAILY 04/15/25 06/18/25 27 mg iron-folic acid 800 mcg tablet ( Vitamin) Previous Rx's ?Medication ?Instructions ?Recorded ferrous sulfate 325 mg (65 mg 325 mg PO QDAY #60 tabs 05/06/25 iron) tablet enoxaparin 40 mg/0.4 mL 40 mg (0.4 mL) SCi QDAY #4 mL 07/06/25 subcutaneous syringe cephalexin 500 mg tablet 500 mg PO QID #40 tabs 07/23/25 sulfamethoxazole 800 1 tab PO Q12H #20 tabs 07/23/25 mg-trimethoprim 160 mg tablet (Bactrim DS) acetaminophen 300 mg-codeine 30 mg 2 tab PO Q8H PRN pain #20 tabs 09/01/25 tablet ibuprofen 800 mg tablet 800 mg PO Q8H PRN pain #30 tabs 09/01/25 ketorolac 10 mg tablet 10 mg PO Q8H PRN pain #10 tabs 09/14/25 meclizine 25 mg tablet 25 mg PO Q8HR PRN dizziness #30 09/17/25 tabs ondansetron 4 mg disintegrating 4 mg PO Q6H PRN nausea and 09/17/25 tablet vomiting #10 tabs Allergies Allergy/AdvReac Type Severity Reaction Status Date / Time No Known Allergies Allergy Verified 09/14/25 19:03 Review of Systems Review of Systems Systems Reviewed: All systems reviewed, normal except as documented Constitutional Constitutional: Denies chills, Reports fatigue, Denies fever(s) and Denies headache(s) Eyes Eyes: Denies blurry vision and Denies change in vision ENT Ears, Nose, Mouth, and Throat: Reports dizziness, Denies otalgia, Denies headache(s) and Denies nasal congestion Cardiovascular Cardiovascular: Reports chest pain (Heaviness), Denies dyspnea, Reports lightheadedness and Denies syncope Respiratory Respiratory: Denies cough and Denies dyspnea Gastrointestinal Gastrointestinal: Reports nausea and Denies vomiting Musculoskeletal Musculoskeletal: Reports myalgias Neurologic Neurologic: Reports dizziness, Denies headache(s) and Denies syncope Endocrine Endocrine: Reports fatigue Past Medical History Past Medical History GASTROINTESTINAL: Positive Obesity Surgical History SURGICAL: Positive Section Social History SMOKING STATUS: Never smoker SUBSTANCE USE: does not use ALCOHOL: Never Past Medical History Comments PMH COMMENT: enlarged heart ED Exam General Limitations: Present no limitations General appearance: Present alert, in no apparent distress and obese Head Head exam: Present atraumatic and normocephalic Eye Eye exam: Present normal appearance, PERRL and EOMI ENT ENT exam: Present normal exam and mucous membranes moist Neck Neck exam: Present normal inspection and full ROM Chest Chest inspection: Present normal inspection and symmetric chest wall rise Respiratory Respiratory exam: Present normal lung sounds bilaterally; Absent respiratory distress Cardiovascular Cardiovascular exam: Present regular rate and normal rhythm Abdominal Exam Abdominal exam: Present soft; Absent distention or tenderness Extremities Exam Extremities exam: Present normal inspection and full ROM; Absent pedal edema Neurological Exam Neurological exam: Present alert, oriented X3, CN II-XII intact and normal gait; Absent motor sensory deficit Psychiatric Psychiatric exam: Present normal affect and normal mood Skin Skin exam: Present warm, dry, intact and normal color Course Quality Measures none Orders Category Date Time Status EKG (ED ONLY) *Do not use* NOW Care 09/17/25 20:30 Completed CXR [XR chest 1V] Stat Exams 09/17/25 20:30 Completed EKG (ED Only) Stat Exams 09/17/25 20:30 Ordered BNP [B-Type Natriuretic Peptide] Stat Lab 09/17/25 21:10 Completed CBC Stat Lab 09/17/25 21:10 Completed CMP [Comprehensive Metabolic Panel] Stat Lab 09/17/25 21:10 Completed HCG Qualitative,Urine Stat Lab 09/17/25 21:34 Completed Troponin I Stat Lab 09/17/25 21:10 Completed UA [Urinalysis] Stat Lab 09/17/25 21:34 Completed Meclizine HCl [Antivert] Med 09/17/25 20:30 Discontinued 25 mg PO X1 ONE Ondansetron Odt [Zofran Odt] Med 09/17/25 20:30 Discontinued 4 mg PO X1 ONE Vital Signs Vital signs: Vital Signs Temperature 98.3 F 09/17/25 20:17 Pulse Rate 82 09/17/25 20:17 Respiratory Rate 18 09/17/25 20:17 Blood Pressure 126/83 09/17/25 20:17 Pulse Oximetry (%) 97 09/17/25 20:17 Oxygen Delivery Method Room Air 09/17/25 20:17 PROCEDURES: EKG Interpretation #1: Date of EK09/17/25 Time of EK:40 Rate: 78 Interpretation: Interpreted by me EKG Impression: Normal sinus rhythm (with sinus arrythymia), No acute ST-T changes, No ectopy, No ischemic changes, Normal QRS, Normal intervals and Normal axis Additional EKG comment: No stemi Weakness MDM Narrative MDM Narrative:: 24yof presents to ED for 2-day history of fatigue and intermittent dizziness. Patient reports chest heaviness, generalized body aches and mild nausea. No fever, cough, shortness of breath, vomiting/diarrhea, abdominal pain, headache or syncope reported. No medications or treatment since symptom onset. Patient reassessed. Symptoms improved after medications administered. Patient is non-toxic appearing, vitals are stable. ED work up reassuring. Encouraged rest, fluids, symptomatic treatment prn. Close follow-up with PCP as needed. Stable for discharge, RTED precautions given. Patient data External records reviewed:: [facility] previous records (09/14/2025 ED visit for bone spur of left ankle) Clinical information provided by:: patient Social determinants that could affect healthcare access:: other (specify) (poor access to healthcare, unemployed) Patient has the following chronic illnesses:: obesity, enlarged heart How is presenting disease/condition affected by chronic disease/condition?: exacerbated by Evaluation data The following diagnostics were reviewed and interpreted by me:: lab results, radiology exam(s) and EKG tracing(s) Lab and/or radiology exams considered but not ordered:: Covid/flu: results would not affect treatment plan CT head: patient is neurologically intact, no red flag s/sxs Interpretation Summary: No leukocytosis No anemia CXR: No acute process per my read Negative upreg UA -leuks Negative trop BNP wnl Medications / Prescriptions Medications or Prescriptions considered but not ordered:: No antibiotic recommended at this time Medication administrations:: Medication Administration History Discontinued Medications Meclizine HCl (Meclizine Hcl 25 Mg Tablet) 25 mg PO X1 ONE Stop: 09/17/25 20:31 Last Admin: 09/17/25 21:27 Dose: 25 mg Documented By: JEFFRY Ondansetron HCl (Ondansetron Odt 4 Mg Tabrap) 4 mg PO X1 ONE; Protocol Stop: 09/17/25 20:31 Last Admin: 09/17/25 21:27 Dose: 4 mg Documented By: JEFFRY Above medications administered in ED Consultations Consultation(s) initiated? (list below): No Diagnosis Weakness Differential Diagnosis: other (Dehydration, electrolyte imbalance, , anemia, UTI, pneumonia, pleural effusion) Most likely diagnosis given after review of the tests above:: Dizziness, fatigue Admission Indicated Admission indicated?: not indicated Admission Request Was there a request for admission?: No Disposition Plan Disposition Plan: Discharge Discharge Attestation Discharge Attestation: The patient and all family members were given an opportunity to ask questions and understood the discharge instructions. Discharge instructions specifically effects, indications for sooner follow up or return to the emergency department, and the expected course of current diagnosis. Patient condition: Stable Discharge Plan Plan Patient Disposition: HOME (Self Care) Patient condition on transfer: Stable Prescriptions/Referrals Prescriptions/Med Rec: New ondansetron 4 mg tablet,disintegrating 4 mg PO Q6H PRN (Reason: nausea and vomiting) Qty: 10 0RF meclizine 25 mg tablet 25 mg PO Q8HR PRN (Reason: dizziness) Qty: 30 0RF No Action enoxaparin 40 mg/0.4 mL Syringe 40 mg SCi QDAY Qty: 4 10RF cephalexin 500 mg tablet 500 mg PO QID Qty: 40 0RF sulfamethoxazole-trimethoprim [Bactrim DS] 800-160 mg tablet 1 tab PO Q12H Qty: 20 0RF ibuprofen 800 mg tablet 800 mg PO Q8H PRN (Reason: pain) Qty: 30 0RF acetaminophen-codeine 300-30 mg tablet 2 tab PO Q8H MDD 6 PRN (Reason: pain) Qty: 20 0RF ketorolac 10 mg tablet 10 mg PO Q8H PRN (Reason: pain) Qty: 10 0RF Rx Instructions: maximum total duration of 5 days from all oral, intranasal, or parenteral formulations folic acid 1 mg tablet 1 mg PO DAILY Patient Comments: TAKE 1 TABLET BY MOUTH ONCE DAILY Vitamin 27 mg iron- 800 mcg tablet 1 tab PO DAILY Patient Comments: TAKE 1 TABLET BY MOUTH ONCE DAILY ferrous sulfate 325 mg (65 mg iron) tablet 325 mg PO QDAY Qty: 60 0RF Referrals: Temporary Provider,ED [Physician, Emergency Medicine] - In 1 week Problem List Clinical Impression: Fatigue, Dizziness Patient/Caregiver Discharge Instructions Education Materials: ED Dizziness, Uncertain Cause Print Language: Barbadian Stand Alone Forms: Tiffanie Award Info., Patient Portal Info Letter PA/AUTO WRECKER Supervising Physician PA/AUTO WRECKER Supervising Physician: Paula
[2025-09-17] MEDS: ONDANSETRON ODT 4 MG TABRAP PO (21:27)
[2025-09-17] MEDS: MECLIZINE HCL 25 MG TABLET PO (21:27)
[2025-09-17 21:38] LABS: Basophils # (Auto) 0.0 Thou/mm3 (0.0-0.2); Basophils % (Auto) 1 % (0-2.5); Eosinophils # (Auto) 0.1 Thou/mm3 (0.0-0.5); Eosinophils % (Auto) 1 % (0-10); Hematocrit 36.0 % (36.0-46.0); Hemoglobin 12.1 g/dL (12.0-16.0); Immature Granulocytes Auto 0.06 Thou/mm3 (0.00-0.00); Lymphocytes # (Auto) 3.7 Thou/mm3 (1.0-4.8); Lymphocytes % (Auto) 48 % (10-50); Mean Corpuscular HGB Conc 33.6 g/dl (31.0-37.0); Mean Corpuscular Hemoglobin 26.8 pg (25.0-35.0); Mean Corpuscular Volume 80 fL (80-100); Monocytes # (Auto) 0.4 Thou/mm3 (0.0-0.8); Monocytes % (Auto) 5 % (0-12); Neutrophils # (Auto) 3.5 Thou/mm3 (1.8-7.7); Neutrophils % (Auto) 45 % (37-80); Nucleated Red Blood Cell # 0.00 Thou/mm3 (0.00-0.00); Nucleated Red Blood Cell % 0 /100 WBC (0); Platelet Count 245 Thou/mm3 (140-440); RDW Standard Deviation 40.3 fL (36.4-46.3); Red Blood Count 4.52 Miln/mm3 (4.00-5.20); White Blood Count 7.8 Thou/mm3 (3.6-11.0)
[2025-09-17 21:52] LABS: Collection Type, Urine Clean Catch
[2025-09-17 21:58] LABS: Bilirubin,Urine Negative (Negative); Blood,Urine Negative (Negative); Clarity,Urine Clear (Clear/Hazy); Color,Urine Lt-Yellow (Lt Yel-Yel); Glucose, Urine Negative (Negative); HCG Qualitative,Urine Negative; Ketones,Urine Negative (Negative); Leukocyte Esterase,Urine Negative (Negative); Nitrite,Urine Negative (Negative); PH,Urine 6.5 (5.0-7.0); Protein,Urine Negative (Neg - Trace); RBC,Urine 1 /hpf (0-3); Specific Gravity,Urine 1.013 (1.001-1.035); Squamous Epithelial Cell,Urine 3 /hpf (0-5); Urobilinogen,Urine Negative mg/dL (0.0-1.0); WBC,Urine 2 /hpf (0-5)
[2025-09-17 22:09] LABS: B-Type Natriuretic Peptide 65 pg/mL (0-100)
[2025-09-17 22:11] LABS: Alanine Aminotransferase 24 U/L (10-49); Albumin, Serum 4.3 gm/dL (3.5-5.0); Albumin/Globulin Ratio 1.7 (1.2-2.2); Alkaline Phosphatase 91 U/L (46-116); Anion Gap 10 (7-16); Aspartate Amino Transferase 21 U/L (0-34); BUN/Creatinine Ratio 10 Ratio (12-20); Bilirubin,Total 0.7 mg/dL (0.3-1.2); Blood Urea Nitrogen 6 mg/dL (9-23); Calcium 9.1 mg/dL (8.3-10.6); Calcium (Corrected) 9.1 mg/dL (8.5-10.1); Carbon Dioxide 26.2 mMol/L (20.0-31.0); Chloride 107 mMol/L (98-107); Creatinine (Component) 0.6 mg/dL (0.6-1.3); Estimated Creatinine Clearance 169.7 mL/min (>60); Globulin 2.6 gm/dL (2.3-3.5); Glucose 89 mg/dL (74-106); Osmolality,Calculated 281 (275-295); Potassium 3.8 mMol/L (3.4-5.1); Sodium 143 mMol/L (136-145); Total Protein 6.9 gm/dL (5.7-8.2); Troponin I < 0.020 ng/mL (0.0-0.045); eGFR > 60 See Note
== END 2025-09-17 22:23 | disposition home or self-care (01) ==
PROVIDERS: Physician Assistant; Emergency Provider Emergency Medicine; PCP Family Medicine
DX: R42 Dizziness and giddiness (principal); R53.83 Other fatigue
CPT/HCPCS: 36415; 71045; 80053; 81001; 81025; 83880; 84484; 85025; 93005; 99283; Q0162; A9270

== ENCOUNTER 2025-09-22 14:27 | Emergency (ER) | payer MEDICAID, SELFPAY ==
[2025-09-22 14:47] VITALS: BP 113/75; PULSE 86; RESP 18; TEMP 37.2; O2SAT 99
--- NOTE | 2025-09-22 14:48 | PD.EDDIZZY ---
ED Dizzyness RME/HPI General Chief Complaint: Dizziness Stated Complaint: Dizzy X 1 week, vomiting Time Seen by Provider: 09/22/25 14:47 Arrival date/time: 09/22/25 14:27 RME / HPI RME / HPI Narrative: See [facility] for Dr. Mitchell's HPI Documentation. Related Data Home Medications ?Medication ?Instructions ?Recorded ?Confirmed folic acid 1 mg tablet 1 mg PO DAILY 04/15/25 06/18/25 vits no.130-ferrous fum 1 tab PO DAILY 04/15/25 06/18/25 27 mg iron-folic acid 800 mcg tablet ( Vitamin) Previous Rx's ?Medication ?Instructions ?Recorded ferrous sulfate 325 mg (65 mg 325 mg PO QDAY #60 tabs 05/06/25 iron) tablet enoxaparin 40 mg/0.4 mL 40 mg (0.4 mL) SCi QDAY #4 mL 07/06/25 subcutaneous syringe cephalexin 500 mg tablet 500 mg PO QID #40 tabs 07/23/25 sulfamethoxazole 800 1 tab PO Q12H #20 tabs 07/23/25 mg-trimethoprim 160 mg tablet (Bactrim DS) acetaminophen 300 mg-codeine 30 mg 2 tab PO Q8H PRN pain #20 tabs 09/01/25 tablet ibuprofen 800 mg tablet 800 mg PO Q8H PRN pain #30 tabs 09/01/25 ketorolac 10 mg tablet 10 mg PO Q8H PRN pain #10 tabs 09/14/25 meclizine 25 mg tablet 25 mg PO Q8HR PRN dizziness #30 09/17/25 tabs ondansetron 4 mg disintegrating 4 mg PO Q6H PRN nausea and 09/17/25 tablet vomiting #10 tabs meclizine 25 mg tablet 25 mg PO BID PRN dizziness #20 tabs 09/22/25 ondansetron 4 mg disintegrating 4 mg PO TID PRN nausea and 09/22/25 tablet vomiting 30 days #10 tabs scopolamine base 1 mg over 3 days 1 mg topical .q72 hours PRN 09/22/25 transdermal patch (Transderm-Scop) dizziness or vertigo #4 ea Allergies Allergy/AdvReac Type Severity Reaction Status Date / Time No Known Allergies Allergy Verified 09/22/25 14:32 Review of Systems Review of Systems Systems Reviewed: All systems reviewed, normal except as documented Past Medical History Past Medical History GASTROINTESTINAL: Positive Obesity PSYCHO/SOCIAL: Positive Depression and Anxiety Surgical History SURGICAL: Positive Section Social History SMOKING STATUS: Never smoker SUBSTANCE USE: does not use ALCOHOL: Never ED Exam Narrative Physical exam: See [facility] for Dr. Mitchell's HPI Documentation. Course Quality Measures none Orders Category Date Time Status Bedside COVID-19 Antigen Test NOW Care 09/22/25 14:49 Completed EKG (ED ONLY) *Do not use* NOW Care 09/22/25 14:50 Completed Saline [Insert IV] NOW Care 09/22/25 14:[address] head/brain wo con Stat Exams 09/22/25 14:50 Completed EKG (ED Only) Stat Exams 09/22/25 14:50 Draft XR chest 1V portable Stat Exams 09/22/25 14:50 Completed Alcohol, Blood Medical Stat Lab 09/22/25 15:46 Completed BNP [B-Type Natriuretic Peptide] Stat Lab 09/22/25 15:46 Completed CBC Stat Lab 09/22/25 15:46 Completed CMP [Comprehensive Metabolic Panel] Stat Lab 09/22/25 15:46 Completed Drug Screen,Urine Stat Lab 09/22/25 16:19 Completed Influenza A & B Rapid Panel Stat Lab 09/22/25 15:21 Completed Magnesium Stat Lab 09/22/25 15:46 Completed TSH [Thyroid Stimulating Hormone] Stat Lab 09/22/25 15:46 Completed Troponin I Stat Lab 09/22/25 15:46 Completed UA, C/S IF [Urinalysis, C/S if Indicated] Stat Lab 09/22/25 16:19 Completed Meclizine HCl [Antivert] Med 09/22/25 14:50 Discontinued 25 mg PO X1 ONE Ondansetron Inj [Zofran Inj] Med 09/22/25 14:50 Discontinued 4 mg IVP X1 ONE Scopolamine [Transderm-Scop Patch] Med 09/22/25 14:50 Discontinued 1 mg TOP X1 ONE Sodium Chloride 0.9% 1000 ml [Ns] 1,000 ml Med 09/22/25 14:50 Discontinued IV 999 mls/hr Vital Signs Vital signs: Vital Signs Temperature 99.0 F 09/22/25 14:47 Pulse Rate 86 09/22/25 14:47 Respiratory Rate 18 09/22/25 14:47 Blood Pressure 113/75 09/22/25 14:47 Pulse Oximetry (%) 99 09/22/25 14:47 Oxygen Delivery Method Room Air 09/22/25 14:47 Dizziness MDM Narrative MDM Narrative:: This section includes all my notes and documentations, including HPI, PE, and ED course. Braeden Mitchell MD HPI: 24-year-old female comes with 6 days of dizziness and vomiting. Describes spinning sensation, worse with moving. Feels seasick and drunk. No other complaints. ROS: All negative except as documented in HP Physical Exam: General: Alert and oriented. No acute distress when remaining still. Eyes: Conjunctivae and lids clear. EOMI. PERRL. ENT: No nasal congestion. Pharynx normal. Tympanic membrane normal bilaterally. Neck: Supple. No carotid bruit. No JVD. Heart: RRR. Lungs: No respiratory distress. Good air movement. No rhonchi, wheezing, rales. Abdomen: Soft and nontender. Skin: Warm and dry. Neuro: Alert and oriented X 3. Cranial Nerves II-XII grossly intact. No peripheral motor deficits. I reviewed all diagnostic test results: My interpretation of the EKG: NSR (91 bpm) with no ST-T changes. My interpretation of the chest x-ray is NAD. My review of the head CT report is: NAD. Blood tests and urine tests unremarkable. Covid/Influenza negative. At this point, diagnoses include: Vertigo Treatment here included: Meclizine 25 mg Ondansetron 4 mg Scopolamine patch IVF Significant improvement noted. Recommended more outpatient workup. Based on my best medical judgment, made decision no further evaluation or treatment indicated at this time. Patient understands and agrees to the discharge instructions customized and printed, see below. Discharge instructions from Dr. Mitchell: ? After extensive evaluation, there is no life-threatening condition.? Such as stroke or brain tumor or heart attack. -- Your severe symptoms are due to vertigo.? This is an inner ear problem that makes you feel like you are drunk or seasick.? See attached handout. -- Use scopolamine patch and/or meclizine for your severe symptoms. -- And Zofran for nausea/vomiting.? And increase oral fluid to prevent dehydration.? Maintain clear urine.? If dark or yellow, increase oral fluid. -- And do everything very slowly.? Including moving your head.? And when you sit up or stand up, wait a minute before you progress.? -- See your private doctor on 09/24/2025 for recheck. If needed, ask to help you get more care not available here in the ER.? Such as MRI imaging of your brain, physical therapy, table tilt test, and referrals to see specialists (such as neurologist and ENT specialist). Ask to review all test results and official radiology reports, to make sure you receive all necessary follow-ups and monitoring. -- Seek immediate medical care with worsening or with any concerns. Braeden Mitchell MD Patient data External records reviewed:: [facility] previous records Clinical information provided by:: patient Social determinants that could affect healthcare access:: mental health Patient has the following chronic illnesses:: Anxiety, Depression How is presenting disease/condition affected by chronic disease/condition?: uneffected by Evaluation data The following diagnostics were reviewed and interpreted by me:: lab results and EKG tracing(s) (My interpretation of the EKG: NSR (91 bpm) with no ST-T changes. Braeden Mitchell MD) Lab and/or radiology exams considered but not ordered:: none Interpretation Summary: I reviewed all diagnostic test results: My interpretation of the EKG: NSR (91 bpm) with no ST-T changes. My interpretation of the chest x-ray is NAD. My review of the head CT report is: NAD. Blood tests and urine tests unremarkable. Covid/Influenza negative. Medications / Prescriptions Medications or Prescriptions considered but not ordered:: none Medication administrations:: Medication Administration History Discontinued Medications Sodium Chloride (Ns) 1,000 mls @ 999 mls/hr IV .Q1H1M ONE Stop: 09/22/25 15:50 Last Infusion: 09/22/25 16:50 Dose: Infused Documented By: Admin: 09/22/25 15:49 Dose: 999 mls/hr Documented By: BD Meclizine HCl (Meclizine Hcl 25 Mg Tablet) 25 mg PO X1 ONE Stop: 09/22/25 14:51 Last Admin: 09/22/25 15:29 Dose: 25 mg Documented By: BD Ondansetron HCl (Ondansetron Inj 2 Mg/Ml Inj 2 Ml) 4 mg IVP X1 ONE; Protocol Stop: 09/22/25 14:51 Last Admin: 09/22/25 15:49 Dose: 4 mg Documented By: BD Scopolamine (Scopolamine 1 Mg Tdsy) 1 mg TOP X1 ONE Stop: 09/22/25 14:51 Last Admin: 09/22/25 15:29 Dose: 1 mg Documented By: BD Treatment here included: Meclizine 25 mg Ondansetron 4 mg Scopolamine patch IVF Consultations Consultation(s) initiated? (list below): No Diagnosis Dizziness Differential Diagnosis: adverse reaction to drug, benign paroxysmal positional vertigo, orthostatic hypotension, vertebral basilar insufficiency, cerebrovascular accident, acute vestibular neuronitis and transient cerebral ischemia Most likely diagnosis given after review of the tests above:: Vertigo Admission Indicated Admission indicated?: not indicated Explain why admission is indicated or not indicated:: With significant improvement and no condition needing urgent intervention, there was no indication for admission. Admission Request Was there a request for admission?: No Disposition Plan Disposition Plan: Discharge Discharge Attestation Discharge Attestation: The patient and all family members were given an opportunity to ask questions and understood the discharge instructions. Discharge instructions specifically effects, indications for sooner follow up or return to the emergency department, and the expected course of current diagnosis. Patient condition: Stable Discharge Plan Plan Patient Disposition: HOME (Self Care) Prescriptions/Referrals Prescriptions/Med Rec: New meclizine 25 mg tablet 25 mg PO BID PRN (Reason: dizziness) Qty: 20 0RF scopolamine base [Transderm-Scop] 1 mg over 3 days patch 3 day 1 mg topical .q72 hours PRN (Reason: dizziness or vertigo) Qty: 4 0RF ondansetron 4 mg tablet,disintegrating 4 mg PO TID PRN (Reason: nausea and vomiting) 30 Days Qty: 10 0RF No Action enoxaparin 40 mg/0.4 mL Syringe 40 mg SCi QDAY Qty: 4 10RF cephalexin 500 mg tablet 500 mg PO QID Qty: 40 0RF sulfamethoxazole-trimethoprim [Bactrim DS] 800-160 mg tablet 1 tab PO Q12H Qty: 20 0RF ibuprofen 800 mg tablet 800 mg PO Q8H PRN (Reason: pain) Qty: 30 0RF acetaminophen-codeine 300-30 mg tablet 2 tab PO Q8H MDD 6 PRN (Reason: pain) Qty: 20 0RF ketorolac 10 mg tablet 10 mg PO Q8H PRN (Reason: pain) Qty: 10 0RF Rx Instructions: maximum total duration of 5 days from all oral, intranasal, or parenteral formulations ondansetron 4 mg tablet,disintegrating 4 mg PO Q6H PRN (Reason: nausea and vomiting) Qty: 10 0RF meclizine 25 mg tablet 25 mg PO Q8HR PRN (Reason: dizziness) Qty: 30 0RF folic acid 1 mg tablet 1 mg PO DAILY Patient Comments: TAKE 1 TABLET BY MOUTH ONCE DAILY Vitamin 27 mg iron- 800 mcg tablet 1 tab PO DAILY Patient Comments: TAKE 1 TABLET BY MOUTH ONCE DAILY ferrous sulfate 325 mg (65 mg iron) tablet 325 mg PO QDAY Qty: 60 0RF Referrals: Paul Lou MD [Primary Care Provider, Family Practice] - In 1 week Problem List Clinical Impression: Vertigo Patient/Caregiver Discharge Instructions Discharge Activity: activity as tolerated Education Materials: ED Vertigo, Unspecified Additional Instructions: Discharge instructions from Dr. Mitchell: ? After extensive evaluation, there is no life-threatening condition.? Such as stroke or brain tumor or heart attack. -- Your severe symptoms are due to vertigo.? This is an inner ear problem that makes you feel like you are drunk or seasick.? See attached handout. -- Use scopolamine patch and/or meclizine for your severe symptoms. -- And Zofran for nausea/vomiting.? And increase oral fluid to prevent dehydration.? Maintain clear urine.? If dark or yellow, increase oral fluid. -- And do everything very slowly.? Including moving your head.? And when you sit up or stand up, wait a minute before you progress.? -- See your private doctor on 09/24/2025 for recheck. If needed, ask to help you get more care not available here in the ER.? Such as MRI imaging of your brain, physical therapy, table tilt test, and referrals to see specialists (such as neurologist and ENT specialist). Ask to review all test results and official radiology reports, to make sure you receive all necessary follow-ups and monitoring. -- Seek immediate medical care with worsening or with any concerns. Print Language: German Stand Alone Forms: Tiffanie Award Info., Patient Portal Info Letter
--- NOTE | 2025-09-22 14:50 | XR_ITS ---
Examination: CT brain head without contrast. 2-D sagittal coronal reconstructions Date and time of exam: 09/22/2025, 3:18 p.m. Comparison July 08, 2025 INDICATION: Mental status changes CTDI: vol (mGy): 54.5 DLP: (mGycm): 1015 Technique: Multiple CT axial sections of the brain have been obtained, 5 mm slice thickness. Contrast has not been administered. 2-D sagittal, coronal reconstructions have been obtained Low dose protocols were performed. One or more of the following dose reduction techniques were used; automated exposure control, adjustment of the mA and/or KV according to patient size, use of iterative reconstruction technique. Findings: No significant ventricular enlargement. Intra-axial or extra-axial hemorrhage density is not seen. No mass effect or midline shift Basal cisterns are not remarkable. Fourth ventricle is midline. Cranial vault intact. Impression: Negative for acute hemorrhage, mass effect or midline shift
--- NOTE | 2025-09-22 14:50 | EKG_ITS ---
[facility] Test Date: 2025-09-22 Pat Name: VITALY HENRIQUEZ Department: Room: - Gender: Female Technical Documentation Specialist: : [id number] Requested By: Braeden Pérez Order Number: [id number] Reading MD: Braeden Pérez Measurements Intervals Vina Rate: 91 P: 53 [place]: 170 QRS: 33 QRSD: 79 T: 29 QT: 341 QTc: 421 Interpretive Statements SINUS RHYTHM Compared to ECG 07/08/2025 15:55:59 Sinus tachycardia no longer present /store/S0/[id number].pdf
--- NOTE | 2025-09-22 14:50 | XR_ITS ---
Exam: Chest 1 view, AP Date and time of exam: 09/22/2025, 10:59 a.m. Comparison: 09/17/2025, Findings: Cardiac silhouette is enlarged unchanged from prior exam No mediastinal adenopathy. No acute fracture No pulmonary edema or pneumonia. Impression: Stable cardiomegaly No focal mass or infiltrate
[2025-09-22] MEDS: SCOPOLAMINE 1 MG TDSY TOP (15:29)
[2025-09-22] MEDS: MECLIZINE HCL 25 MG TABLET PO (15:29)
--- NOTE | 2025-09-22 15:48 | PC.NURSE ---
pt does not want in and out cath
[2025-09-22] MEDS: ONDANSETRON INJ 2 MG/ML INJ 2 ML 4 MG IVP (15:49)
[2025-09-22] MEDS: SODIUM CHLORIDE 0.9% 1000 ML 1,000 ML 999 ML IV (15:49)
[2025-09-22 15:51] VITALS: BMI 45.1
[2025-09-22 16:02] LABS: Basophils # (Auto) 0.0 Thou/mm3 (0.0-0.2); Basophils % (Auto) 0 % (0-2.5); Eosinophils # (Auto) 0.1 Thou/mm3 (0.0-0.5); Eosinophils % (Auto) 1 % (0-10); Hematocrit 38.8 % (36.0-46.0); Hemoglobin 12.8 g/dL (12.0-16.0); Immature Granulocytes Auto 0.02 Thou/mm3 (0.00-0.00); Lymphocytes # (Auto) 2.5 Thou/mm3 (1.0-4.8); Lymphocytes % (Auto) 30 % (10-50); Mean Corpuscular HGB Conc 33.0 g/dl (31.0-37.0); Mean Corpuscular Hemoglobin 26.5 pg (25.0-35.0); Mean Corpuscular Volume 80 fL (80-100); Monocytes # (Auto) 0.4 Thou/mm3 (0.0-0.8); Monocytes % (Auto) 5 % (0-12); Neutrophils # (Auto) 5.4 Thou/mm3 (1.8-7.7); Neutrophils % (Auto) 64 % (37-80); Nucleated Red Blood Cell # 0.00 Thou/mm3 (0.00-0.00); Nucleated Red Blood Cell % 0 /100 WBC (0); Platelet Count 238 Thou/mm3 (140-440); RDW Standard Deviation 42.0 fL (36.4-46.3); Red Blood Count 4.83 Miln/mm3 (4.00-5.20); White Blood Count 8.4 Thou/mm3 (3.6-11.0)
[2025-09-22 16:24] LABS: B-Type Natriuretic Peptide < 20 pg/mL (0-100)
[2025-09-22 16:31] LABS: Collection Type, Urine Clean Catch
[2025-09-22 16:31] LABS: Alanine Aminotransferase 19 U/L (10-49); Albumin, Serum 4.4 gm/dL (3.5-5.0); Albumin/Globulin Ratio 1.7 (1.2-2.2); Alcohol, Blood Medical < 3.0 mg/dL (0-10.0); Alkaline Phosphatase 92 U/L (46-116); Anion Gap 9 (7-16); Aspartate Amino Transferase 16 U/L (0-34); BUN/Creatinine Ratio 9 Ratio (12-20); Bilirubin,Total 0.7 mg/dL (0.3-1.2); Blood Urea Nitrogen 7 mg/dL (9-23); Calcium 9.1 mg/dL (8.3-10.6); Calcium (Corrected) 9.1 mg/dL (8.5-10.1); Carbon Dioxide 27.4 mMol/L (20.0-31.0); Chloride 108 mMol/L (98-107); Creatinine (Component) 0.8 mg/dL (0.6-1.3); Estimated Creatinine Clearance 128.2 mL/min (>60); Globulin 2.6 gm/dL (2.3-3.5); Glucose 80 mg/dL (74-106); Magnesium 1.8 mg/dL (1.6-2.6); Osmolality,Calculated 283 (275-295); Potassium 3.9 mMol/L (3.4-5.1); Sodium 144 mMol/L (136-145); Thyroid Stimulating Hormone 0.63 uIU/mL (0.55-4.78); Total Protein 7.0 gm/dL (5.7-8.2); Troponin I < 0.002 ng/mL (0.0-0.045); eGFR > 60 See Note
[2025-09-22 16:39] LABS: Bilirubin,Urine Negative (Negative); Blood,Urine Negative (Negative); Clarity,Urine Clear (Clear/Hazy); Color,Urine Lt-Yellow (Lt Yel-Yel); Culture Indicated,Urine Not Indicated; Glucose, Urine Negative (Negative); Ketones,Urine Negative (Negative); Leukocyte Esterase,Urine Negative (Negative); Nitrite,Urine Negative (Negative); PH,Urine 6.5 (5.0-7.0); Protein,Urine Negative (Neg - Trace); RBC,Urine 5 /hpf (0-3); Specific Gravity,Urine 1.016 (1.001-1.035); Squamous Epithelial Cell,Urine 1 /hpf (0-5); Urobilinogen,Urine Negative mg/dL (0.0-1.0); WBC,Urine 1 /hpf (0-5)
[2025-09-22 16:56] LABS: Influenza A Ag Negative; Influenza B Ag Negative
[2025-09-22 16:57] LABS: Amphetamine/Methamp Scrn,U Negative (Negative); Barbiturate Screen,Urine Negative (Negative); Benzodiazepines Screen,Urine Negative (Negative); Benzoylecgonine Screen, Ur Negative (Negative); Fentanyl Screen,Urine Negative (Negative); Opiate Screen,Urine Negative (Negative); THC Screen,Urine Negative (Negative)
[2025-09-22 17:00] VITALS: BP 137/86; PULSE 86; RESP 16; TEMP 36.9; O2SAT 100
== END 2025-09-22 17:38 | disposition home or self-care (01) ==
PROVIDERS: Emergency Provider Emergency Medicine; PCP Family Medicine
DX: F10.129 Alcohol abuse with intoxication, unspecified (principal); Y90.9 Presence of alcohol in blood, level not specified; Z11.52 Encounter for screening for COVID-19
CPT/HCPCS: 36415; 70450; 71045; 80053; 80307; 80320; 81001; 83735; 83880; 84443; 84484; 85025; 87502; 87635; 93005; 96361; 96374; 99284; J2405; J7030; A9270; G0480

== ENCOUNTER 2025-10-26 21:01 | Emergency (ER) | payer MEDICAID, SELFPAY ==
[2025-10-26 21:03] VITALS: BMI 44.8
[2025-10-26 21:19] VITALS: BP 119/79; PULSE 95; RESP 18; TEMP 36.7; O2SAT 98
--- NOTE | 2025-10-26 22:16 | PD.EDANKLE ---
Lower Extremity Injury RME/HPI General Chief Complaint: Extremity Problem,Nontraumatic Stated Complaint: LEFT LEG PAIN X1 WEEK Time Seen by Provider: 10/26/25 21:22 Arrival date/time: 10/26/25 21:01 24F with no significant PMH presents to ED with 1 week of L foot pain due to her known bone spur. Patient denies leg swelling and fall/trauma. Patient has Tylenol #3 at home, which helps, but patient doesn't want to take more opioids. Limitations: no limitations Related Data Home Medications ?Medication ?Instructions ?Recorded ?Confirmed folic acid 1 mg tablet 1 mg PO DAILY 04/15/25 06/18/25 vits no.130-ferrous fum 1 tab PO DAILY 04/15/25 06/18/25 27 mg iron-folic acid 800 mcg tablet ( Vitamin) Previous Rx's ?Medication ?Instructions ?Recorded ferrous sulfate 325 mg (65 mg 325 mg PO QDAY #60 tabs 05/06/25 iron) tablet enoxaparin 40 mg/0.4 mL 40 mg (0.4 mL) SCi QDAY #4 mL 07/06/25 subcutaneous syringe cephalexin 500 mg tablet 500 mg PO QID #40 tabs 07/23/25 sulfamethoxazole 800 1 tab PO Q12H #20 tabs 07/23/25 mg-trimethoprim 160 mg tablet (Bactrim DS) acetaminophen 300 mg-codeine 30 mg 2 tab PO Q8H PRN pain #20 tabs 09/01/25 tablet ibuprofen 800 mg tablet 800 mg PO Q8H PRN pain #30 tabs 09/01/25 ketorolac 10 mg tablet 10 mg PO Q8H PRN pain #10 tabs 09/14/25 meclizine 25 mg tablet 25 mg PO Q8HR PRN dizziness #30 09/17/25 tabs ondansetron 4 mg disintegrating 4 mg PO Q6H PRN nausea and 09/17/25 tablet vomiting #10 tabs meclizine 25 mg tablet 25 mg PO BID PRN dizziness #20 tabs 09/22/25 scopolamine base 1 mg over 3 days 1 mg topical .q72 hours PRN 09/22/25 transdermal patch (Transderm-Scop) dizziness or vertigo #4 ea Allergies Allergy/AdvReac Type Severity Reaction Status Date / Time No Known Allergies Allergy Verified 10/26/25 21:03 Review of Systems Review of Systems Systems Reviewed: All systems reviewed, normal except as documented Musculoskeletal Musculoskeletal: Reports as per HPI and Reports arthralgias Past Medical History Past Medical History NEUROLOGIC: Positive Migraine; Negative Neurological Disorders or Seizures CARDIAC: Positive Cardiac Disorders (enlarged heart); Negative Angina, Aneurysm or Congestive Heart Failure RESPIRATORY: Negative Chronic Obstructive Pulmonary Disease (COPD) or Asthma GASTROINTESTINAL: Positive Gastroesophageal Reflux Disease and Obesity; Negative Gastrointestinal Disorders GENITOURINARY: Negative Genitourinary Disorders or Renal Disease REPRODUCTIVE: Positive Previous Pregnancies; Negative Pelvic Inflammatory Disease MUSCULOSKELETAL: Positive Arthritis; Negative Musculoskeletal Disorders ENDOCRINE: Negative Endocrine Disorders, Diabetes Mellitus Type 1 or Diabetes Mellitus Type 2 HEMATOLOGIC: Negative Blood Disorders or Sickle Cell Disease PSYCHO/SOCIAL: Positive Depression and Anxiety OTHER HISTORY: Negative Autoimmune Disease, Blood Transfusions, Blood Transfusion Reaction, Anesthesia Reactions, Organ Transplant, MRSA, VRSA or Cancer Family History FAMILY HISTORY: Negative Family Psychiatric Problems, Family Respiratory Disorders, Family Cardiac Disorders, Family Gastrointestinal Problems, Family Cancer, Family Surgery or Family Anesthesia Reaction Surgical History SURGICAL: Positive Section; Negative Cardiac Surgery, Endocrine Surgery, Ear Surgery, Abdominal Surgery, Nephrectomy, Joint Replacement, Neurologic Surgery or Organ Transplant Social History SMOKING STATUS: Never smoker SUBSTANCE USE: does not use ED Exam General Limitations: Present no limitations General appearance: Present alert and in no apparent distress Head Head exam: Present atraumatic Neck Neck exam: Present normal inspection, full ROM and trachea midline Chest Chest inspection: Present normal inspection and symmetric chest wall rise Neurological Exam Neurological exam: Present alert and oriented X3 Psychiatric Psychiatric exam: Present normal affect and normal mood Skin Skin exam: Present warm, dry, intact and normal color Course Quality Measures none Orders Category Date Time Status Ketorolac Inj [Toradol Inj] Med 10/26/25 21:23 Discontinued 60 mg IM X1 ONE Vital Signs Vital signs: Vital Signs Temperature 98.1 F 10/26/25 21:19 Pulse Rate 95 10/26/25 21:19 Respiratory Rate 18 10/26/25 21:19 Blood Pressure 119/79 10/26/25 21:19 Pulse Oximetry (%) 98 10/26/25 21:19 Oxygen Delivery Method Room Air 10/26/25 21:19 O2 at 98% on RA and WNLs Extremity Injury, Lower MDM Narrative MDM Narrative:: 24F with no significant PMH presents to ED with 1 week of L foot pain due to her known bone spur. Patient denies leg swelling and fall/trauma. Patient has Tylenol #3 at home, which helps, but patient doesn't want to take more opioids. Physical exam reveals uncomfortable obese female. Patient is afebrile, calm, and alert. Meds and auto travel counselor given. Patient data External records reviewed:: [facility] previous records Clinical information provided by:: patient Social determinants that could affect healthcare access:: none Patient has the following chronic illnesses:: none How is presenting disease/condition affected by chronic disease/condition?: no chronic disease Evaluation data The following diagnostics were reviewed and interpreted by me:: other (specify) (none) Lab and/or radiology exams considered but not ordered:: not ordered Interpretation Summary: n/a Medications / Prescriptions Medications or Prescriptions considered but not ordered:: ordered Medication administrations:: Medication Administration History Discontinued Medications Ketorolac Tromethamine (Ketorolac Inj 60 Mg/2 Ml Vial) 60 mg IM X1 ONE Stop: 10/26/25 21:24 above Consultations Consultation(s) initiated? (list below): No Diagnosis Extremity Injury, Lower Differential Diagnosis: ankle sprain and strain, acute internal derangement of knee, puncture wound of foot, fracture of toe, ankle fracture and other (bone spur) Most likely diagnosis given after review of the tests above:: bone spur Admission Indicated Admission indicated?: not indicated Admission Request Was there a request for admission?: No Disposition Plan Disposition Plan: Discharge Discharge Attestation Discharge Attestation: The patient and all family members were given an opportunity to ask questions and understood the discharge instructions. Discharge instructions specifically effects, indications for sooner follow up or return to the emergency department, and the expected course of current diagnosis. Patient condition: Stable Discharge Plan Plan Patient Disposition: HOME (Self Care) Discharge Disposition comment: Stable Prescriptions/Referrals Prescriptions/Med Rec: No Action enoxaparin 40 mg/0.4 mL Syringe 40 mg SCi QDAY Qty: 4 10RF cephalexin 500 mg tablet 500 mg PO QID Qty: 40 0RF sulfamethoxazole-trimethoprim [Bactrim DS] 800-160 mg tablet 1 tab PO Q12H Qty: 20 0RF ibuprofen 800 mg tablet 800 mg PO Q8H PRN (Reason: pain) Qty: 30 0RF acetaminophen-codeine 300-30 mg tablet 2 tab PO Q8H MDD 6 PRN (Reason: pain) Qty: 20 0RF ketorolac 10 mg tablet 10 mg PO Q8H PRN (Reason: pain) Qty: 10 0RF Rx Instructions: maximum total duration of 5 days from all oral, intranasal, or parenteral formulations ondansetron 4 mg tablet,disintegrating 4 mg PO Q6H PRN (Reason: nausea and vomiting) Qty: 10 0RF meclizine 25 mg tablet 25 mg PO Q8HR PRN (Reason: dizziness) Qty: 30 0RF meclizine 25 mg tablet 25 mg PO BID PRN (Reason: dizziness) Qty: 20 0RF scopolamine base [Transderm-Scop] 1 mg over 3 days patch 3 day 1 mg topical .q72 hours PRN (Reason: dizziness or vertigo) Qty: 4 0RF folic acid 1 mg tablet 1 mg PO DAILY Patient Comments: TAKE 1 TABLET BY MOUTH ONCE DAILY Vitamin 27 mg iron- 800 mcg tablet 1 tab PO DAILY Patient Comments: TAKE 1 TABLET BY MOUTH ONCE DAILY ferrous sulfate 325 mg (65 mg iron) tablet 325 mg PO QDAY Qty: 60 0RF Problem List Clinical Impression: Bone spur Patient/Caregiver Discharge Instructions Education Materials: Foot Surgery: Bone Spurs Additional Instructions: Please follow-up with PCP within 24-48 hours and return immediately if symptoms worsen. Print Language: Malay Stand Alone Forms: Patient Portal Info Letter DON/SEBASTIAN Supervising Physician DON/SEBASTIAN Supervising Physician: Dr. Mitchell
[2025-10-26] MEDS: KETOROLAC INJ 60 MG/2 ML VIAL IM (22:24)
== END 2025-10-26 22:28 | disposition home or self-care (01) ==
LOC: SERX 21:51
PROVIDERS: Emergency Provider Emergency Medicine; PCP Family Medicine
DX: M77.8 Other enthesopathies, not elsewhere classified (principal)
CPT/HCPCS: 96372; 99282; J1885